=== PATIENT | female | born 2000 | race African-American/Black ===

== ENCOUNTER 2024-01-15 08:56 | Emergency (ER) | payer OTHER ==
--- OUTSIDE RECORDS SUMMARY | 2024-01-15 09:01 | XMS REPORT | Continuity of Care Document ---
Author Name Unknown Address [address] [place] [address] [facility] Address [address] [place] [address] Care Team Providers Care Technical Education Teacher Name Role Phone Donna Smith Primary Care Physician [phone] SANTOS MADSEN Attending Clinician Unavailable FERN MAC Attending Clinician Unavailable WALESKA BOLANOS Attending Clinician UnavailCHUCKY Fraga Attending Clinician Unavailable [facility] Attending Clinician Unavailable Chloé SALAS, Kiara Attending Clinician [phone] KIARA VORA Attending Clinician Unavailab le 2, [facility] Attending Clinician Unavailable PER SANDERS Attending Clinician UnavailPER Brock Attending Clinician Unavaila Tamy Mckeon MD Attending Clinician [phone] SANTA LINK Attending Clinician Unavailable Santa Link MD Attending Clinician [phone] Doctor Unassigned, Ethel Attending Clinician U nikolayailLUBA Bliss Attending Clinician Unavailable Luba Cespedes Attending Clinician [phone] ROMEL FIGUEROA Attending Clinician UnavailRomel Rodarte MD Attending Clinician [phone] Payers Payer Name Policy Type Policy Number Effective Date Expirati on Date Source AETNA MP [facility] O MEDICAL DOCTOR MD/MEDICAL DIRECTOR 94 ON 9 [id number] 2023 00:00:00 [facility] JACQUI-PHILIPSALOME ROY-C COPAY FOCUS 9 [id number] 2023 00:00:00 Problems Condition Name Condition Details Condition Category Status Onset Date Resolution Date Last Treatment Date Treating Clinician Comments Source Well adult exam Well adult exam Disease Active 01-10 00:00: 00 Jacqui Seybold - Externa l Bipolar affective disorder, remission status unspecifie d (multi HCC) Bipolar affective disorder, remission status unspecifie d (multi HCC) Disease Active 18 00:00: 00 Jacqui Seybold - Externa l Chronic bilateral low back pain without sciatica Chronic bilateral low back pain without sciatica Disease Active 4-25 00:00: 00 Jacqui Seybold - Externa l Vaginal odor Vaginal odor Disease Active 6- 00:00: 00 [facility] BMI 45.0-49.9, adult BMI 45.0-49.9, adult Disease Active 6-11 00:00: 00 [facility] Generalize d anxiety disorder Generalize d anxiety disorder Disease Active 2-09 00:00: 00 [facility] Attention deficit hyperactiv ity disorder, 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, predominan tly inattentiv e type Disease Active 3-14 00:00: 00 [facility] Bipolar disorder Bipolar disorder Disease Active 7-19 00:00: 00 [facility] No known active problems No known active problems Disease [facility] Depression Depression Disease Active K elsey Seybold - Externa l Anxiety Anxiety Disease Active Jacqui Seybold - Externa l Obesity Obesity Disease Active Jacqui Seybold - Externa l Allergies, Adverse Reactions, Alerts Allergy Name Allergy Type Status Severity Reaction(s) Onset Date Inactive Date Treating Clinician Comments Source NO KNOWN ALLERGIE S Drug Class Active [facility] Social History Social Habit Start Date Stop Date Quantity Comments Source Gender identity [facility] Sexual orientation K elsey Seybold - External Alcoholic beverage intake 2024-01-11 00:00:00 2024-01-11 00:00:00 Current drinker of alcohol (finding) Jacqui Ortega - External History of Social function 2023-11-18 00:00:00 2023-11-18 00:00:00 Jacqui Ortega - External Education 2023-11-18 00:00:00 2023-11-18 00:00:00 16 Jacqui Ortega - External Alcohol Comment 2023-11-18 00:00:00 2023-11-18 00:00:00 occasionally Jacqui Ortega - External Tobacco use and exposure 2023-11-17 00:00:00 2023-11-17 00:00:00 Smokeless tobacco non-user Jacqui Ortega - External Alcohol intake 2023-06-01 00:00:00 2023-06-01 00:00:00 Lifetime non-drinker (finding) [facility] Exposure to SARS-CoV-2 (event) 2022-11-15 00:00:00 2022-11-25 15:02:00 Not sure [facility] Sex assigned at 2001 00:00:00 2000 00:00:00 Jacqui Ortega - External Smoking Status Start Date Stop Date Source Unknown if ever smoked [facility] Never smoked tobacco Jacqui Ortega - External Medications Ordered Medication Name Filled Medication Name Start Date Stop Date Current Medication? Ordering Clinician Indication Dosage Frequency Signature (SIG) Comments Components Source Topiramate 25 MG oral Tablet 01-10 00:00: 00 Yes [id number] 104 25mg Take 1 tablet (25 mg total) by mouth 2 times daily. Jacqui parker Bupropion HCL XL 150 MG OR TB24 11-17 00:00: 00 01-10 00:00 :00 No [id number] 150mg Take 1 tablet (150 mg total) by mouth every morning. Jacqui parker Topiramate 25 MG oral Tablet 11-17 00:00: 00 01-10 00:00 :00 No [id number] 104 25mg Take 1 tablet (25 mg total) by mouth daily. Jacqui parker Aripiprazol e 5 MG oral Tablet 2022-07 00:00: 00 11-17 00:00 :00 No 5mg Take 1 tablet (5 mg total) by mouth daily. Jacqui parker semaglutide , weight loss, (WEGOVY) 0.25 mg/0.5 mL PnIj SC injection 2022-07 00:00: 00 07-03 05:59 :00 No [id number] .25mg inject 0.25 mg under the skin weekly for 30 days. 1st dose [facility] semaglutide , weight loss, (WEGOVY) 0.5 mg/0.5 mL PnIj SC injection 2022-07 00:00: 00 07-03 05:59 :00 No [id number] .5mg inject 0.5 mg under the skin weekly for 30 days. 2nd dose [facility] semaglutide , weight loss, (WEGOVY) 1 mg/0.5 mL PnIj SC injection 2022-07 00:00: 00 07-03 05:59 :00 No [id number] 1mg inject 1 mg under the skin weekly for 30 days. 3rd dose [facility] (BLOOD PRESSURE CUFF) [facility] 04-06 00:00: 00 Yes [id number] Blood pressure check twice a day and as needed. [facility] Bupropion HCL XL 300 MG OR TB24 04-06 00:00: 00 11-17 00:00 :00 No 300mg Take 1 tablet (300 mg total) by mouth daily. Jacqui parker ARIPiprazol e (ABILIFY) 2 mg tablet 04-06 00:00: 00 06-02 00:00 :00 No [id number] 2mg Take 1 tablet by mouth in the morning. [facility] naltrexone 50 mg tablet 12 00:00: 00 06-01 00:00 :00 No [id number] 50mg Take 1 tablet by mouth in the morning. [facility] buPROPion XL 150 mg 24 hr tablet 01-04 00:00: 00 04-06 00:00 :00 No [id number] 150mg Take 1 tablet by mouth in the morning. [facility] cariprazine (VRAYLAR) 1.5 mg Cap 01-01 15:20: 51 01-01 00:00 :00 No Vraylar 1.5 mg capsule Take 1 capsule every day by oral route at bedtime for 30 days. [facility] metroNIDAZO LE 500 mg tablet 12-28 00:00: 00 01-05 04:59 :00 No [id number] 500mg Take 1 tablet by mouth every 12 (twelve) hours for 7 days. [facility] terconazole 80 mg vaginal suppository 11-27 00:00: 00 04-06 00:00 :00 No [id number] 80mg Insert 1 Suppositor y into vagina at bedtime. [facility] cariprazine (VRAYLAR) 1.5 mg Cap 11-25 15:34: 08 Yes Vraylar 1.5 mg capsule Take 1 capsule every day by oral route at bedtime for 30 days. [facility] Nitrofurant oin&Nit. Macrocryst 100 mg capsule 08-30 00:00: 00 01-01 00:00 :00 No [id number] 100mg Take 1 capsule by mouth in the morning and 1 capsule in the evening. [facility] No known medications 2020-07 10:02: 56 No [facility] cariprazine (VRAYLAR) 1.5 mg Cap 2020-07 10:02: 11 Yes Vraylar 1.5 mg capsule Take 1 capsule every day by oral route at bedtime for 30 days. [facility] methylPREDN ISolone (MEDROL, HANNY,) 4 mg tablets 2020-07 00:00: 00 01-01 00:00 :00 No [id number] 9103 84mg Take 21 tablets by mouth SEE-INSTRU CTIONS. follow package directions [facility] busPIRone 15 mg tablet 2020-07 0 00:00: 00 01-01 00:00 :00 No [facility] Immunizations Ordered Immunization Name Filled Immunization Name Date Status Comments Source IPV- Inactivated Polio Vaccine Unknown Completed Jacqui Seybold - External IPV- Inactivated Polio Vaccine Unknown Completed Jacqui Seybold - External IPV- Inactivated Polio Vaccine Unknown Completed Jacqui Seybold - External IPV- Inactivated Polio Vaccine Unknown Completed Jacqui Seybold - External Tdap- (Boostrix, Adacel) Unknown Completed Jacqui Seybold - External Varicella Vaccine Unknown Completed Kris lsey Seybold - External Varicella Vaccine Unknown Completed Kris lsey Seybold - External DTaP Unknown Completed Jacqui Sey bold - External DTaP Unknown Completed Jacqui Sey bold - External DTaP Unknown Completed Jacqui Sey bold - External DTaP Unknown Completed Jacqui Rothmany bold - External DTaP Unknown Completed Jacqui Sey bold - External DTaP Unspecified Unknown Completed Jin sey Seybold - External DTaP Unspecified Unknown Completed Jin sey Seybold - External DTaP Unspecified Unknown Completed Jin sey Seybold - External DTaP Unspecified Unknown Completed Jin sey Seybold - External DTaP Unspecified Unknown Completed Jin rothmany Seybold - External Influenza, Injectable, Mdck, Preservative Free, Quadrivalent Unknown Completed Jacqui Se ybold - External HEPATITIS A- PEDI/ADOL Unknown Completed Jacqui Seybold - External HEPATITIS A- PEDI/ADOL Unknown Completed Jacqui Seybold - External Hepatitis B, Adolescent Or Pediatric Unknown Completed Jacqui Seybold - External Hepatitis B, Adolescent Or Pediatric Unknown Completed Jacqui Seybold - External Hepatitis B, Adolescent Or Pediatric Unknown Completed Jacqui Seybold - External HIB- Haemophilus Influenzae Type B Unknown Completed Jacqui Sey bold - External HIB- Haemophilus Influenzae Type B Unknown Completed Jacqui Sey bold - External HIB- Haemophilus Influenzae Type B Unknown Completed Jacqui Sey bold - External HIB- Haemophilus Influenzae Type B Unknown Completed Jacqui Sey bold - External HPV 4 (Human Papillomavirus) Unknown Completed Jacqui Seybo ld - External HPV 4 (Human Papillomavirus) Unknown Completed Jacqui Seybo ld - External HPV 9 (Human Papillomavirus) Unknown Completed Jacqui Seybo ld - External Meningococcal Vaccine- Conjugate(Menactra) Unknown Completed [facility] eybold - External Meningococcal Vaccine- Conjugate(Menactra) Unknown Completed [facility] eybo - External Bexsero (Meningococcal Group B) Unknown Completed [facility] - External Bexsero (Meningococcal Group B) Unknown Completed [facility] - External MMR- Measles, Mumps, Rubella Unknown Completed [facility] - External MMR- Measles, Mumps, Rubella Unknown Completed [facility] - External MMR- Measles, Mumps, Rubella Unknown Completed [facility] - External Pneumococcal Vaccine, Conjugate 7 Unknown Completed [facility] - External Pneumococcal Vaccine, Conjugate 7 Unknown Completed [facility] - External Pneumococcal Vaccine, Conjugate 7 Unknown Completed [facility] External Pneumococcal Vaccine, Conjugate 7 Unknown Completed [facility] External IPV- Inactivated Polio Vaccine Unknown Completed [facility] External IPV- Inactivated Polio Vaccine Unknown Completed [facility] External IPV- Inactivated Polio Vaccine Unknown Completed [facility] External IPV- Inactivated Polio Vaccine Unknown Completed [facility] External Tdap- (Boostrix, Adacel) Unknown Completed [facility] External Varicella Vaccine Unknown Completed [facility] - External Varicella Vaccine Unknown Completed [facility] - External Influenza Virus Vaccine Quad IM, Preserv and ABX Free 6 MO-64 YRS (FLUCELVAX) Unknown Completed [facility] DTAP Unknown Completed [facility] DTAP Unknown Completed [facility] DTAP Unknown Completed [facility] DTAP Unknown Completed [facility] DTAP Unknown Completed [facility] Hep B, Adol or Pedi Dosage Unknown Completed [facility] Hep B, Adol or Pedi Dosage Unknown Completed [facility] Hep B, Adol or Pedi Dosage Unknown Completed [facility] Heamophilus Influenza B Unknown Completed [facility] Heamophilus Influenza B Unknown Completed [facility] Heamophilus Influenza B Unknown Completed [facility] IPV Unknown Completed [facility] IPV Unknown Completed [facility] IPV Unknown Completed [facility] IPV Unknown Completed [facility] MMR Unknown Completed [facility] MMR Unknown Completed [facility] MMR Unknown Completed [facility] Pneumococcal 7 Conjugate, PCV7 (Prevnar7) Unknown Completed [facility] Pneumococcal 7 Conjugate, PCV7 (Prevnar7) Unknown Completed [facility] Pneumococcal 7 Conjugate, PCV7 (Prevnar7) Unknown Completed [facility] Pneumococcal 7 Conjugate, PCV7 (Prevnar7) Unknown Completed [facility] TDAP Unknown Completed [facility] Varicella (varivax)(chicken pox) Unknown Completed [facility] Varicella (varivax)(chicken pox) [facility] SARS-COV-2 COVID-19 VACCINE - (MODERNA) Unknown Completed [facility] SARS-COV-2 COVID-19 VACCINE - (MODERNA) Unknown Completed [facility] SARS-COV-2 COVID-19 VACCINE - (MODERNA) Unknown Completed [facility] DTaP, Unspecified Formulation Unknown Completed [facility] DTaP, Unspecified Formulation Unknown Completed [facility] DTaP, Unspecified Formulation Unknown Completed [facility] DTaP, Unspecified Formulation Unknown Completed [facility] DTaP, Unspecified Formulation Unknown Completed [facility] Meningococcal Polysaccharide (groups A, C, Y and W-135) conjugate vaccine (MCV4P) Unknown Completed [facility] Meningococcal Polysaccharide (groups A, C, Y and W-135) conjugate vaccine (MCV4P) Unknown Completed [facility] Meningococcal B, OMV Unknown Completed [facility] Meningococcal B, OMV Unknown Completed [facility] HPV9 Unknown Completed [facility] HPV Unknown Completed [facility] HPV Unknown Completed [facility] HIB 4 Dose Schedule Unknown Completed [facility] HEPATITIS A Unknown Completed [facility] HEPATITIS A Unknown Completed [facility] Influenza Virus Vaccine Quad IM, Preserv and ABX Free 6 MO-64 YRS (FLUCELVAX) Unknown Completed [facility] DTAP Unknown Completed [facility] DTAP Unknown Completed [facility] DTAP Unknown Completed [facility] DTAP Unknown Completed [facility] DTAP Unknown Completed [facility] Hep B, Adol or Pedi Dosage Unknown Completed [facility] Hep B, Adol or Pedi Dosage Unknown Completed [facility] Hep B, Adol or Pedi Dosage Unknown Completed [facility] Heamophilus Influenza B Unknown Completed [facility] Heamophilus Influenza B Unknown Completed [facility] Heamophilus Influenza B Unknown Completed [facility] IPV Unknown Completed [facility] IPV Unknown Completed [facility] IPV Unknown Completed [facility] IPV Unknown Completed [facility] MMR Unknown Completed [facility] MMR Unknown Completed [facility] MMR Unknown Completed [facility] Pneumococcal 7 Conjugate, PCV7 (Prevnar7) Unknown Completed [facility] Pneumococcal 7 Conjugate, PCV7 (Prevnar7) Unknown Completed [facility] Pneumococcal 7 Conjugate, PCV7 (Prevnar7) Unknown Completed [facility] Pneumococcal 7 Conjugate, PCV7 (Prevnar7) Unknown Completed [facility] TDAP Unknown Completed [facility] Varicella (varivax)(chicken pox) Unknown Completed [facility] Varicella (varivax)(chicken pox) Unknown Completed [facility] SARS-COV-2 COVID-19 VACCINE - (MODERNA) Unknown Completed [facility] SARS-COV-2 COVID-19 VACCINE - (MODERNA) Unknown Completed [facility] SARS-COV-2 COVID-19 VACCINE - (MODERNA) Unknown Completed [facility] DTaP, Unspecified Formulation Unknown Completed [facility] DTaP, Unspecified Formulation Unknown Completed [facility] DTaP, Unspecified Formulation Unknown Completed [facility] DTaP, Unspecified Formulation Unknown Completed [facility] DTaP, Unspecified Formulation Unknown Completed [facility] Meningococcal Polysaccharide (groups A, C, Y and W-135) conjugate vaccine (MCV4P) Unknown Completed [facility] Meningococcal Polysaccharide (groups A, C, Y and W-135) conjugate vaccine (MCV4P) Unknown Completed [facility] Meningococcal B, OMV Unknown Completed [facility] Meningococcal B, OMV Unknown Completed [facility] HPV9 Unknown Completed [facility] HPV Unknown Completed [facility] HPV Unknown Completed [facility] HIB 4 Dose Schedule Unknown Completed [facility] HEPATITIS A Unknown Completed [facility] HEPATITIS A Unknown Completed [facility] Influenza Virus Vaccine Quad IM, Preserv and ABX Free 6 MO-64 YRS (FLUCELVAX) Unknown Completed [facility] DTAP Unknown Completed [facility] DTAP Unknown Completed [facility] DTAP Unknown Completed [facility] DTAP Unknown Completed [facility] DTAP Unknown Completed [facility] Hep B, Adol or Pedi Dosage Unknown Completed [facility] Hep B, Adol or Pedi Dosage Unknown Completed [facility] Hep B, Adol or Pedi Dosage Unknown Completed [facility] Heamophilus Influenza B Unknown Completed [facility] Heamophilus Influenza B Unknown Completed [facility] Heamophilus Influenza B Unknown Completed [facility] IPV Unknown Completed [facility] IPV Unknown Completed [facility] IPV Unknown Completed [facility] IPV Unknown Completed [facility] MMR Unknown Completed [facility] MMR Unknown Completed [facility] MMR Unknown Completed [facility] Pneumococcal 7 Conjugate, PCV7 (Prevnar7) Unknown Completed [facility] Pneumococcal 7 Conjugate, PCV7 (Prevnar7) Unknown Completed [facility] Pneumococcal 7 Conjugate, PCV7 (Prevnar7) Unknown Completed [facility] Pneumococcal 7 Conjugate, PCV7 (Prevnar7) Unknown Completed [facility] TDAP Unknown Completed [facility] Varicella (varivax)(chicken pox) Unknown Completed [facility] Varicella (varivax)(chicken pox) Unknown Completed [facility] SARS-COV-2 COVID-19 VACCINE - (MODERNA) Unknown Completed [facility] SARS-COV-2 COVID-19 VACCINE - (MODERNA) Unknown Completed [facility] SARS-COV-2 COVID-19 VACCINE - (MODERNA) Unknown Completed [facility] DTaP, Unspecified Formulation Unknown Completed [facility] DTaP, Unspecified Formulation Unknown Completed [facility] DTaP, Unspecified Formulation Unknown Completed [facility] DTaP, Unspecified Formulation Unknown Completed [facility] DTaP, Unspecified Formulation Unknown Completed [facility] Meningococcal Polysaccharide (groups A, C, Y and W-135) conjugate vaccine (MCV4P) Unknown Completed [facility] Meningococcal Polysaccharide (groups A, C, Y and W-135) conjugate vaccine (MCV4P) Unknown Completed [facility] Meningococcal B, OMV Unknown Completed [facility] Meningococcal B, OMV Unknown Completed [facility] HPV9 Unknown Completed [facility] HPV Unknown Completed [facility] HPV Unknown Completed [facility] HIB 4 Dose Schedule Unknown Completed [facility] HEPATITIS A Unknown Completed [facility] HEPATITIS A Unknown Completed [facility] Influenza Virus Vaccine Quad IM, Preserv and ABX Free 6 MO-64 YRS (FLUCELVAX) Unknown [facility] DT[facility] Unknown Completed [facility] DTAP Unknown Completed [facility] DTAP Unknown Completed [facility] DTAP Unknown Completed [facility] DTAP Unknown Completed [facility] Hep B, Adol or Pedi Dosage Unknown Completed [facility] Hep B, Adol or Pedi Dosage Unknown Completed [facility] Hep B, Adol or Pedi Dosage Unknown Completed [facility] Heamophilus Influenza B Unknown Completed [facility] Heamophilus Influenza B Unknown Completed [facility] Heamophilus Influenza B Unknown Completed [facility] IPV Unknown Completed [facility] IPV Unknown Completed [facility] IPV Unknown Completed [facility] IPV Unknown Completed [facility] MMR Unknown Completed [facility] MMR Unknown Completed [facility] MMR Unknown Completed [facility] Pneumococcal 7 Conjugate, PCV7 (Prevnar7) Unknown Completed [facility] Pneumococcal 7 Conjugate, PCV7 (Prevnar7) Unknown Completed [facility] Pneumococcal 7 Conjugate, PCV7 (Prevnar7) Unknown Completed [facility] Pneumococcal 7 Conjugate, PCV7 (Prevnar7) Unknown Completed [facility] TDAP Unknown Completed [facility] Varicella (varivax)(chicken pox) Unknown Completed [facility] Varicella (varivax)(chicken pox) Unknown Completed [facility] SARS-COV-2 COVID-19 VACCINE - (MODERNA) Unknown Completed [facility] SARS-COV-2 COVID-19 VACCINE - (MODERNA) Unknown Completed [facility] SARS-COV-2 COVID-19 VACCINE - (MODERNA) Unknown Completed [facility] DTaP, Unspecified Formulation Unknown Completed [facility] DTaP, Unspecified Formulation Unknown Completed [facility] DTaP, Unspecified Formulation Unknown Completed [facility] DTaP, Unspecified Formulation Unknown Completed [facility] DTaP, Unspecified Formulation Unknown Completed [facility] Meningococcal Polysaccharide (groups A, C, Y and W-135) conjugate vaccine (MCV4P) Unknown Completed [facility] Meningococcal Polysaccharide (groups A, C, Y and W-135) conjugate vaccine (MCV4P) Unknown Completed [facility] Meningococcal B, OMV Unknown Completed [facility] Meningococcal B, OMV Unknown Completed [facility] HPV9 Unknown Completed [facility] HPV Unknown Completed [facility] HPV Unknown Completed [facility] HIB 4 Dose Schedule Unknown Completed [facility] HEPATITIS A Unknown Completed [facility] HEPATITIS A Unknown Completed [facility] DTaP Unknown Completed Jacqui Sey bold - External DTaP Unknown Completed Jacqui Sey bold - External DTaP Unknown Completed Jacqui Sey bold - External DTaP Unknown Completed Jacqui Sey bold - External DTaP Unknown Completed Jacqui Sey bold - External DTaP Unspecified Unknown Completed Jin sey Seybold - External DTaP Unspecified Unknown Completed Jin sey Seybold - External DTaP Unspecified Unknown Completed Jin sey Seybold - External DTaP Unspecified Unknown Completed Jin sey Seybold - External DTaP Unspecified Unknown Completed Jin sey Seybold - External Influenza, Injectable, Mdck, Preservative Free, Quadrivalent Unknown Completed Jacqui Se ybold - External HEPATITIS A- PEDI/ADOL Unknown Completed Jacqui Seybold - External HEPATITIS A- PEDI/ADOL Unknown Completed Jacqui Seybold - External Hepatitis B, Adolescent Or Pediatric Unknown Completed Jacqui Seybold - External Hepatitis B, Adolescent Or Pediatric Unknown Completed Jacqui Seybold - External Hepatitis B, Adolescent Or Pediatric Unknown Completed Jacqui Seybold - External HIB- Haemophilus Influenzae Type B Unknown Completed Jacqui Sey bold - External HIB- Haemophilus Influenzae Type B Unknown Completed Jacqui Leon bold - External HIB- Haemophilus Influenzae Type B Unknown Completed Jacqui Leon bold - External HIB- Haemophilus Influenzae Type B Unknown Completed Jacqui Leon bold - External HPV 4 (Human Papillomavirus) Unknown Completed Jacqui Fischer ld - External HPV 4 (Human Papillomavirus) Unknown Completed Jacqui Fischer ld - External HPV 9 (Human Papillomavirus) Unknown Completed Jacqui Fischer ld - External Meningococcal Vaccine- Conjugate(Menactra) Unknown Completed Jacqui Terrell eybold - External Meningococcal Vaccine- Conjugate(Menactra) Unknown Completed Jacqui Terrell eybold - External Bexsero (Meningococcal Group B) Unknown Completed Jacqui Seybold - External Bexsero (Meningococcal Group B) Unknown Completed Jacqui Rothmanybold - External MMR- Measles, Mumps, Rubella Unknown Completed Jacqui Rothmanybold - External MMR- Measles, Mumps, Rubella Unknown Completed Jacqui Rothmanybold - External MMR- Measles, Mumps, Rubella Unknown Completed Jacqui Mcdonaldold - External Pneumococcal Vaccine, Conjugate 7 Unknown Completed Jacqui Rothmanybold - External Pneumococcal Vaccine, Conjugate 7 Unknown Completed Jacqui Rothmanybold - External Pneumococcal Vaccine, Conjugate 7 Unknown Completed Jacqui Rothmanybold - External Pneumococcal Vaccine, Conjugate 7 Unknown Completed Jacqui Rothmanybold - External Vital Signs Vital Name Observation Time Observation Value Comments S ource Systolic blood pressure 2024-01-11 19:46:00 122 mm[Hg] Jacqui Mcdonaldo ld - External Diastolic blood pressure 2024-01-11 19:46:00 81 mm[Hg] Jacqui Mcdonaldo ld - External Heart rate 2024-01-11 19:46:00 84 /min Jinse banks Seybsalome - External Body temperature 2024-01-11 19:46:00 37.22 Nadia Jacqui Rothmanybold - External Respiratory rate 2024-01-11 19:46:00 13 /min Jacqui Rothmanybold - External Body height 2024-01-11 19:46:00 167.6 cm Rosa golden Seybold - External Body weight 2024-01-11 19:46:00 146.058 kg Rosa golden Seybold - External BMI 2024-01-11 19:46:00 51.97 kg/m2 Rosa ey Seybold - External Oxygen saturation in Arterial blood by Pulse oximetry 2024-01-11 19:46:00 98 /min Jacqui Mcdonaldo ld - External Systolic blood pressure 2023-11-18 18:56:00 118 mm[Hg] Jacqui Mcdonaldo ld - External Diastolic blood pressure 2023-11-18 18:56:00 68 mm[Hg] Jacqui Mcdonaldo ld - External Heart rate 2023-11-18 18:56:00 88 /min Merry banks Seybsalome - External Body temperature 2023-11-18 18:56:00 37.06 Nadia Jacqui Rothmanybold - External Respiratory rate 2023-11-18 18:56:00 18 /min Jacqui Rothmanybold - External Body height 2023-11-18 18:56:00 168.9 cm Rosaabhay golden Seybold - External Body weight 2023-11-18 18:56:00 146.115 kg Rosaabhay golden Seybold - External BMI 2023-11-18 18:56:00 51.21 kg/m2 Rosa chantel Rothmanybold - External Oxygen saturation in Arterial blood by Pulse oximetry 2023-11-18 18:56:00 98 /min Jacqui Fischer ld - External Systolic blood pressure 2023-06-01 20:25:00 148 mm[Hg] [facility] Diastolic blood pressure 2023-06-01 20:25:00 97 mm[Hg] [facility] Heart rate 2023-06-01 20:23:00 84 /min [facility] 2023-06-01 20:23:00 36.56 Nadia [facility] Respiratory rate 2023-06-01 20:23:00 16 /min [facility] Body height 2023-06-01 20:23:00 168.9 cm [facility] Body weight 2023-06-01 20:23:00 134.31 kg [facility] BMI 2023-06-01 20:23:00 47.08 kg/m2 [facility] Oxygen saturation in Arterial blood by Pulse oximetry 2023-06-01 20:23:00 100 /min [facility] Systolic blood pressure 2023-04-06 19:19:00 168 mm[Hg] [facility] Diastolic blood pressure 2023-04-06 19:19:00 95 mm[Hg] [facility] Heart rate 2023-04-06 19:17:00 89 /min [facility] Body temperature 2023-04-06 19:17:00 37 Nadia [facility] Respiratory rate 2023-04-06 19:17:00 18 /min [facility] Body height 2023-04-06 19:17:00 167.6 cm [facility] Body weight 2023-04-06 19:17:00 134.083 kg [facility] BMI 2023-04-06 19:17:00 47.71 kg/m2 [facility] Oxygen saturation in Arterial blood by Pulse oximetry 2023-04-06 19:17:00 98 /min [facility] Systolic blood pressure 2023-01-01 20:03:00 136 mm[Hg] [facility] Diastolic blood pressure 2023-01-01 20:03:00 87 mm[Hg] [facility] Heart rate 2023-01-01 20:03:00 87 /min [facility] Body temperature 2023-01-01 20:03:00 37.22 Nadia [facility] Body height 2023-01-01 20:03:00 167.6 cm [facility] Body weight 2023-01-01 20:03:00 137.304 kg [facility] BMI 2023-01-01 20:03:00 48.86 kg/m2 [facility] Oxygen saturation in Arterial blood by Pulse oximetry 2023-01-01 20:03:00 98 /min [facility] Systolic blood pressure 2022-12-28 19:57:00 135 mm[Hg] [facility] Diastolic blood pressure 2022-12-28 19:57:00 84 mm[Hg] [facility] Heart rate 2022-12-28 19:57:00 74 /min [facility] Respiratory rate 2022-12-28 19:57:00 18 /min [facility] Body height 2022-12-28 19:57:00 167.6 cm [facility] Body weight 2022-12-28 19:57:00 138.347 kg [facility] BMI 2022-12-28 19:57:00 49.23 kg/m2 [facility] Diastolic blood pressure 2022-11-25 20:32:00 86 mm[Hg] [facility] Heart rate 2022-11-25 20:32:00 79 /min [facility] Body temperature 2022-11-25 20:32:00 36.89 Nadia [facility] Respiratory rate 2022-11-25 20:32:00 18 /min [facility] Body height 2022-11-25 20:32:00 168.9 cm [facility] Body weight 2022-11-25 20:32:00 137.032 kg [facility] BMI 2022-11-25 20:32:00 48.03 kg/m2 [facility] Systolic blood pressure 2022-11-25 20:32:00 126 mm[Hg] [facility] Systolic blood pressure 2022-08-30 20:45:00 132 mm[Hg] [facility] Diastolic blood pressure 2022-08-30 20:45:00 87 mm[Hg] [facility] Heart rate 2022-08-30 20:45:00 84 /min [facility] Body temperature 2022-08-30 20:45:00 37.72 Nadia [facility] Respiratory rate 2022-08-30 20:45:00 16 /min [facility] Body height 2022-08-30 20:45:00 167.6 cm [facility] Body weight 2022-08-30 20:45:00 113.399 kg [facility] BMI 2022-08-30 20:45:00 40.35 kg/m2 [facility] Oxygen saturation in Arterial blood by Pulse oximetry 2022-08-30 20:45:00 100 /min [facility] Systolic blood pressure 2021-07-11 16:04:00 124 mm[Hg] [facility] Diastolic blood pressure 2021-07-11 16:04:00 83 mm[Hg] [facility] Heart rate 2021-07-11 16:04:00 73 /min [facility] Body height 2021-07-11 16:04:00 167.6 cm [facility] Body weight 2021-07-11 16:04:00 127.914 kg [facility] BMI 2021-07-11 16:04:00 45.52 kg/m2 [facility] Body mass index (BMI) [Percentile] Per age and sex 2021-07-11 16:04:00 98.95 % [facility] Procedures Procedure Date / Time Performed Performing Clinician Source FLU VACC ([id number]), 6 MO-64 YRS, .5ML, IM, QUAD (FLUCELVAX) 2023-06-01 20:32:50 Kiara Vora [facility] FREE T4 2023-01-01 21:14:00 Kiara Vora Un [facility] THYROID STIMULATING HORMONE 2023-01-01 21:14:00 Chloé jazmine [facility] COMP. METABOLIC PANEL (58699) 2023-01-01 21:14:00 Kiara Vora [facility] LIPID PANEL (91994)(TOTAL CHOLESTEROL, TRIGLYCERIDES, HDL) 2023-01-01 21:14:00 Kiara Vora [facility] CBC WITH DIFF 2023-01-01 21:14:00 [facility] (A1C) 2023-01-01 21:14:00 Kiara Vora [facility] FREE T3 2023-01-01 21:14:00 Kiara Vora [facility] ASSIGNMENT OF BENEFITS 2022-11-25 20:00:05 Docto r Unassigned, Ethel [facility] POCT URINALYSIS W/O SPECIFIC GRAVITY 2022-11-25 00:00:00 Santa Link [facility] URINALYSIS 2022-08-30 21:01:00 Luba Gamble [facility] NOTICE OF PRIVACY PRACTICES 2022-08-30 20:40:12 Doctor Unassigned, Ethel [facility] CONSENT/REFUSAL FOR DIAGNOSIS AND TREATMENT 2022-08-30 20:39:45 Doctor Unassigned, Ethel [facility] XR HAND 3+ VW LEFT 2021-07-11 16:22:00 Romel Figueroa [facility] REFERRAL- REQUEST/RESPONSE 2021-07-10 06:01:00 Doctor Unassigned, Ethel [facility] Encounters Start Date/Time End Date/Time Encounter Type Admission Type Attending [facility] Facility Care Department Encounter ID Source 2024-04-12 15:30:00 2024-04-12 15:30:00 Outpatient SANTOS MADSEN [id number] Jacqui [facility] 2024-03-20 11:00:00 2024-03-20 11:00:00 Outpatient FERN MAC [id number] [facility] 2024-02-10 16:00:00 2024-02-10 16:00:00 Outpatient WALESKA BOLANOS [id number] [facility] 2024-01-24 14:45:00 2024-01-24 14:45:00 Outpatient CHUCKY CATALAN [id number] Jac[facility] 2024-01-11 15:00:00 2024-01-11 15:00:00 Outpatient SANTOS MADSEN [id number] Jac[facility] 2023-11-19 11:00:00 2023-11-19 11:00:00 Outpatient JACQUI CALDWELL [id number] [facility] 2023-11-19 10:55:00 2023-11-19 10:55:00 Outpatient JACQUI CALDWELL [id number] [facility] 2023-11-19 10:50:00 2023-11-19 10:50:00 Outpatient JACQUI CALDWELL [id number] [facility] 2023-11-18 14:45:00 2023-11-18 14:45:00 Outpatient LAB90 JACQUI CALDWELL [id number] Jacqui Ortega 2023-11-18 14:00:00 2023-11-18 14:00:00 Outpatient SANTOS MADSEN [id number] [facility] 2023-06-08 00:00:00 2023-06-08 00:00:00 [facility] 1.2.840.114 350.1.13.10 4.2.7.2.686 [id number] [facility] 2023-06-01 14:30:00 2023-06-01 16:45:24 Outpatient R KIARA VORA [facility] [id number] [facility] 2023-06-01 14:30:00 2023-06-01 16:45:24 Office Visit Kiara Vora [facility] 1.2.840.114 350.1.13.10 4.2.7.2.686 [id number] [facility] 2023-04-06 14:30:00 2023-04-06 15:05:46 Outpatient R KIARA VORA 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 [id number] [facility] 2023-01-01 15:00:00 2023-01-01 15:58:57 Office Visit Kiara Vora [facility] 1.2.840.114 350.1.13.10 4.2.7.2.686 [id number] [facility] 2022-12-28 15:00:00 2022-12-28 15:07:56 Outpatient R PER SANDERS [facility]ERY[facility] [id number] [facility] 2022-12-28 15:00:00 2022-12-28 15:07:56 Office Visit Per Sanders [facility] 1..840.114 350.1.13.10 4.2.7.2.686 [id number] [facility] 2022-12-02 00:00:00 2022-12-02 00:00:00 [facility] 1.2.840.114 350.1.13.10 4.2.7.2.686 [id number] [facility] 2022-11-27 00:00:00 2022-11-27 00:00:00 [facility] 1.2.840.114 350.1.13.10 4.2.7.2.686 [id number] [facility] 2022-11-25 15:00:00 2022-11-25 16:58:37 Outpatient R [address] [facility] [id number] [facility] 2022-11-25 15:00:00 2022-11-25 15:30:00 Office Visit Santa Link [facility] 1..114 350.1.13.10 4.2.7.2.686 [id number] [facility] 2022-11-25 00:00:00 2022-11-25 00:00:00 Orders Only Doctor Unassigned, Ethel [facility] 1.0.114 350.1.13.10 4.2.7.2.686 [id number] [facility] 2022-08-30 14:47:00 2022-08-30 16:49:00 Emergency X LUBA GAMBLE [facility] ERT [id number] [facility] 2022-08-30 14:47:00 2022-08-30 16:49:00 Emergency Luba Gamble [facility] 1..114 350.1.13.10 4.2.7.2.686 [id number] [facility] 2021-07-11 10:14:05 2021-07-11 23:59:00 [address] [facility] [id number] [facility] 2021-07-11 10:14:05 2021-07-11 23:59:00 Hospital Encounter Romel Figueroa [facility] 1..114 350.1.13.10 4.2.7.2.686 [id number] [facility] 2021-07-11 10:00:00 2021-07-11 10:30:10 Office Visit Romel Figueroa [facility] 1.0.114 350.1.13.10 4.2.7.2.686 [id number] [facility] 2021-07-11 10:00:00 2021-07-11 10:00:00 Outpatient R [facility] [facility] [id number] [facility] 2021-07-11 00:00:00 2021-07-11 00:00:00 Orders Only Doctor Unassigned, Ethel [facility] 1.2.840.114 350.1.13.10 4.2.7.2.686 [id number] [facility] 2021-07-10 00:00:00 2021-07-10 00:00:00 Orders Only Doctor Unassigned, Ethel [facility] 1.2.840.114 350.1.13.10 4.2.7.2.686 [id number] [facility] Results Test Description Test Time Test Comments Results Result Co mments Source [facility]2023-01-01 23:06:42* Test Item Value Reference Range Interpretation Comme [facility] HGB A1C (test code = 4548-4) 4.9 % 4.0-5.7 ANDRES (test code = ANDRES) Reference RangesNormal: <5.7%Prediabetes: 5.7 - 6.4%Diabetes: > 6.5% Lab Interpretation (test code = 15936-9) Normal [facility] [id number] 23:04:28 * Test Item Value Reference Range Interpretation Comme nts TSH (test code = 1420548635) 1.24 See_Comment [Automated messa ge] The system which generated this result transmitted reference range: 0.45 - 4.70 mIU/L. The reference range was not used to interpret this result as normal/abnormal. Lab Interpretation (test code = 28853-2) Normal [facility] [id number] 23:04:28 * Test Item Value Reference Range Interpretation Comme nts TSH (test code = 2267382275) 1.24 See_Comment [Automated messa ge] The system which generated this result transmitted reference range: 0.45 - 4.70 mIU/L. The reference range was not used to interpret this result as normal/abnormal. Lab Interpretation (test code = 17737-9) [place] [id number] 22:50:47* Test Item Value Reference Range Interpretation Comme nts FREE T4 (test code = 5505844250) 0.93 See_Comment [Automated Percelloa ge] The system which generated this result transmitted reference range: 0.78 - 2.20 ng/dL:. The reference range was not used to interpret this result as normal/abnormal. Lab Interpretation (test code = 54508-7) [place] [id number] 22:50:47* Test Item Value Reference Range Interpretation Comme nts FREE T4 (test code = 6009406024) 0.93 See_Comment [Automated Percelloa ge] The system which generated this result transmitted reference range: 0.78 - 2.20 ng/dL:. The reference range was not used to interpret this result as normal/abnormal. Lab Interpretation (test code = 78328-4) [place] [id number] 22:50:27* Test Item Value Reference Range Interpretation Comme nts FREE T3 (test code = 9953281438) 3.61 pg/mL 2.77-5.27 Lab Interpretation (test cod e = 17662-8) [place] [id number] 22:50:27* Test Item Value Reference Range Interpretation Comme nts FREE T3 (test code = 2847601371) 3.61 pg/mL 2.77-5.27 Lab Interpretation (test cod e = 67039-5) Normal [facility] (47355)(TOTAL CHOLESTEROL, TRIGLYCERIDES, HDL)2023-01-01 22:33:43* Test Item Value Reference Range Interpretation Comme nts CHOL (test code = 1953443004) 141 mg/dL 120-200 HDL (test code = 4475286567) 52 mg/dL >=50 HDLC RATIO (test code = 2296082217) 2.7 <=4.5 TRIG (test code = 3299084498) 71 mg/dL 30-170 LDL CHOL (test code = 24160-6) 75 mg/dL <=160 VLDL (test code = 3050179112) 14 mg/dL 5-60 Lab Interpretation (test cod e = 10255-7) Normal [facility]. METABOLIC PANEL (99293)2023-01-01 22:33:43* Test Item Value Reference Range Interpretation Comme nts NA (test code = 8203021916) 141 mmol/L 135-145 K (test code = 1780750646) 4.1 mmol/L 3.5-5.0 CL (test code = 3242018396) 105 mmol/L 98-108 CO2 TOTAL (test code = 7084553890) 26 mmol/L 23-31 AGAP (test code = 8644778857) 10 2-16 BUN (test code = 2498421211) 17 mg/dL 7-23 GLUCOSE (test code = 0461770142) 86 mg/dL 70-110 CREATININE (test code = 5336442969) 0.71 mg/dL 0.50-1.04 TOTAL BILI (test code = 1133958974) 0.5 mg/dL 0.1-1.1 CALCIUM (test code = 6490814504) 9.4 mg/dL 8.6-10.6 T PROTEIN (test code = 7580456508) 7.7 g/dL 6.3-8.2 ALBUMIN (test code = 5381062171) 4.5 g/dL 3.5-5.0 ALK PHOS (test code = 9547244447) 58 U/L 34-122 ALTv (test code = 1742-6) 19 U/L 5-35 AST(SGOT) (test code = 5007258716) 20 U/L 13-40 eGFR (test code = 0577449018) 103.9 mL/min/1.73m2 ANDRES (test code = ANDRES) Association of Glomerular Filtration Rate (GFR) and Staging of Kidney Disease* + + +- +| GFR (mL/min/1.73 m2) ?| With Kidney Damage ?| ?Without Kidney Damage+ ------+ ----+ ------+| ?>90 ?| ?Stage one ?| ? Normal ?+ -+ + -+| ?60-89 ?| ?Stage two ?| ? Decreased GFR ? + + +- +| ?30-59 ?| ?Stage three ?| ? Stage three ? + + +- +| ?15-29 ?| ?Stage four ? | ? Stage four ?+ -+ + -+| ?<15 (or dialysis) ? ?| ?Stage five ? | ? Stage five ?+ -+ + -+ *Each stage assumes the associated GFR level has been in effect for at least three months. ?Stages 1 to 5, with or without kidney disease, indicate chronic kidney disease. Notes: Determination of stages one and two (with eGFR >59mL/min/1.73 m2) requires estimation of kidney damage for at least three months as defined by structural or functional abnormalities of the kidney, manifested by either:Pathological abnormalities or Markers of kidney damage (including abnormalities in the composition of the blood or urine or abnormalities in imaging tests). [facility] (89155)(TOTAL CHOLESTEROL, TRIGLYCERIDES, HDL)2023-01-01 22:33:43* Test Item Value Reference Range Interpretation Comme nts CHOL (test code = 7138313180) 141 mg/dL 120-200 HDL (test code = 3676484375) 52 mg/dL >=50 HDLC RATIO (test code = 7143242918) 2.7 <=4.5 TRIG (test code = 4235320378) 71 mg/dL 30-170 LDL CHOL (test code = 81177-9) 75 mg/dL <=160 VLDL (test code = 4643949430) 14 mg/dL 5-60 Lab Interpretation (test cod e = 79520-8) Normal [facility]IC [facility] (42223)2023-01-01 22:33:43* Test Item Value Reference Range Interpretation Comme nts NA (test code = 1530760567) 141 mmol/L 135-145 K (test code = 7789166151) 4.1 mmol/L 3.5-5.0 CL (test code = 8500229633) 105 mmol/L 98-108 CO2 TOTAL (test code = 9962004158) 26 mmol/L 23-31 AGAP (test code = 2452805722) 10 2-16 BUN (test code = 1099062722) 17 mg/dL 7-23 GLUCOSE (test code = 8518119193) 86 mg/dL 70-110 CREATININE (test code = 6368636420) 0.71 mg/dL 0.50-1.04 TOTAL BILI (test code = 7742541781) 0.5 mg/dL 0.1-1.1 CALCIUM (test code = 9137274437) 9.4 mg/dL 8.6-10.6 T PROTEIN (test code = 4353676376) 7.7 g/dL 6.3-8.2 ALBUMIN (test code = 8954138520) 4.5 g/dL 3.5-5.0 ALK PHOS (test code = 6637735413) 58 U/L 34-122 ALTv (test code = 1742-6) 19 U/L 5-35 AST(SGOT) (test code = 7713803471) 20 U/L 13-40 eGFR (test code = 6466473602) 103.9 mL/min/1.73m2 ANDRES (test code = ANDRES) Association of Glomerular Filtration Rate (GFR) and Staging of Kidney Disease* + + +- +| GFR (mL/min/1.73 m2) ?| With Kidney Damage ?| ?Without Kidney Damage+ ------+ ----+ ------+| ?>90 ?| ?Stage one ?| ? Normal ?+ -+ + -+| ?60-89 ?| ?Stage two ?| ? Decreased GFR ? + + +- +| ?30-59 ?| ?Stage three ?| ? Stage three ? + + +- +| ?15-29 ?| ?Stage four ? | ? Stage four ?+ -+ + -+| ?<15 (or dialysis) ? ?| ?Stage five ? | ? Stage five ?+ -+ + -+ *Each stage assumes the associated GFR level has been in effect for at least three months. ?Stages 1 to 5, with or without kidney disease, indicate chronic kidney disease. Notes: Determination of stages one and two (with eGFR >59mL/min/1.73 m2) requires estimation of kidney damage for at least three months as defined by structural or functional abnormalities of the kidney, manifested by either:Pathological abnormalities or Markers of kidney damage (including abnormalities in the composition of the blood or urine or abnormalities in imaging tests). [facility] WITH [id number] 21:55:56* Test Item Value Reference Range Interpretation Comme nts WBC (test code = 6690-2) 6.15 See_Comment [Automated Percelloa ge] The system which generated this result transmitted reference range: 4.30 - 11.10 10*3/?L. The reference range was not used to interpret this result as normal/abnormal. RBC (test code = 789-8) 4.58 See_Comment [Automated Percelloa ge] The system which generated this result transmitted reference range: 3.93 - 5.25 10*6/?L. The reference range was not used to interpret this result as normal/abnormal. HGB (test code = 718-7) 12.8 g/dL 11.6-15.0 HCT (test code = 4544-3) 38.7 % 35.7-45.2 MCV (test code = 787-2) 84.5 fL 80.6-95.5 MCH (test code = 785-6) 27.9 pg 25.9-32.8 MCHC (test code = 786-4) 33.1 g/dL 31.6-35.1 RDW-SD (test code = 56680-4) 39.9 fL 39.0-49.9 RDW-CV (test code = 788-0) 13.1 % 12.0-15.5 PLT (test code = 777-3) 257 See_Comment [Automated Perc[place] ge] The system which generated this result transmitted reference range: 166 - 358 10*3/?L. The reference range was not used to interpret this result as normal/abnormal. MPV (test code = 09093-7) 11.5 fL 9.5-12.9 NRBC/100 WBC (test code = 4790070120) 0.0 See_Comment [Automated me ssage] The system which generated this result transmitted reference range: 0.0 - 10.0 /100 WBCs. The reference range was not used to interpret this result as normal/abnormal. NRBC x10^3 (test code = 7822350322) See_Comment [Automated me ssage] The system which generated this result transmitted reference range: 10*3/?L. The reference range was not used to interpret this result as normal/abnormal. GRAN MAT (NEUT) % (test code = 770-8) 56.4 % IMM GRAN % (test code = 0917732567) 0.20 % LYMPH % (test code = 736-9) 30.9 % MONO % (test code = 5905-5) 9.3 % EOS % (test code = 713-8) 2.4 % BASO % (test code = 706-2) 0.8 % GRAN MAT x10^3(ANC) (test code = 7544656835) 3.47 10*3/uL 1.88-7.09 IMM GRAN x10^3 (test code = 0932828372) 0.00-0.06 LYMPH x10^3 (test code = 731-0) 1.90 10*3/uL 1.32-3.29 MONO x10^3 (test code = 742-7) 0.57 10*3/uL 0.33-0.92 EOS x10^3 (test code = 711-2) 0.15 10*3/uL 0.03-0.39 BASO x10^3 (test code = 704-7) 0.05 10*3/uL 0.01-0.07 [facility] WITH [id number] 21:55:56* Test Item Value Reference Range Interpretation Comme nts WBC (test code = 6690-2) 6.15 See_Comment [Automated messa ge] The system which generated this result transmitted reference range: 4.30 - 11.10 10*3/?L. The reference range was not used to interpret this result as normal/abnormal. RBC (test code = 789-8) 4.58 See_Comment [Automated messa ge] The system which generated this result transmitted reference range: 3.93 - 5.25 10*6/?L. The reference range was not used to interpret this result as normal/abnormal. HGB (test code = 718-7) 12.8 g/dL 11.6-15.0 HCT (test code = 4544-3) 38.7 % 35.7-45.2 MCV (test code = 787-2) 84.5 fL 80.6-95.5 MCH (test code = 785-6) 27.9 pg 25.9-32.8 MCHC (test code = 786-4) 33.1 g/dL 31.6-35.1 RDW-SD (test code = 37050-1) 39.9 fL 39.0-49.9 RDW-CV (test code = 788-0) 13.1 % 12.0-15.5 PLT (test code = 777-3) 257 See_Comment [Automated messa ge] The system which generated this result transmitted reference range: 166 - 358 10*3/?L. The reference range was not used to interpret this result as normal/abnormal. MPV (test code = 98054-6) 11.5 fL 9.5-12.9 NRBC/100 WBC (test code = 1942698409) 0.0 See_Comment [Automated me ssage] The system which generated this result transmitted reference range: 0.0 - 10.0 /100 WBCs. The reference range was not used to interpret this result as normal/abnormal. NRBC x10^3 (test code = 0443864654) See_Comment [Automated me ssage] The system which generated this result transmitted reference range: 10*3/?L. The reference range was not used to interpret this result as normal/abnormal. GRAN MAT (NEUT) % (test code = 770-8) 56.4 % IMM GRAN % (test code = 9405628740) 0.20 % LYMPH % (test code = 736-9) 30.9 % MONO % (test code = 5905-5) 9.3 % EOS % (test code = 713-8) 2.4 % BASO % (test code = 706-2) 0.8 % GRAN MAT x10^3(ANC) (test code = 2837382852) 3.47 10*3/uL 1.88-7.09 IMM GRAN x10^3 (test code = 2169722173) 0.00-0.06 LYMPH x10^3 (test code = 731-0) 1.90 10*3/uL 1.32-3.29 MONO x10^3 (test code = 742-7) 0.57 10*3/uL 0.33-0.92 EOS x10^3 (test code = 711-2) 0.15 10*3/uL 0.03-0.39 BASO x10^3 (test code = 704-7) 0.05 10*3/uL 0.01-0.07 [facility] URINALYSIS W/O SPECIFIC [id number] 21:23:00* Test Item Value Reference Range Interpretation Comme nts POCT PH U (test code = 3254) 6 mg/dl 5-8 POCT U LEUK EST (test code = 3263) negative Negative - Negative POCT U NIT (test code = 3262) negative Negative - Negati ve POCT U PROT (test code = 3259) negative Negative - Negat elina POCT U GLU (test code = 3256) negative Negative - Negati ve POCT U KETONE (test code = 3258) negative Negative - Neg ative POCT U BLD (test code = 3257) negative Negative - Negati ve [facility] URINALYSIS W/O SPECIFIC [id number] 21:23:00* Test Item Value Reference Range Interpretation Comme nts POCT PH U (test code = 3254) 6 mg/dl 5-8 POCT U LEUK EST (test code = 3263) negative Negative - Negative POCT U NIT (test code = 3262) negative Negative - Negati ve POCT U PROT (test code = 3259) negative Negative - Negat elina POCT U GLU (test code = 3256) negative Negative - Negati ve POCT U KETONE (test code = 3258) negative Negative - Neg ative POCT U BLD (test code = 3257) negative Negative - Negati ve [facility] Notes Date/Time Note Provider Source 2024-01-11 14:50:17 2817-19-34L62:50:17F ormatting of this note is different from the original.Chief ComplaintPatient presents withPhysical 67832-4Fhyxn UgtlYU7770-39-90L11:50:36Nurse NoteTXT1.2.840.103748.1.13.131.2.7.2.7 27235|[id number] for patient skro60664-1Rvtpb NoteLNNARRATIVEFormatted C-CDA narrative [facility] [place], [place] [id number] 116-48-07E36:50:361.2.840.071982.1.72. 3.15|1.2.840.160196.1.13.131.2.7.2.727 [id number] [facility] 2023-11-18 13:59:49 7068-21-27U71:59:49F ormatting of this note is different from the original.Chief ComplaintPatient presents withNew PatientEstablish CareWeight and depressionPaula MATTHEW OlivaN 89668-7Xbxlb MuawVF0676-51-04B40:00:10Nurse NoteTXT1.2.840.235136.1.13.131.2.7.2.7 83802|[id number] for patient xsyh28037-4Tzuvl NoteLNNARRATIVEFormatted C-CDA narrative [facility] [place], [place] [id number] 792-09-81J18:00:101.2.840.536809.1.72. 3.15|1.2.840.671705.1.13.131.2.7.2.727 [id number] [facility]"
[2024-01-15] MEDS ORDERED: ALBUTEROL 2.5 MG/3 ML NEB SOL ONE (09:16)
[2024-01-15 09:33] LABS: Specific Gravity 1.013 (1.005-1.030)
[2024-01-15 09:42] LABS: SARS-CoV-2 Antigen CONTROL BLUE LINE VIS/BG OK; SARS-CoV-2 Antigen Rapid Res Negative (Negative)
--- NOTE | 2024-01-15 11:41 | RAD REPORT ---
EXAM DESCRIPTION: Jesu Single View01/15/2024 10:14 am CLINICAL HISTORY: CHEST PAIN COMPARISON: Chest Pa And Lat (2 Views) dated 02/24/2019 TECHNIQUE: Portable AP view of the chest. FINDINGS: The lungs are clear. No pneumothorax or effusion. The cardiomediastinal contours are unre markable. IMPRESSION: No acute cardiopulmonary process.
--- NOTE | 2024-01-15 11:45 | EDPHYS ---
Physician Documentation [facility] Name: Dominga Rooney Age: 23 yrs Sex: Female : 2000 Arrival Date: 01/15/2024 Time: 08:56 Bed 19 Private MD: ED Physician Ciro Landrum HPI: 01/14 09:10 This 23 yrs old Black Female presents to ER via Unassigned with complaints of Flu sb4 Symptoms. 09:10 Patient states that her family members tested positive for COVID a few days ago. She sb4 started experiencing sore throat, cough, shortness of breath yesterday. States that she had a negative home test last night. Denies any fever or chest pain. No GI symptoms. She is otherwise healthy, no underlying heart or lung issues. 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 - Infectious Disease History:: Denies. - Social history:: Smoking status: Patient denies any tobacco usage or history of. ROS: 09:10 Constitutional: Negative for fever, chills, and weight loss, sb4 09:10 ENT: Positive for sore throat, 09:10 Respiratory: Positive for shortness of breath, 09:10 Respiratory: Positive for cough, 09:10 All other systems are negative, Exam: 09:10 Head/Face: Normocephalic, atraumatic. Eyes: Extra-ocular motions intact. Periorbital sb4 areas with no swelling, redness, or edema. ENT: Mucous membranes moist. 09:10 Cardiovascular: Regular rate and rhythm with a normal S1 and S2. Respiratory: Lungs have equal breath sounds bilaterally, clear to auscultation and percussion. No rales, rhonchi or wheezes noted. No increased work of breathing, no retractions or nasal flaring. 09:10 Constitutional: The patient appears in no acute distress, alert, awake, obese, 09:10 ENT: Posterior pharynx: Airway: normal, no evidence of obstruction, patent, Tonsils: are normal in appearance, Uvula: normal, midline, swelling, is not appreciated, Vital Signs: 09:10 BP 146 / 102; Pulse 100; Resp 19 S; Temp 97.8(TE); Pulse Ox 99% on R/A; Weight 146.06 kc6 kg (R); Height 5 ft. 6 in. (R); Pain 0/10; 10:57 BP 141 / 69; Pulse 100; Resp 18; Pulse Ox 99% ; Pain 7/10; nj1 12:00 BP 125 / 81; Pulse 94; Resp 17; Pulse Ox 100% on R/A; nj1 09:10 Body Mass Index 51.97 (146.06 kg, 167.64 cm) kc6 09:10 Pain Scale: Adult kc6 10:57 Pain Scale: Adult nj1 MDM: 09:04 Patient medically screened. sb4 10:34 Independent interpretation of the following test(s) in the Emergency Department X-Ray: sb4 My interpretation is my interpretation of the chest xray images are no evidence of pneumonia. 11:17 Awaiting: X-ray results. sb4 11:17 Data reviewed: vital signs, nurses notes, lab test result(s), radiologic studies, and sb4 as a result, I will discharge patient. Counseling: I had a detailed discussion with the patient and/or guardian regarding the historical points, exam findings, and any diagnostic results supporting the discharge/admit diagnosis, lab results, radiology results, to return to the emergency department if symptoms worsen or persist or if there are any questions or concerns that arise at home. 01/14 09:10 Order name: SARS RAPID; Complete Time: 09:42 sb4 01/14 09:10 Order name: Flu; Complete Time: 09:53 sb4 01/14 09:10 Order name: Test, Urine; Complete Time: 09:33 sb4 01/14 09:10 Order name: Chest Single View XRAY; Complete Time: 11:41 sb4 Administered Medications: 09:24 Drug: Albuterol Inhalation 2.5 mg Inhalation once Route: Inhalation; kc6 12:02 Follow up: Response: No adverse reaction nj1 Disposition: 14:38 Co-signature as Attending Physician, Ciro Landrum MD I reviewed the patient's care rt provided by the Advanced Practice Provider and agree with the diagnosis and treatment plan. Disposition Summary: 01/15/24 11:44 Discharge Ordered Notes: Location: Home sb4 Problem: new sb4 Symptoms: have improved sb4 Condition: Stable sb4 Diagnosis - Viral infection, unspecified sb4 Followup: sb4 - With: Emergency Department - When: As needed - Reason: Trouble breathing, Worsening of condition Discharge Instructions: - Discharge Summary Sheet sb4 - 10 Things You Can Do to Manage Your COVID-19 Symptoms at Home - [facility] (02/07/2021) sb4 Forms: - Work release form sb4 - Patient Portal Instructions sb4 - Leadership Thank You Letter sb4 Signatures: Dispatcher [employer] EDTammy Casillas, RN RN kc6 Julianna Burnham PA-C PAChristin sb4 Ciro Landrum MD MD rt Pam Quezada RN nj1 Corrections: (The following items were deleted from the chart) 09:11 09:11 SARS-COV-2 Antigen Rapid+I.LAB.BRZ ordered. EDMS EDMS 09:11 09:11 Influenza Screen (A \T\ B)+BA.LAB.BRZ ordered. EDMS EDMS 09:11 09:11 Test, Urine+UC.LAB.BRZ ordered. EDMS EDMS 09:11 09:11 Chest Single View+RAD.RAD.BRZ ordered. EDMS EDMS
--- NOTE | 2024-01-15 11:45 | ER ---
Nurse's Notes [facility] Name: Dominga Rooney Age: 23 yrs Sex: Female : 2000 Arrival Date: 01/15/2024 Time: 08:56 Bed 19 Private MD: Diagnosis: Viral infection, unspecified Presentation: 01/14 09:10 Chief complaint: Patient states: mom an grandma tested positive for covid. she tested kc6 negative yesterday but has a headache, sore throat, and trouble breathing. Coronavirus screen: At this time, the client does not indicate any symptoms associated with coronavirus-19. Ebola Screen: No symptoms or risks identified at this time. Initial Sepsis Screen: Does the patient meet any 2 criteria? No. Patient's initial sepsis screen is negative. Does the patient have a suspected source of infection? No. Patient's initial sepsis screen is negative. Risk Assessment: Do you want to hurt yourself or someone else? Patient reports no desire to harm self or others. Onset of symptoms was January 15, 2024. 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 - Infectious Disease History:: Denies. - Social history:: Smoking status: Patient denies any tobacco usage or history of. Screenin:13 [facility] ED Fall Risk Assessment (Adult) History of falling in the last 3 months, [facility] including since admission No falls in past 3 months (0 pts) Confusion or Disorientation No (0 pts) Intoxicated or Sedated No (0 pts) Impaired Gait No (0 pts) Mobility Assist Device Used No (0 pt) Altered Elimination No (0 pt) Score/Fall Risk Level 0 - 2 = Low Risk. Abuse screen: Denies threats or abuse. Denies injuries from another. Nutritional screening: No deficits noted. Tuberculosis screening: No symptoms or risk factors identified. Assessment: 09:25 General: Appears in no apparent distress. comfortable, obese, well groomed, well kc6 developed, Behavior is calm, cooperative, appropriate for age. Pain: Denies pain. Neuro: Level of Consciousness is awake, alert, obeys commands, Oriented to person, place, time, situation, Appropriate for age Reports headache. Cardiovascular: Capillary refill < 3 seconds. Respiratory: Reports shortness of breath cough that is Airway is patent Trachea midline Respiratory effort is even, unlabored, Respiratory pattern is regular, symmetrical. GI: No signs and/or symptoms were reported involving the gastrointestinal system. : No signs and/or symptoms were reported regarding the genitourinary system. EENT: Reports difficulty swallowing. Derm: No signs and/or symptoms reported regarding the dermatologic system. Skin is intact, is healthy with good turgor, Skin is pink, warm \T\ dry. Musculoskeletal: No signs and/or symptoms reported regarding the musculoskeletal system. Circulation, motion, and sensation intact. Capillary refill < 3 seconds, Range of motion: intact in all extremities. 10:57 Reassessment: Patient appears in no apparent distress at this time. Patient and/or nj1 family updated on plan of care and expected duration. Pain level reassessed. Patient is alert, oriented x 3, equal unlabored respirations, skin warm/dry/pink. 10:57 EENT: Reports sore throat. nj1 12:01 Reassessment: Patient appears in no apparent distress at this time. Patient is alert, nj1 oriented x 3, equal unlabored respirations, skin warm/dry/pink. Vital Signs: 09:10 BP 146 / 102; Pulse 100; Resp 19 S; Temp 97.8(TE); Pulse Ox 99% on R/A; Weight 146.06 kc6 kg (R); Height 5 ft. 6 in. (R); Pain 0/10; 10:57 BP 141 / 69; Pulse 100; Resp 18; Pulse Ox 99% ; Pain 7/10; nj1 12:00 BP 125 / 81; Pulse 94; Resp 17; Pulse Ox 100% on R/A; nj1 09:10 Body Mass Index 51.97 (146.06 kg, 167.64 cm) [facility] 09:10 Pain Scale: Adult [facility] 10:57 Pain Scale: Adult [facility] ED Course: 09:03 Patient arrived in ED. mg5 09:03 Julianna Burnham PA-C is PHCP. sb4 09:03 Ciro Landrum MD is Attending Physician. sb4 09:05 Tammy Segura, RN is Primary Nurse. kc6 09:12 Triage completed. kc6 09:12 Arm band placed on. kc6 09:12 Patient has correct armband on for positive identification. Bed in low position. Call kc6 light in reach. Side rails up X 1. Pulse ox on. NIBP on. Pillow given. 09:24 Test, Urine Sent. kc6 09:24 Flu Sent. kc6 09:24 SARS RAPID Sent. kc6 09:25 Initial Neb Treatment Given as ordered Patient was instructed and evaluated on kc6 procedure. 10:16 Chest Single View XRAY In Process Unspecified. EDMS 12:01 No provider procedures requiring assistance completed. Patient did not have IV access nj1 during this emergency room visit. 12:02 Provided Education on: discharge instructions. nj1 Administered Medications: 09:24 Drug: Albuterol Inhalation 2.5 mg Inhalation once Route: Inhalation; kc6 12:02 Follow up: Response: No adverse reaction nj1 Medication: 12:02 VIS not applicable for this client. nj1 Outcome: 11:44 Discharge ordered by . sb4 12:01 Discharged to home ambulatory, nj1 12:01 Condition: stable 12:01 Discharge instructions given to patient, Instructed on discharge instructions, follow up and referral plans. Demonstrated understanding of instructions, follow-up care, 12:02 Patient left the ED. nj1 Signatures: Dispatcher [employer] EDMS Tammy Segura, RN RN kc6 Julianna Burnham PA-C PA-C sb4 Pam Quezada RN RN nj1 Leonie Jackson mg5 Corrections: (The following items were deleted from the chart) 10:58 10:57 Reassessment: Patient appears in no apparent distress at this time. Patient nj1 and/or family updated on plan of care and expected duration. Pain level reassessed. Patient is alert, oriented x 3, equal unlabored respirations, skin warm/dry/pink. nj1
[2024-01-15 12:24] VITALS: BP 125/81; TEMP 97.8; O2SAT 100
== END 2024-01-15 12:02 | disposition home or self-care (01) ==
LOC: ER 08:56
DX: B34.9 Viral infection, unspecified (principal); Z11.52 Encounter for screening for COVID-19
CPT/HCPCS: 36415; 81025; 87804 ×2; 71045; 87811; J7613; 99284

== ENCOUNTER 2024-09-28 00:50 | Emergency (ER) | payer OTHER, SELFPAY ==
--- OUTSIDE RECORDS SUMMARY | 2024-09-28 00:54 | XMS REPORT | Continuity of Care Document ---
Author Name Unknown Address [address] [facility] [address] [place] [address] [facility] thconnect Address [address] [facility] [address] [place] [address] Care Team Providers Care Trestleman Name Role Phone Donna Smith Primary Care Physician [phone] SANTOS MADSEN Attending Clinician Unavailable [id number] Attending Clinician Unavailable LATISHA MCKENNA Attending Clinician Unavailab le LAB47 Attending Clinician Unavailable CATE VICKERS Attending Clinician Unavailable WALESKA BOLANOS Attending Clinician Unavailabl sal HDZ MD Attending Clinician Unavailab SANTIAGO He Attending Clinician Unavailable CATALINA MOLINA Attending Clinician Unavail able ANDREW DUFFY Attending Clinician Unavailabl e LAB90 Attending Clinician Unavailable LINDA MINER Attending Clinician Unavaila FERN Nguyen Attending Clinician Unavailable CHUCKY CATALAN Attending Clinician Unavailable Kiara Vora NP Attending Clinician [phone] KIARA VORA Attending Clinician Unavailab le 2, [facility] Attending Clinician Unavailable PER SANDERS Attending Clinician Unavaila PER Lopez Attending Clinician UnavailTamy Nova MD Attending Clinician +- [phone] SANTA LINK Attending Clinician Unavailable Santa Link MD Attending Clinician [phone] Doctor Unassigned, [place] Attending Clinician U navailable LUBA GAMBLE Attending Clinician Unavailable Luba Cespedes S Attending Clinician ROMEL FIGUEROA Attending Clinician Romel Fitzgerald MD Attending Clinician SIMÓN AGUILERA Attending Clinician Unavailable Payers Payer Name Policy Type Policy Number Effective Date Expirati on Date Source [place] [address] [employer] 94 9 [id number] 2024 00:00:00 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, predominan tly inattentiv e type Disease Active 3-14 00:00: 00 [facility] Bipolar disorder Bipolar disorder Disease Active 7-19 00:00: 00 [facility] No known active problems No known active problems Disease [facility] Current mild episode of major depressive disorder without prior episode Current mild episode of major depressive disorder without prior episode Disease Active Jacqui Sedorothyold - Externa l Morbid obesity Morbid obesity Disease Active Jacqui Sedorothyold - Externa l Depression Depression Disease Active Deepak Mcdonaldold - Externa l Anxiety Anxiety Disease Active Jacqui Seybold - Externa l Obesity Obesity Disease Active Jacqui Seybold - Externa l Allergies, Adverse Reactions, Alerts Allergy Name Allergy Type Status Severity Reaction(s) Onset Date Inactive Date Treating Clinician Comments Source NO KNOWN ALLERGIE S Drug Class Active [facility] Social History Social Habit Start Date Stop Date Quantity Comments Source Gender identity [facility] Sexual orientation Deepak aparicio Sedorothysalome - External ASSERTION Not Jacqui Jordan - External History of Occupation Jacqui Ortega - External Alcoholic beverage intake 2024-07-06 00:00:00 2024-07-06 00:00:00 Current drinker of alcohol (finding) Jacqui Ortega - External History of Social function 2023-11-18 00:00:00 2023-11-18 00:00:00 Jacqui Ortega - External Education 2023-11-18 00:00:00 2023-11-18 00:00:00 16 Jacqui Ortega - External Alcohol Comment 2023-11-18 00:00:00 2023-11-18 00:00:00 occasionally Jacqui Ortega - External Tobacco use and exposure 2023-11-17 00:00:00 2023-11-17 00:00:00 Smokeless tobacco non-user Jacqui Ortega - External Sex 2023-08-25 09:51:47 2023-08-25 09:51:47 Female (finding) Jacqui Ortega - External Alcohol intake 2023-06-01 00:00:00 2023-06-01 00:00:00 Lifetime non-drinker (finding) [facility] Exposure to SARS-CoV-2 (event) 2022-11-15 00:00:00 2022-11-25 15:02:00 Not sure [facility] Sex assigned at 2001 00:00:00 2000 00:00:00 Jacqui Ortega - External Smoking Status Start Date Stop Date Source Unknown if [facility] smoked [facility] Never smoked tobacco Jacqui Ortega Medications Ordered Medication Name Filled Medication Name Start Date Stop Date Current Medication? Ordering Clinician Indication Dosage Frequency Signature (SIG) Comments Components Source Bupropion HCL XL 150 MG OR TB24 08-29 00:00: 00 Yes [id number] 150mg QD Take 1 tablet (150 mg total) by mouth daily. Jacqui parker Topiramate 100 MG oral Tablet 08-29 00:00: 00 Yes [id number] 100mg Q.5D Take 1 tablet (100 mg total) by mouth 2 times daily. Jacqui parker Tizanidine HCl 2 MG oral Tablet 08-29 00:00: 00 Yes [id number] 2mg QD Take 1 tablet (2 mg total) by mouth daily as needed for muscle spasms. Jacqui parker Topiramate 100 MG oral Tablet 07-27 00:00: 00 08-29 00:00 :00 No [id number] 104 100mg Q.5D Take 1 tablet by mouth twice daily Jacqui parker Amoxicillin (AMOXIL) 500 MG oral Capsule 2023-07 2-13 00:00: 00 08-29 00:00 :00 No [id number] 500mg [id number] 3D Take 1 capsule (500 mg total) by mouth 3 times daily. Jacqui parker Metronidazo le (Flagyl) 500 MG oral Tablet 2023-07 0-31 00:00: 00 05-29 00:00 :00 No [id number] 500mg Q.5D Take 1 tablet (500 mg total) by mouth 2 times daily for 7 days. Jacqui parker Tizanidine HCl 2 MG oral Tablet 2023-07 00:00: 00 08-29 00:00 :00 No [id number] 2mg Take 1 tablet (2 mg total) by mouth every 12 hours as needed. Jacqui parker Tramadol HCl (ULTRAM) 50 MG oral Tablet 2023-07 00:00: 00 08-29 00:00 :00 No [id number] 50mg Take 1 tablet (50 mg total) by mouth every 12 hours as needed for pain. Jacqui parker Topiramate 100 MG oral Tablet 2023-07 0-02 00:00: 00 Yes [id number] 104 100mg Q.5D Take 1 tablet (100 mg total) by mouth 2 times daily. Jacqui parker Topiramate 25 MG oral Tablet 6-18 00:00: 00 Yes [id number] 104 25mg Take 1 tablet (25 mg total) by mouth 2 times daily. Jacqui parker Bupropion HCL XL 150 MG OR TB24 4-25 00:00: 00 01-10 00:00 :00 No [id number] 150mg Take 1 tablet (150 mg total) by mouth every morning. Jacqui parker Topiramate 25 MG oral Tablet 11-17 00:00: 00 01-10 00:00 :00 No [id number] 104 25mg Take 1 tablet (25 mg total) by mouth daily. Jacqui parker Aripiprazol e 5 MG oral Tablet 2022-07 00:00: 00 11-17 00:00 :00 No 5mg Take 1 tablet (5 mg total) by mouth daily. Jacqui parker semaglutide , weight loss, (WEGOVY) 0.25 mg/0.5 mL PnIj SC injection 2022-07 00:00: 00 07-03 05:59 :00 No [id number] .25mg inject 0.25 mg under the skin weekly for 30 days. 1st dose [facility] semaglutide , weight loss, (WEGOVY) 0.5 mg/0.5 mL PnIj SC injection 2022-07 00:00: 00 07-03 05:59 :00 No [id number] .5mg inject 0.5 mg under the skin weekly for 30 days. 2nd dose [facility] semaglutide , weight loss, (WEGOVY) 1 mg/0.5 mL PnIj SC injection 2022-07 00:00: 00 07-03 05:59 :00 No [id number] 1mg inject 1 mg under the skin weekly for 30 days. 3rd dose [facility] (BLOOD PRESSURE CUFF) [facility] 04-06 00:00: 00 Yes [id number] Blood pressure check twice a day and as needed. [facility] Bupropion HCL XL 300 MG OR TB24 04-06 00:00: 00 11-17 00:00 :00 No 300mg Take 1 tablet (300 mg total) by mouth daily. Jacqui parker ARIPiprazol e (ABILIFY) 2 mg tablet 04-06 00:00: 00 06-02 00:00 :00 No [id number] 2mg Take 1 tablet by mouth in the morning. [facility] naltrexone 50 mg tablet 01-04 00:00: 00 06-01 00:00 :00 No [id number] 50mg Take 1 tablet by mouth in the morning. [facility] buPROPion XL 150 mg 24 hr tablet 01-04 00:00: 00 04-06 00:00 :00 No [id number] 150mg Take 1 tablet by mouth in the morning. [facility] cariprazine (VRAYLAR) 1.5 mg Cap 01-01 15:20: 51 01-01 00:00 :00 No Vraylar 1.5 mg capsule Take 1 capsule every day by oral route at bedtime for 30 days. [facility] metroNIDAZO LE 500 mg tablet 12-28 00:00: 00 01-05 04:59 :00 No [id number] 500mg Take 1 tablet by mouth every 12 (twelve) hours for 7 days. [facility] terconazole 80 mg vaginal suppository 5-05 00:00: 00 04-06 00:00 :00 No [id number] 80mg Insert 1 Suppositor y into vagina at bedtime. [facility] cariprazine (VRAYLAR) 1.5 mg Cap 5-03 15:34: 08 Yes Vraylar 1.5 mg capsule Take 1 capsule every day by oral route at bedtime for 30 days. [facility] Nitrofurant oin&Nit. Macrocryst 100 mg capsule 2-05 00:00: 00 01-01 00:00 :00 No [id number] 100mg Take 1 capsule by mouth in the morning and 1 capsule in the evening. [facility] No known medications 2020-07 10:02: 56 No [facility] cariprazine (VRAYLAR) 1.5 mg Cap 2020-07 10:02: 11 Yes Vraylar 1.5 mg capsule Take 1 capsule every day by oral route at bedtime for 30 days. [facility] methylPREDN ISolone (MEDROL, HANNY,) 4 mg tablets 2020-07 00:00: 00 01-01 00:00 :00 No [id number] 84mg Take 21 tablets by mouth SEE-INSTRU CTIONS. follow package directions [facility] busPIRone 15 mg tablet 2020-07 0- 00:00: 00 01-01 00:00 :00 No [facility] Immunizations Ordered Immunization Name Filled Immunization Name Date Status Comments Source Influenza Virus Vaccine Quad IM, Preserv and ABX Free 6 MO-64 YRS (FLUCELVAX) Unknown Completed [facility] TDAP Unknown Completed [facility] HPV9 Unknown Completed [facility] DTAP Unknown Completed [facility] Hep B, Adol or Pedi Dosage Unknown Completed [facility] Heamophilus Influenza B Unknown Completed [facility] IPV Unknown Completed [facility] MMR Unknown Completed [facility] Pneumococcal 7 Conjugate, PCV7 (Prevnar7) Unknown Completed [facility] Varicella (varivax)(chicken pox) Unknown Completed [facility] SARS-COV-2 COVID-19 VACCINE - (MODERNA) Unknown Completed [facility] DTaP, Unspecified Formulation Unknown Completed [facility] Meningococcal Polysaccharide (groups A, C, Y and W-135) conjugate vaccine (MCV4P) Unknown Completed [facility] Meningococcal B, OMV Unknown Completed [facility] HPV Unknown Completed [facility] HEPATITIS A Unknown Completed [facility] Influenza Virus Vaccine Quad IM, Preserv and ABX Free 6 MO-64 YRS (FLUCELVAX) Unknown Completed [facility] TDAP Unknown Completed [facility] HPV9 Unknown Completed [facility] DTAP Unknown Completed [facility] Hep B, Adol or Pedi Dosage Unknown Completed [facility] Heamophilus Influenza B Unknown Completed [facility] IPV Unknown Completed [facility] MMR Unknown Completed [facility] Pneumococcal 7 Conjugate, PCV7 (Prevnar7) Unknown Completed [facility] Varicella (varivax)(chicken pox) Unknown Completed [facility] SARS-COV-2 COVID-19 VACCINE - (MODERNA) Unknown Completed [facility] DTaP, Unspecified Formulation Unknown Completed [facility] Meningococcal Polysaccharide (groups A, C, Y and W-135) conjugate vaccine (MCV4P) Unknown Completed [facility] Meningococcal B, OMV Unknown Completed [facility] HPV Unknown Completed [facility] HEPATITIS A Unknown Completed [facility] DTaP Unknown Completed Jacqui helton - External DTaP Unspecified Unknown Completed Jin Ortega - External Influenza, Injectable, Mdck, Preservative Free, Quadrivalent Unknown Completed Jacqui Ortega HEPATITIS A- PEDI/ADOL Unknown Completed Jacqui Ortega - External Hepatitis B, Adolescent Or Pediatric Unknown Completed Jacqui Ortega - External HIB- Haemophilus Influenzae Type B Unknown Completed Jacqui helton - External HPV 4 (Human Papillomavirus) Unknown Completed Jacqui wilcox - External HPV 9 (Human Papillomavirus) Unknown Completed Jacqui wilcox - External Meningococcal Vaccine- Conjugate(Menactra) Unknown Completed Jacqui soliman - External Bexsero (Meningococcal Group B) Unknown Completed Jacqui Gonzales External MMR- Measles, Mumps, Rubella Unknown Completed Jacqui Gonzales External Pneumococcal Vaccine, Conjugate 7 Unknown Completed Jacqui Ortega - External IPV- Inactivated Polio [facility]ine [facility] T[facility]- (Boostrix, Adacel) Unknown Completed [facility] - External Varicella Vaccine Unknown Completed Kris reyes Seybold - External DTaP Unknown Completed Jacquij luis Dietz bold - External DTaP Unspecified Unknown Completed [facility] ybold - External Influenza, Injectable, Mdck, Preservative Free, Quadrivalent Unknown Completed [facility] - External HEPATITIS A- PEDI/ADOL [facility], [facility] H[facility]- Haemophilus Influenzae Type B Unknown Completed Jacqui J Luis helton - External HPV 4 (Human Papillomavirus) Unknown Completed [facility] - External HPV 9 (Human Papillomavirus) Unknown Completed [facility] - External Meningococcal Vaccine- Conjugate(Menactra) Unknown Completed [facility] eybold - External Bexsero (Meningococcal Group B) Unknown [facility] MMR- Measles, Mumps, Rubella [facility] Pneumococcal [facility]ine, Conjugate 7 [facility]- Inactivated Polio Vaccine Unknown Completed [facility] External Tdap- (Boostrix, Adacel) Unknown Completed [facility] External Varicella Vaccine Unknown Completed Kris reyes Seybold - External DTaP Unknown Completed Jacquij luis Dietz bold - External DTaP Unspecified Unknown Completed [facility] ybold - External Influenza, Injectable, Mdck, Preservative Free, Quadrivalent [facility]- [facility]I/ADOL [facility], Adolescent Or Pediatric [facility] HIB- Haemophilus Influenzae Type B Unknown Completed Jacquij luis helton - External HPV 4 (Human Papillomavirus) Unknown Completed [facility] - External HPV 9 (Human Papillomavirus) Unknown Completed [facility] - External Meningococcal Vaccine- Conjugate(Menactra) Unknown Completed [facility] eybold - External Bexsero (Meningococcal Group B) Unknown [facility] MMR- Measles, Mumps, Rubella Unknown [facility] Pneumococcal Vaccine, Conjugate 7 Unknown [facility] IPV- Inactivated Polio Vaccine Unknown Completed Jacqui Seybold - External Tdap- (Boostrix, Adacel) Unknown [facility] Varicella Vaccine Unknown Completed Kris reyes Seybold - External DTaP Unknown Completed Jacquij luis Dietz bold - External DTaP Unspecified Unknown Completed Jin dietz Seybold - External Influenza, Injectable, Mdck, Preservative Free, Quadrivalent Unknown Completed [facility] ybold - External HEPATITIS A- PEDI/ADOL Unknown [facility] B, Adolescent Or Pediatric [facility] HIB- Haemophilus Influenzae Type B Unknown Completed Jacquij luis helton - External HPV 4 (Human Papillomavirus) Unknown Completed [facility] - External HPV 9 (Human Papillomavirus) Unknown Completed Jacqui [facility] ld - External Meningococcal Vaccine- Conjugate(Menactra) Unknown Completed [facility] eybold - External Bexsero (Meningococcal Group B) Unknown [facility] MMR- Measles, Mumps, Rubella Unknown [facility] Pneum[facility]ine, Conjugate 7 [facility] IPV- Inactivated Polio Vaccine [facility] Tdap- (Boostrix, Adacel) Unknown Completed [facility] External Varicella Vaccine Unknown Completed Kris reyes Seybold - External DTaP Unknown Completed Jacqui helton - External DTaP Unspecified Unknown Completed Jin dietz Seold - External Influenza, Injectable, Mdck, Preservative Free, Quadrivalent Unknown Completed Jacqui ybold - External HEPATITIS A- PEDI/ADOL Unknown Completed [facility] External Hepatitis B, Adolescent Or Pediatric Unknown [facility] H[facility]- Haemophilus Influenzae Type B Unknown Completed Jacquij luis Dietz bold - External HPV 4 (Human Papillomavirus) Unknown Completed [facility] - External HPV 9 (Human Papillomavirus) Unknown Completed [facility] - External Meningococcal Vaccine- Conjugate(Menactra) Unknown Completed [facility] eybold - External Bexsero (Meningococcal Group B) Unknown [facility] MMR- Measles, Mumps, Rubella Unknown [facility] Pneumococcal Vaccine, Conjugate 7 Unknown [facility] IPV- Inactivated Polio Vaccine Unknown [facility] Tdap- (Boostrix, Adacel) Unknown Completed Jacqui Seybold - External Varicella Vaccine Unknown Completed Kris florey Seybold - External DTaP Unknown Completed Jacqui Dietz bold - External DTaP Unspecified Unknown Completed [facility] j luis Seybold - External Influenza, Injectable, Mdck, Preservative Free, Quadrivalent Unknown Completed [facility] ybold - External HEPATITIS A- PEDI/ADOL Unknown [facility] B, Adolescent Or Pediatric Unknown [facility] HIB- Haemophilus Influenzae Type B Unknown Completed Jacquij luis Dietz bold - External HPV 4 (Human Papillomavirus) Unknown Completed [facility] - External HPV 9 (Human Papillomavirus) Unknown Completed [facility] - External Meningococcal Vaccine- Conjugate(Menactra) Unknown Completed [facility] eybold - External Bexsero (Meningococcal Group B) Unknown [facility] MMR- Measles, Mumps, Rubella Unknown Completed [facility] - External Pneumococcal Vaccine, Conjugate 7 Unknown Completed [facility] External IPV- Inactivated Polio Vaccine Unknown Completed [facility] - External Tdap- (Boostrix, Adacel) Unknown Completed [facility] External Varicella Vaccine Unknown Completed Kris florey Seybold - External DTaP Unknown Completed Jacqui Dietz bold - External DTaP Unknown Completed Jacqui Se bold - External DTaP Unspecified Unknown Completed Jin [facility] - External Influenza, Injectable, Mdck, Preservative Free, Quadrivalent Unknown Completed [facility] ybold - External HEPATITIS A- PEDI/ADOL Unknown Completed [facility] External Hepatitis B, Adolescent Or Pediatric Unknown [facility]- Haemophilus Influenzae Type B Unknown Completed Jacqui J Luis bold - External HPV 4 (Human Papillomavirus) Unknown Completed Jacqui [facility] - External HPV 9 (Human Papillomavirus) Unknown Completed Jacqui [facility] - External Meningococcal Vaccine- Conjugate(Menactra) Unknown Completed [facility] eybold - External Bexsero (Meningococcal Group B) Unknown [facility] MMR- Measles, Mumps, Rubella Unknown [facility] External Pneumococcal Vaccine, Conjugate 7 [facility]- Inactivated Polio Vaccine [facility] Tdap- (Boostrix, Adacel) Unknown Completed Jacqui Seybold - External Varicella Vaccine Unknown Completed Kris reyes Seybold - External DTaP Unspecified Unknown Completed Jin dietz Seybold - External Influenza, Injectable, Mdck, Preservative Free, Quadrivalent Unknown Completed Jacqui Caal ybsalome - External HEPATITIS A- PEDI/ADOL Unknown Completed Jacqui Mcdonaldold - External Hepatitis B, Adolescent Or Pediatric Unknown Completed Jacqui Mcdonaldold - External HIB- Haemophilus Influenzae Type B Unknown Completed Jacqui Dietz bold - External HPV 4 (Human Papillomavirus) Unknown Completed Jacqui Fischer ld - External HPV 9 (Human Papillomavirus) Unknown Completed Jacqui Fischer ld - External Meningococcal Vaccine- Conjugate(Menactra) Unknown Completed Jacqui goldenbold - External Bexsero (Meningococcal Group B) Unknown Completed Jacqui Ortega - External MMR- Measles, Mumps, Rubella Unknown Completed Jacqui Ortega - External Pneumococcal Vaccine, Conjugate 7 Unknown Completed Jacqui Ortega - External IPV- Inactivated Polio Vaccine Unknown Completed Jacqui Ortega - External Tdap- (Boostrix, Adacel) Unknown Completed Jacqui Ortega - External Varicella Vaccine Unknown Completed Kris reyes Seybold - External Vital Signs Vital Name Observation Time Observation Value Comments S ource Systolic blood pressure 2024-08-29 14:37:00 118 mm[Hg] Jacqui Mcdonaldo ld - External Diastolic blood pressure 2024-08-29 14:37:00 78 mm[Hg] Jacqui Mcdonaldo ld - External Heart rate 2024-08-29 14:37:00 88 /min Jinse banks Sedorothyold - External Body temperature 2024-08-29 14:37:00 37.17 Nadia Jacqui Caalybold - External Respiratory rate 2024-08-29 14:37:00 18 /min Jacqui Mcdonaldold - External Body height 2024-08-29 14:37:00 167.6 cm Rosa golden Seybold - External Body weight 2024-08-29 14:37:00 138.075 kg Rosa golden Seybold - External BMI 2024-08-29 14:37:00 49.13 kg/m2 Rosa golden Seybold - External Oxygen saturation in Arterial blood by Pulse oximetry 2024-08-29 14:37:00 100 /min Jacqui Mcdonaldo ld - External Systolic blood pressure 2024-07-06 20:30:00 98 mm[Hg] Jacqui Seybo ld - External Diastolic blood pressure 2024-07-06 20:30:00 82 mm[Hg] Jacqui Seybo ld - External Heart rate 2024-07-06 20:30:00 66 /min Kelse y Seybold - External Body temperature 2024-07-06 20:30:00 37.17 Nadia Jacqui Seybold - External Respiratory rate 2024-07-06 20:30:00 18 /min Jacqui Seybold - External Body height 2024-07-06 20:30:00 167.6 cm Rosa ey Seybold - External Body weight 2024-07-06 20:30:00 136.533 kg Rosa ey Seybold - External BMI 2024-07-06 20:30:00 48.58 kg/m2 Rosa ey Seybold - External Systolic blood pressure 2024-06-12 22:05:00 132 mm[Hg] Jacqui Seybo ld - External Diastolic blood pressure 2024-06-12 22:05:00 80 mm[Hg] Jacqui Seybo ld - External Heart rate 2024-06-12 22:05:00 84 /min Kelse y Seybold - External Body temperature 2024-06-12 22:05:00 36.61 Nadia Jacqui Seybold - External Respiratory rate 2024-06-12 22:05:00 20 /min Jacqui Seybold - External Body height 2024-06-12 22:05:00 167.6 cm Rosa ey Seybold - External Body weight 2024-06-12 22:05:00 137.44 kg Rosa ey Seybold - External BMI 2024-06-12 22:05:00 48.91 kg/m2 Rosa ey Seybold - External Systolic blood pressure 2024-05-29 17:00:00 122 mm[Hg] Jacqui Seybo ld - External Diastolic blood pressure 2024-05-29 17:00:00 76 mm[Hg] Jacqui Seybo ld - External Heart rate 2024-05-29 17:00:00 80 /min Kelse y Seybold - External Body temperature 2024-05-29 17:00:00 36.94 Nadia Jacqui Seybold - External Respiratory rate 2024-05-29 17:00:00 18 /min Jacqui Seybold - External Body height 2024-05-29 17:00:00 167.6 cm Rosa ey Seybold - External Body weight 2024-05-29 17:00:00 138.12 kg Rosa ey Seybold - External BMI 2024-05-29 17:00:00 49.15 kg/m2 Rosa ey Seybold - External Oxygen saturation in Arterial blood by Pulse oximetry 2024-05-29 17:00:00 99 /min Jacqui Seybo ld - External Systolic blood pressure 2024-05-19 16:14:00 123 mm[Hg] Jacqui Seybo ld - External Diastolic blood pressure 2024-05-19 16:14:00 82 mm[Hg] Jacqui Seybo ld - External Heart rate 2024-05-19 16:14:00 87 /min Kelse y Seybold - External Body temperature 2024-05-19 16:14:00 37.06 Nadia Jacqui Seybold - External Respiratory rate 2024-05-19 16:14:00 20 /min Jacqui Seybold - External Body height 2024-05-19 16:14:00 167.6 cm Rosa ey Seybold - External Body weight 2024-05-19 16:14:00 138.347 kg Rosa ey Seybold - External BMI 2024-05-19 16:14:00 49.23 kg/m2 Rosa ey Seybold - External Systolic blood pressure 2024-05-17 15:12:00 139 mm[Hg] Jacqui Seybo ld - External Diastolic blood pressure 2024-05-17 15:12:00 89 mm[Hg] Jacqui Seybo ld - External Heart rate 2024-05-17 15:12:00 81 /min Kelse y Seybold - External Body temperature 2024-05-17 15:12:00 36.5 Nadia Jacqui Seybold - External Respiratory rate 2024-05-17 15:12:00 16 /min Jacqui Seybold - External Body height 2024-05-17 15:12:00 167.6 cm Rosa ey Seybold - External Body weight 2024-05-17 15:12:00 141.976 kg Rosa ey Seybold - External BMI 2024-05-17 15:12:00 50.52 kg/m2 Orsa ey Seybold - External Oxygen saturation in Arterial blood by Pulse oximetry 2024-05-17 15:12:00 99 /min Jacqui Caalybo ld - External Systolic blood pressure 2024-01-11 19:46:00 122 mm[Hg] Jacqui Seybo ld - External Diastolic blood pressure 2024-01-11 19:46:00 81 mm[Hg] Jacqui Seybo ld - External Heart rate 2024-01-11 19:46:00 84 /min Kelse y Seybold - External Body temperature 2024-01-11 19:46:00 37.22 Nadia Jacqui Seybold - External Respiratory rate 2024-01-11 19:46:00 13 /min Jacqui Seybold - External Body height 2024-01-11 19:46:00 167.6 cm Rosa ey Seybold - External Body weight 2024-01-11 19:46:00 146.058 kg Rosa ey Seybold - External BMI 2024-01-11 19:46:00 51.97 kg/m2 Rosa ey Seybold - External Oxygen saturation in Arterial blood by Pulse oximetry 2024-01-11 19:46:00 98 /min Jacqui Caalybo ld - External Systolic blood pressure 2023-11-18 18:56:00 118 mm[Hg] Jacqui Seybo ld - External Diastolic blood pressure 2023-11-18 18:56:00 68 mm[Hg] Jacqui Caalybo ld - External Heart rate 2023-11-18 18:56:00 88 /min Kelse y Seybold - External Body temperature 2023-11-18 18:56:00 37.06 Nadia Jacqui Seybold - External Respiratory rate 2023-11-18 18:56:00 18 /min Jacqui Seybold - External Body height 2023-11-18 18:56:00 168.9 cm Rosa ey Seybold - External Body weight 2023-11-18 18:56:00 146.115 kg Rosa ey Seybold - External BMI 2023-11-18 18:56:00 51.21 kg/m2 Rosa ey Seybold - External Oxygen saturation in Arterial blood by Pulse oximetry 2023-11-18 18:56:00 98 /min Jacqui Mcdonalddereje ld - External Systolic blood pressure 2023-06-01 20:25:00 148 mm[Hg] [facility] Diastolic blood pressure 2023-06-01 20:25:00 97 mm[Hg] [facility] Heart rate 2023-06-01 20:23:00 84 /min [facility] Body temperature 2023-06-01 20:23:00 36.56 Nadia [facility] Respiratory rate 2023-06-01 20:23:00 16 /min [facility] Body height 2023-06-01 20:23:00 168.9 cm [facility] Body weight 2023-06-01 20:23:00 134.31 kg [facility] BMI 2023-06-01 20:23:00 47.08 kg/m2 [facility] saturation in Arterial blood by Pulse oximetry 2023-06-01 20:23:00 100 /min [facility] Systolic blood pressure 2023-04-06 19:19:00 168 mm[Hg] [facility] Diastolic blood pressure 2023-04-06 19:19:00 95 mm[Hg] [facility] Heart rate 2023-04-06 19:17:00 89 /min [facility] Body temperature 2023-04-06 19:17:00 37 Nadia [facility] Respiratory rate 2023-04-06 19:17:00 18 /min [facility] Body height 2023-04-06 19:17:00 167.6 cm [facility] Body weight 2023-04-06 19:17:00 134.083 kg [facility] BMI 2023-04-06 19:17:00 47.71 kg/m2 [facility] Oxygen saturation in Arterial blood by Pulse oximetry 2023-04-06 19:17:00 98 /min [facility] Systolic blood pressure 2023-01-01 20:03:00 136 mm[Hg] [facility] Diastolic blood pressure 2023-01-01 20:03:00 87 mm[Hg] [facility] Heart rate 2023-01-01 20:03:00 87 /min [facility] Body temperature 2023-01-01 20:03:00 37.22 Nadia [facility] Body height 2023-01-01 20:03:00 167.6 cm [facility] Body weight 2023-01-01 20:03:00 137.304 kg [facility] BMI 2023-01-01 20:03:00 48.86 kg/m2 [facility] Oxygen saturation in Arterial blood by Pulse oximetry 2023-01-01 20:03:00 98 /min [facility] Systolic blood pressure 2022-12-28 19:57:00 135 mm[Hg] [facility] Diastolic blood pressure 2022-12-28 19:57:00 84 mm[Hg] [facility] Heart rate 2022-12-28 19:57:00 74 /min [facility] Respiratory rate 2022-12-28 19:57:00 18 /min [facility] Body height 2022-12-28 19:57:00 167.6 cm [facility] Body weight 2022-12-28 19:57:00 138.347 kg [facility] BMI 2022-12-28 19:57:00 49.23 kg/m2 [facility] Diastolic blood pressure 2022-11-25 20:32:00 86 mm[Hg] [facility] Heart rate 2022-11-25 20:32:00 79 /min [facility] Body temperature 2022-11-25 20:32:00 36.89 Nadia [facility] Respiratory rate 2022-11-25 20:32:00 18 /min [facility] Body height 2022-11-25 20:32:00 168.9 cm [facility] Body weight 2022-11-25 20:32:00 137.032 kg [facility] BMI 2022-11-25 20:32:00 48.03 kg/m2 [facility] Systolic blood pressure 2022-11-25 20:32:00 126 mm[Hg] [facility] Systolic blood pressure 2022-08-30 20:45:00 132 mm[Hg] [facility] Diastolic blood pressure 2022-08-30 20:45:00 87 mm[Hg] [facility] Heart rate 2022-08-30 20:45:00 84 /min [facility] Body temperature 2022-08-30 20:45:00 37.72 Nadia [facility] Respiratory rate 2022-08-30 20:45:00 16 /min [facility] Body height 2022-08-30 20:45:00 167.6 cm [facility] Body weight 2022-08-30 20:45:00 113.399 kg [facility] BMI 2022-08-30 20:45:00 40.35 kg/m2 [facility] Oxygen saturation in Arterial blood by Pulse oximetry 2022-08-30 20:45:00 100 /min [facility] Systolic blood pressure 2021-07-11 16:04:00 124 mm[Hg] [facility] Diastolic blood pressure 2021-07-11 16:04:00 83 mm[Hg] [facility] Heart rate 2021-07-11 16:04:00 73 /min [facility] Body height 2021-07-11 16:04:00 167.6 cm [facility] Body weight 2021-07-11 16:04:00 127.914 kg [facility] BMI 2021-07-11 16:04:00 45.52 kg/m2 [facility] Body mass index (BMI) [Percentile] Per age and sex 2021-07-11 16:04:00 98.95 % [facility] Procedures Procedure Date / Time Performed Performing Clinician Source FLU VACC ([id number]), 6 MO-64 YRS, .5ML, IM, QUAD (FLUCELVAX) 2023-06-01 20:32:50 Kiara Vora [facility] FREE T4 2023-01-01 21:14:00 Kiara Vora Un [facility] THYROID STIMULATING HORMONE 2023-01-01 21:14:00 Kiara Vora [facility] COMP. METABOLIC PANEL (41141) 2023-01-01 21:14:00 Kiara Vora [facility] LIPID PANEL (65136)(TOTAL CHOLESTEROL, TRIGLYCERIDES, HDL) 2023-01-01 21:14:00 Kiara Vora [facility] CBC WITH DIFF 2023-01-01 21:14:00 [facility] GLYCOSYL[facility] HEMOGLOBIN (A1C) 2023-01-01 21:14:00 Kiara Vora [facility] FREE T3 2023-01-01 21:14:00 Kiara Vora Un [facility] ASSIGNMENT OF BENEFITS 2022-11-25 20:00:05 Docto r Unassigned, [place] [facility] POCT URINALYSIS W/O SPECIFIC GRAVITY 2022-11-25 00:00:00 Santa Link [facility] URINALYSIS 2022-08-30 21:01:00 Luba Gamble [facility] NOTICE OF PRIVACY PRACTICES 2022-08-30 20:40:12 Doctor Unassigned, [place] [facility] CONSENT/REFUSAL FOR DIAGNOSIS AND TREATMENT 2022-08-30 20:39:45 Doctor Unassigned, [place] [facility] XR HAND 3+ VW LEFT 2021-07-11 16:22:00 Romel Figueroa [facility] REFERRAL- REQUEST/RESPONSE 2021-07-10 06:01:00 Doctor Unassigned, [place] [facility] Encounters Start Date/Time End Date/Time Encounter Type Admission Type Attending Clinicians Care Facility Care Department Encounter ID Source 2024-10-17 08:45:00 2024-10-17 08:45:00 Outpatient SANTOS MADSEN [id number] Jacqui Ortega 2024-10-05 15:30:00 2024-10-05 15:30:00 Outpatient SANTOS MADSEN [id number] Jacqui Seybsalome 2024-08-29 09:10:00 2024-08-29 09:10:00 Outpatient [id number] JACQUI CALDWELL [id number] Jacqui Caalybsalome 2024-08-29 08:30:00 2024-08-29 08:30:00 Outpatient SANTOS MADSEN JACQUI CALDWELL [id number] Jacqui Seybsalome 2024-07-24 00:00:00 2024-07-24 00:00:00 Outpatient SANTOS MADSEN JACQUI CALDWELL [id number] Jacqui Seybsalome 2024-07-18 11:00:00 2024-07-18 11:00:00 Outpatient LATISHA MCKENNA [id number] Jacqui Seybsalome 2024-07-06 15:00:00 2024-07-06 15:00:00 Outpatient LAB47 JACQUI CALDWELL [id number] Jacqui Seybold 2024-07-06 14:30:00 2024-07-06 14:30:00 Outpatient CATE VICKERS [id number] Jacqui Seybold 2024-07-05 10:28:00 2024-07-05 10:28:00 Outpatient LATISHA MCKENNA [id number] Jacqui Seybold 2024-06-28 08:30:00 2024-06-28 08:30:00 Outpatient WALESKA BOLANOS [id number] Jacqui Seybold 2024-06-28 00:00:00 2024-06-28 00:00:00 Outpatient MD JACQUI IQBAL [id number] Jacqui Seybold 2024-06-12 16:00:00 2024-06-12 16:00:00 Outpatient SANTIAGO TUTTLE [id number] Jacqui Seybold 2024-06-08 10:30:00 2024-06-08 10:30:00 Outpatient LATISHA MCKENNA [id number] Jacqui Seybold 2024-06-07 00:00:00 2024-06-07 00:00:00 Outpatient CATALINA MOLINA [id number] Jacqui Seybold 2024-06-01 00:00:00 2024-06-01 00:00:00 Outpatient CATALINA MOLINA [facility] [id number] [facility] 2024-05-29 11:15:00 2024-05-29 11:15:00 Outpatient PREZASANTOS Terrell JACQUI CALDWELL [id number] [facility] 2024-05-22 00:00:00 2024-05-22 00:00:00 Outpatient CATALINA MOLINA JACQUI CALDWELL [id number] [facility] 2024-05-19 11:00:00 2024-05-19 11:00:00 Outpatient CATALINA MOLINA JACQUI CALDWELL [id number] Jacqui [facility] 2024-05-19 00:00:00 2024-05-19 00:00:00 Outpatient MD JACQUI IQBAL [id number] [facility] 2024-05-17 10:15:00 2024-05-17 10:15:00 [facility] [id number] [facility] 2024-04-26 00:00:00 2024-04-26 00:00:00 Outpatient PREZASSANTOS JACQUI CALDWELL [id number] [facility] 2024-04-25 15:05:00 2024-04-25 15:05:00 Outpatient KATINA CALDWELL [id number] [facility] 2024-04-24 00:00:00 2024-04-24 00:00:00 Outpatient PREZASSANTOS JACQU[facility] CALDWELL [id number] [facility] 2024-04-21 14:15:00 2024-04-21 14:15:00 Outpatient LINDA MINER [id number] [facility] 2024-04-20 15:30:00 2024-04-20 15:30:00 Outpatient WALESKA BOLANOS [id number] [facility] 2024-04-12 15:30:00 2024-04-12 15:30:00 Outpatient PREZADANIEL TerrellAND JACQUI CALDWELL [id number] Jacqui Jordan 2024-03-22 13:30:00 2024-03-22 13:30:00 Outpatient WALESKA BOLANOS JACQUI CALDWELL [id number] Jacqui Caalybsalome 2024-03-20 11:00:00 2024-03-20 11:00:00 Outpatient MACFERN WHITE JACQUI CALDWELL [id number] Jacqui Caalybsalome 2024-03-18 00:00:00 2024-03-18 00:00:00 Outpatient PREZAS, SANTOS JACQUI CALDWELL [id number] Jacqui Caalsalome 2024-03-14 00:00:00 2024-03-14 00:00:00 Outpatient PREZAS, SANTOS JACQUI CALDWELL [id number] [facility] 2024-03-08 00:00:00 2024-03-08 00:00:00 Outpatient PREZAS, SANTOS JACQUI CALDWELL [id number] [facility] 2024-02-10 16:00:00 2024-02-10 16:00:00 Outpatient WALESKA BOLANOS JACQUI CALDWELL [id number] [facility] 2024-01-24 14:45:00 2024-01-24 14:45:00 Outpatient OU, CHUCKY JACQUI CALDWELL [id number] [facility] 2024-01-17 00:00:00 2024-01-17 00:00:00 Outpatient PREZAS, SANTOS JACQUI CALDWELL [id number] [facility] 2024-01-11 15:00:00 2024-01-11 15:00:00 Outpatient PREZAS, SANTOS JACQUI CALDWELL [id number] Jacqui [facility] 2023-11-19 11:00:00 2023-11-19 11:00:00 Outpatient JACQUI CALDWELL [id number] [facility] 2023-11-19 10:55:00 2023-11-19 10:55:00 Outpatient JACQUI CALDWELL [id number] [facility] 2023-11-19 10:50:00 2023-11-19 10:50:00 Outpatient JACQUI CALDWELL [id number] [facility] 2023-11-18 14:45:00 2023-11-18 14:45:00 Outpatient LAB90 JACQUI CALDWELL [id number] Jacqui Ortega 2023-11-18 14:00:00 2023-11-18 14:00:00 Outpatient SANTOS MADSEN [id number] Jacqui Ortega 2023-06-08 00:00:00 2023-06-08 00:00:00 Telephone Kiara Vora [facility] 1.2.840.114 350.1.13.10 4.2.7.2.686 [id number] [facility] 2023-06-01 14:30:00 2023-06-01 16:45:24 Outpatient R KIARA VORA KIARA [facility] [id number] [facility] 2023-06-01 14:30:00 2023-06-01 16:45:24 Office Visit Kiara Vora [facility] 1.2.840.114 350.1.13.10 4.2.7.2.686 [id number] [facility] 2023-04-06 14:30:00 2023-04-06 15:05:46 Office Visit Kiara Vora [facility] 1.2.840.114 350.1.13.10 4.2.7.2.686 [id number] [facility] 2023-04-06 14:30:00 2023-04-06 15:05:46 Outpatient R KIARA VORA KIARA [facility] [id number] [facility] 2023-01-01 16:15:00 2023-01-01 16:30:00 Tip Printer Visit 2, Adc Lab Kiara Vora [facility] 1.2.840.114 350.1.13.10 4.2.7.2.686 [id number] [facility] 2023-01-01 15:00:00 2023-01-01 15:58:57 Outpatient R KIARA VORA OGECHUKWU [facility] [id number] [facility] 2023-01-01 15:00:00 2023-01-01 15:58:57 Office Visit Kiara Vora [facility] 1.2.840.114 350.1.13.10 4.2.7.2.686 [id number] [facility] 2022-12-28 15:00:00 2022-12-28 15:07:56 Outpatient R PER SANDERS CHERYAL [facility] [id number] [facility] 2022-12-28 15:00:00 2022-12-28 15:07:56 Office Visit Per Sanders [facility] 1.2840.114 350.1.13.10 4.2.7.2.686 [id number] [facility] 2022-12-02 00:00:00 2022-12-02 00:00:00 Telephone [facility] 1.2.840.114 350.1.13.10 4.2.7.2.686 [id number] [facility] 2022-11-27 00:00:00 2022-11-27 00:00:00 Telephone Bonita [facility]ly [facility] 1.2.840.114 350.1.13.10 4.2.7.2.686 [id number] [facility] 2022-11-25 15:00:00 2022-11-25 16:58:37 Outpatient R SANTA LINK [facility] [id number] [facility] 2022-11-25 15:00:00 2022-11-25 15:30:00 Office Visit Santa Link [facility] 1.2.114 350.1.13.10 4.2.7.2.686 [id number] [facility] 2022-11-25 00:00:00 2022-11-25 00:00:00 Orders Only Doctor Unassigned, [place] [facility] 1.20.114 350.1.13.10 4.2.7.2.686 [id number] [facility] 2022-08-30 14:47:00 2022-08-30 16:49:00 Emergency X LUBA GAMBLE [facility] ERT [id number] [facility] 2022-08-30 14:47:00 2022-08-30 16:49:00 Emergency Luba Gamble [facility] 1.0.114 350.1.13.10 4.2.7.2.686 [id number] [facility] 2021-07-11 10:14:05 2021-07-11 23:59:00 Outpatient R ROMEL FIGUEROA [facility] [id number] [facility] 2021-07-11 10:14:05 2021-07-11 23:59:00 Hospital Encounter Romel Figueroa [facility] 1.0.114 350.1.13.10 4.2.7.2.686 [id number] [facility] 2021-07-11 10:00:00 2021-07-11 10:30:10 Office Visit Romel Figueroa [facility] 1.0.114 350.1.13.10 4.2.7.2.686 [id number] [facility] 2021-07-11 10:00:00 2021-07-11 10:00:00 Outpatient R ROMEL FIGUEROA [facility] [id number] [facility] 2021-07-11 00:00:00 2021-07-11 00:00:00 Orders Only Doctor Unassigned, [place] [facility] 1.2.840.114 350.1.13.10 4.2.7.2.686 [id number] [facility] 2021-07-10 00:00:00 2021-07-10 00:00:00 Orders Only Doctor Unassigned, [place] [facility] 1.2.840.114 350.1.13.10 4.2.7.2.686 [id number] [facility] 2020-01-10 22:25:00 2020-01-10 23:39:00 Emergency SIMÓN RICHTER BL [facility] [address] [facility] Results Test Description Test Time Test Comments Results Result Co mments Source [facility]A1C)2023-01-01 23:06:42* Test Item Value Reference Range Interpretation Comme nts HGB A1C (test code = 4548-4) 4.9 % 4.0-5.7 ANDRES (test code = ANDRES) Reference RangesNormal: <5.7%Prediabetes: 5.7 - 6.4%Diabetes: > 6.5% Lab Interpretation (test code = 69939-6) Normal [facility] [id number] 23:04:28 * Test Item Value Reference Range Interpretation Comme nts TSH (test code = 9958888421) 1.24 See_Comment [Automated messa ge] The system which generated this result transmitted reference range: 0.45 - 4.70 mIU/L. The reference range was not used to interpret this result as normal/abnormal. Lab Interpretation (test code = 67388-2) Normal [facility] [id number] 23:04:28 * Test Item Value Reference Range Interpretation Comme nts TSH (test code = 8068390137) 1.24 See_Comment [Automated messa ge] The system which generated this result transmitted reference range: 0.45 - 4.70 mIU/L. The reference range was not used to interpret this result as normal/abnormal. Lab Interpretation (test code = 82018-0) Normal [facility] [id number] 22:50:47* Test Item Value Reference Range Interpretation Comme nts FREE T4 (test code = 7456512797) 0.93 See_Comment [Automated messa ge] The system which generated this result transmitted reference range: 0.78 - 2.20 ng/dL:. The reference range was not used to interpret this result as normal/abnormal. Lab Interpretation (test code = 20114-2) [facility] [id number] 22:50:47* Test Item Value Reference Range Interpretation Comme nts FREE T4 (test code = 4707711369) 0.93 See_Comment [Automated messa ge] The system which generated this result transmitted reference range: 0.78 - 2.20 ng/dL:. The reference range was not used to interpret this result as normal/abnormal. Lab Interpretation (test code = 29543-6) Normal [facility] 22:50:27* Test Item Value Reference Range Interpretation Comme nts FREE T3 (test code = 3533633422) 3.61 pg/mL 2.77-5.27 Lab Interpretation (test cod e = 77623-7) Normal [place] [id number] 22:50:27* Test Item Value Reference Range Interpretation Comme nts FREE T3 (test code = 8815750488) 3.61 pg/mL 2.77-5.27 Lab Interpretation (test cod e = 13954-3) Normal [facility] (88442)(TOTAL CHOLESTEROL, TRIGLYCERIDES, HDL)2023-01-01 22:33:43* Test Item Value Reference Range Interpretation Comme nts CHOL (test code = 8154826650) 141 mg/dL 120-200 HDL (test code = 1138462947) 52 mg/dL >=50 HDLC RATIO (test code = 1436430893) 2.7 <=4.5 TRIG (test code = 0700960225) 71 mg/dL 30-170 LDL CHOL (test code = 97925-0) 75 mg/dL <=160 VLDL (test code = 0870147781) 14 mg/dL 5-60 Lab Interpretation (test cod e = 43551-0) [facility] METABOLIC PANEL (57759)2023-01-01 22:33:43* Test Item Value Reference Range Interpretation Comme nts NA (test code = 0171117707) 141 mmol/L 135-145 K (test code = 2578892907) 4.1 mmol/L 3.5-5.0 CL (test code = 8812603548) 105 mmol/L 98-108 CO2 TOTAL (test code = 2025413735) 26 mmol/L 23-31 AGAP (test code = 6550097456) 10 2-16 BUN (test code = 6950346908) 17 mg/dL 7-23 GLUCOSE (test code = 3927149548) 86 mg/dL 70-110 CREATININE (test code = 9614793629) 0.71 mg/dL 0.50-1.04 TOTAL BILI (test code = 3246481364) 0.5 mg/dL 0.1-1.1 CALCIUM (test code = 7465937795) 9.4 mg/dL 8.6-10.6 T PROTEIN (test code = 4062660458) 7.7 g/dL 6.3-8.2 ALBUMIN (test code = 5014630925) 4.5 g/dL 3.5-5.0 ALK PHOS (test code = 6673946390) 58 U/L 34-122 ALTv (test code = 1742-6) 19 U/L 5-35 AST(SGOT) (test code = 6481374660) 20 U/L 13-40 eGFR (test code = 2060263574) 103.9 mL/min/1.73m2 ANDRES (test code = ANDRES) [...] or urine or abnormalities in imaging tests). [facility]TOTAL CHOLESTEROL, TRIGLYCERIDES, HDL)2023-01-01 22:33:43* Test Item Value Reference Range Interpretation Comme nts CHOL (test code = 3766225717) 141 mg/dL 120-200 HDL (test code = 0679232541) 52 mg/dL >=50 HDLC RATIO (test code = 2156805636) 2.7 <=4.5 TRIG (test code = 2969566541) 71 mg/dL 30-170 LDL CHOL (test code = 45079-0) 75 mg/dL <=160 VLDL (test code = 8340754860) 14 mg/dL 5-60 Lab Interpretation (test cod e = 07069-7) [facility] (94358)2023-01-01 22:33:43* Test Item Value Reference Range Interpretation Comme nts NA (test code = 0938741750) 141 mmol/L 135-145 K (test code = 6011106673) 4.1 mmol/L 3.5-5.0 CL (test code = 4549004924) 105 mmol/L 98-108 CO2 TOTAL (test code = 8626804341) 26 mmol/L 23-31 AGAP (test code = 8276804179) 10 2-16 BUN (test code = 3048283696) 17 mg/dL 7-23 GLUCOSE (test code = 9203503557) 86 mg/dL 70-110 CREATININE (test code = 4705966330) 0.71 mg/dL 0.50-1.04 TOTAL BILI (test code = 0056179417) 0.5 mg/dL 0.1-1.1 CALCIUM (test code = 2372543185) 9.4 mg/dL 8.6-10.6 T PROTEIN (test code = 2577513076) 7.7 g/dL 6.3-8.2 ALBUMIN (test code = 4827127834) 4.5 g/dL 3.5-5.0 ALK PHOS (test code = 5903205291) 58 U/L 34-122 ALTv (test code = 1742-6) 19 U/L 5-35 AST(SGOT) (test code = 3875198396) 20 U/L 13-40 eGFR (test code = 3034767197) 103.9 mL/min/1.73m2 ANDRES (test code = ANDRES) [...] or urine or abnormalities in imaging tests). [facility] WITH [id number] 21:55:56* Test Item Value Reference Range Interpretation Comme nts WBC (test code = 6690-2) 6.15 See_Comment [Automated [employer]] The system which generated this result transmitted reference range: 4.30 - 11.10 10*3/?L. The reference range was not used to interpret this result as normal/abnormal. RBC (test code = 789-8) 4.58 See_Comment [Automated [employer]] The system which generated this result transmitted [...] 33.1 g/dL 31.6-35.1 RDW-SD (test code = 24215-6) 39.9 fL 39.0-49.9 RDW-CV (test code = 788-0) 13.1 % 12.0-15.5 PLT (test code = 777-3) 257 See_Comment [Automated [employer] ge] The system which generated this result transmitted reference range: 166 - 358 10*3/?L. The reference range was not used to interpret this result as normal/abnormal. MPV (test code = 34189-5) 11.5 fL 9.5-12.9 NRBC/100 WBC (test code = 1095684889) 0.0 See_Comment [Automated N(i)² ssage] The system which generated this result transmitted reference range: 0.0 - 10.0 /100 WBCs. The reference range was not used to interpret this result as normal/abnormal. NRBC x10^3 (test code = 5210480220) See_Comment [Automated me ssage] The system which generated this result transmitted reference range: 10*3/?L. The reference range was not used to interpret this result as normal/abnormal. GRAN MAT (NEUT) % (test code = 770-8) 56.4 % IMM GRAN % (test code = 7526764172) 0.20 % LYMPH % (test code = 736-9) 30.9 % MONO % (test code = 5905-5) 9.3 % EOS % (test code = 713-8) 2.4 % BASO % (test code = 706-2) 0.8 % GRAN MAT x10^3(ANC) (test code = 5682915518) 3.47 10*3/uL 1.88-7.09 IMM GRAN x10^3 (test code = 3195972152) 0.00-0.06 LYMPH x10^3 (test code = 731-0) 1.90 10*3/uL 1.32-3.29 MONO x10^3 (test code = 742-7) 0.57 10*3/uL 0.33-0.92 EOS x10^3 (test code = 711-2) 0.15 10*3/uL 0.03-0.39 BASO x10^3 (test code = 704-7) 0.05 10*3/uL 0.01-0.07 [facility] WITH [id number] 21:55:56* Test Item Value Reference Range Interpretation [...] 33.1 g/dL 31.6-35.1 RDW-SD (test code = 35884-7) 39.9 fL 39.0-49.9 RDW-CV (test code = 788-0) 13.1 % 12.0-15.5 PLT (test code = 777-3) 257 See_Comment [Automated messa ge] The system which generated this result transmitted reference range: 166 - 358 10*3/?L. The reference range was not used to interpret this result as normal/abnormal. MPV (test code = 29565-5) 11.5 fL 9.5-12.9 NRBC/100 WBC (test code = 4392135916) 0.0 See_Comment [Automated me ssage] The system which generated this result transmitted reference range: 0.0 - 10.0 /100 WBCs. The reference range was not used to interpret this result as normal/abnormal. NRBC x10^3 (test code = 2924875071) See_Comment [Automated me ssage] The system which generated this result transmitted reference range: 10*3/?L. The reference range was not used to interpret this result as normal/abnormal. GRAN MAT (NEUT) % (test code = 770-8) 56.4 % IMM GRAN % (test code = 0060854853) 0.20 % LYMPH % (test code = 736-9) 30.9 % MONO % (test code = 5905-5) 9.3 % EOS % (test code = 713-8) 2.4 % BASO % (test code = 706-2) 0.8 % GRAN MAT x10^3(ANC) (test code = 9584254195) 3.47 10*3/uL 1.88-7.09 IMM GRAN x10^3 (test code = 4735066402) 0.00-0.06 LYMPH x10^3 (test code = 731-0) 1.90 10*3/uL 1.32-3.29 MONO x10^3 (test code = 742-7) 0.57 10*3/uL 0.33-0.92 EOS x10^3 (test code = 711-2) 0.15 10*3/uL 0.03-0.39 BASO x10^3 (test code = 704-7) 0.05 10*3/uL 0.01-0.07 General acute hospital URINALYSIS W/O SPECIFIC [id number] 21:23:00* Test Item Value Reference Range Interpretation [...] = 3257) negative Negative - Negati ve [facility]/O SPECIFIC [id number] 21:23:00* Test Item Value Reference Range Interpretation [...] = 3257) negative Negative - Negati ve [facility] Notes Date/Time Note Provider Source 2024-08-29 08:39:52 Chief Complaint Patient presents with OTHER Patient is present for 3 month follow up on obesity and DJD Juancarlos Cazares MA B MANAGER Juacnarlos Cazares MA [facility] 2024-07-06 14:30:21 Chief Complaint Patient presents with Diarrhea Diarrhea and stomach cramps x 1 week OTHER Urinary frequency Headache No other voiced concerns R Francis MA, II [facility] 2024-06-12 16:13:05 Chief Complaint Patient presents with Vaginal Problem Christel Avilez CMA I [facility] 2024-05-29 11:04:49 Chief Complaint Patient presents with Follow-up 3 month follow up Bridgett Collins LVN [facility] 2024-05-19 11:10:30 Alexander Rooney is here today for her Well Woman Exam. Patient's last menstrual period was 05/04/2024. Control Method: None Additional concerns patient would like to address with provider: Vaginal odor; Discharge;Spotting; intermittent bleeding after menses. Jennie Osborn CMA II [facility] 2024-05-17 10:14:05 Chief Complaint Patient presents with Consultation Back pain Alexander Tay a 23 year old female with a past medical history of Past Medical History: Diagnosis Date Anxiety Depression Obesity who presents to clinic with Consultation (Back pain ) . her pain is localized to Back. her pain started 9months ago. The pain has progressively gotten Worse There was not an Inciting event . The pain is described as burning and aching . There is no radiation. The pain occurs constantly . The pain is aggravated by bending, walking, and standing. The pain is alleviated by rest and laying down. At its worst the pain is rated as a 10 out of 10, at its best the pain is rated as a 3 out of 10 and on average the pain is rated as a 5 out of 10. So far the patient has tried PT < 6 weeks. Current medications include none which they take 0 x's a months. . Patient denies bowel or bladder incontinence. Patient denies weakness. ADE Padilla [facility] 2024-01-11 14:50:17 Chief Complaint Patient presents with Physical [facility] 2023-11-18 13:59:49 Chief Complaint Patient presents with New Patient Establish Care Weight and depression Bridgett Collins LVN [facility]"
[2024-09-28 02:13] LABS: Specific Gravity 1.012 (1.005-1.030)
[2024-09-28 02:14] LABS: Absolute Basophils 0.1 K/uL (0-0.5); Absolute Eosinophils 0.3 K/uL (0-0.5); Absolute Lymphocytes (CBC) 3.1 K/uL (0.7-4.9); Absolute Monocytes 1.2 K/uL (0.1-1.3); Absolute Neutrophil 5.9 K/uL (1.8-8.0); Basophils % 0.7 % (0-1.3); Eosinophils % 2.6 % (0-4.4); Hemoglobin 12.8 g/dL (12.0-15.0); Lymphocytes % 29.1 % (15.3-44.8); MCH 27.2 pg (27.0-35.0); MCHC 32.8 g/dL (32.0-36.0); MCV 83.1 fL (80-100); Monocytes % 11.7 % (3.3-12.3); Neutrophils % 55.9 % (41.7-73.7); Nucleated Red Blood Cells % 0.2 % (0-0); Platelets 222 thou/uL (152-406); Red Cell Distribution Width 15.5 % (12.1-15.2)
[2024-09-28 02:15] LABS: PT Prothrombin Time 13.4 SECONDS (10.0-13.0); Protime INR 1.18
[2024-09-28 02:18] LABS: Barbiturates NEGATIVE (NEGATIVE); Benzodiazepines NEGATIVE (NEGATIVE); Cocaine NEGATIVE (NEGATIVE); METHAMPHETAM NEGATIVE (NEGATIVE); Methadone NEGATIVE (NEGATIVE); Opiates NEGATIVE (NEGATIVE); Phencyclidine NEGATIVE (NEGATIVE); THC Cannibis NEGATIVE (NEGATIVE)
[2024-09-28 02:26] LABS: ALT/SGPT 19 U/L (13-56); Albumin 3.6 g/dL (3.4-5.0); Albumin/Globulin Ratio 0.9 (1.1-1.8); Alkaline Phosphatase 67 U/L (45-117); Anion Gap 10.5 mEq/L (5.0-15.0); BUN Blood Urea Nitrogen 17 mg/dL (7-18); Bicarbonate 18 mEq/L (21-32); Bilirubin Total 0.5 mg/dL (0.2-1.0); Globulin 4.2 g/dL (2.3-3.5); Glomerular Filtration Rate 61 ml/min (=/>90); Glucose Level 77 mg/dL (74-106); Magnesium 2.3 mg/dL (1.6-2.4); NT PRO-BNP 10 pg/mL (<125); Potassium 3.5 mEq/L (3.5-5.1); Protein, Total 7.8 g/dL (6.4-8.2); Sodium Level 139 mEq/L (136-145)
[2024-09-28 02:30] LABS: AST/SGOT < 10 U/L (15-37); Bilirubin Direct < 0.2 mg/dL (0-0.2); Bilirubin Indirect, Calculated 0.3 mg/dL (0.2-0.8); Troponin High Sensitivity < 3.0 pg/mL (<58.9)
[2024-09-28 02:35] LABS: C-Reactive Protein 12.4 mg/L (<3.00); Thyroid Stimulating Hormone 3.18 uIU/mL (0.358-3.740)
--- NOTE | 2024-09-28 04:43 | EDPHYS ---
Physician Documentation [facility] Name: Dominga Rooney Age: 24 yrs Sex: Female : 2000 Arrival Date: 09/28/2024 Time: 00:50 Bed 14 Private MD: ED Physician Jefferson Brown HPI: 09/28 01:09 This 24 yrs old Black Female presents to ER via Unassigned with complaints of Chest sp4 Tightness. 09/29 01:03 Patient presents with complaint of right-sided chest discomfort starting yesterday.. 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 - Infectious Disease History:: Denies. - Social history:: Smoking status: Patient denies any tobacco usage or history of. - Family history:: not pertinent. ROS: 09/29 01:03 Constitutional: Negative for fever, chills, and weight loss, positive chest discomfort sp4 All other systems are negative, Exam: 01:03 Constitutional: This is a well developed, well nourished patient who is awake, alert, sp4 and in no acute distress. Head/Face: Normocephalic, atraumatic. Eyes: Pupils equal round and reactive to light, extra-ocular motions intact. Lids and lashes normal. Conjunctiva and sclera are not injected. Cornea within normal limits. Periorbital areas with no swelling, redness, or edema. ENT: Nares patent. No nasal discharge, no septal abnormalities noted. Tympanic membranes are normal and external auditory canals are clear. Oropharynx with no redness, swelling, or masses, exudates, or evidence of obstruction, uvula midline. Mucous membranes moist. Neck: Trachea midline, no thyromegaly or masses palpated, and no cervical lymphadenopathy. Supple, full range of motion without nuchal rigidity, or vertebral point tenderness. Chest/axilla: Normal chest wall appearance and motion. Nontender with no deformity. No lesions are appreciated. Cardiovascular: Regular rate and rhythm with a normal S1 and S2. No gallops, murmurs, or rubs. Normal PMI, no JVD. No pulse deficits. Respiratory: Lungs have equal breath sounds bilaterally, clear to auscultation and percussion. No rales, rhonchi or wheezes noted. No increased work of breathing, no retractions or nasal flaring. Abdomen/GI: Soft, with normal bowel sounds. No distension or tympany. No guarding or rebound. No evidence of tenderness throughout. Back: No spinal tenderness. No costovertebral tenderness. Skin: Warm, dry with normal turgor. Normal color with no rashes, no lesions, and no evidence of cellulitis. MS/ Extremity: Pulses equal, no cyanosis. Neurovascular intact. Full, normal range of motion. Neuro: Awake and alert, GCS 15, oriented to person, place, time, and situation. Cranial nerves II-XII grossly intact. Motor strength 5/5 in all extremities. Sensory grossly intact. Psych: Awake, alert, with orientation to person, place and time. Behavior, mood, and affect are within normal limits Vital Signs: 09/28 01:10 Weight 136.98 kg; Height 5 ft. 6 in. ; Pain 6/10; vc1 03:30 BP 125 / 70; Pulse 77; Resp 16; Temp 98.4; Pulse Ox 100% on R/A; dd2 04:20 BP 129 / 74; Pulse 79; Resp 16; Pulse Ox 100% on R/A; dd2 01:10 Body Mass Index 48.74 (136.98 kg, 167.64 cm) vc1 01:10 Pain Scale: Adult vc1 [place] Coma Score: 03:30 Eye Response: spontaneous(4). Motor Response: obeys commands(6). Verbal Response: dd2 oriented(5). Total: 15. 09/29 01:03 Eye Response: spontaneous(4). Motor Response: obeys commands(6). Verbal Response: sp4 oriented(5). Total: 15. MDM: 09/28 01:17 Medical Screening Exam initiated sp4 04:40 ED course: EXAM: XR Chest, 1 View CLINICAL HISTORY: The patient is 24 years old and is sp4 Female; CHEST PAIN TECHNIQUE: Frontal view of the chest. COMPARISON: No relevant prior studies available. FINDINGS: Lungs: Unremarkable. No consolidation. Pleural space: Unremarkable. No pneumothorax. Heart: Unremarkable. Mediastinum: Unremarkable. Normal mediastinal contour. Bones/joints: No acute findings. IMPRESSION: No acute findings in the chest. Electronically signed by: Mika Cabrera MD . 09/29 01:03 Differential diagnosis: acute pericarditis, anxiety, chest wall pain, esophagitis, sp4 gastritis. HEART Score: History: Slightly Suspicious (0), ECG: Normal (0), Age: < or = 45 years (0), Risk Factors: No Risk Factors Known (0), Troponin: < or = 1 x Normal Limit (0), Total Score = 0. Data reviewed: vital signs, nurses notes, lab test result(s), EKG, radiologic studies, plain films. ED course: Stable for discharge home . 09/28 01:10 Order name: Basic Metabolic Panel; Complete Time: 04:09/28 01:10 Order name: CBC with Diff; Complete Time: 04:09/28 01:10 Order name: LFT's; Complete Time: 04:09/28 01:10 Order name: Magnesium; Complete Time: 04:09/28 01:10 Order name: NT PRO-BNP; Complete Time: 04:09/28 01:10 Order name: PT-INR; Complete Time: 04:09/28 01:10 Order name: Troponin HS; Complete Time: 04:09/28 01:10 Order name: Test, Urine; Complete Time: 04:09/28 01:10 Order name: Urine Drug Screen; Complete Time: 04:09/28 01:30 Order name: CRP; Complete Time: 04:09/28 01:30 Order name: TSH; Complete Time: 04:33 09/28 01:30 Order name: T4 Free; Complete Time: 04:33 09/28 01:10 Order name: XRAY Chest (1 view) 09/28 01:10 Order name: Cardiac monitoring; Complete Time: 03:20 09/28 01:10 Order name: EKG - Nurse/Tech; Complete Time: 01:46 09/28 01:10 Order name: IV Saline Lock; Complete Time: 02:41 09/28 01:10 Order name: Labs collected and sent; Complete Time: 02:41 sp4 09/28 01:10 Order name: O2 Per Protocol; Complete Time: 01:46 sp4 09/28 01:10 Order name: O2 Sat Monitoring; Complete Time: 01:46 sp4 Administered Medications: 09/28 05:04 Not Given (pt left prior to meds): [id number] mg PO once dd2 05:04 Not Given (pt left prior to meds): mg PO once dd2 05:04 Not Given (pt left prior to meds): mg PO once dd2 Disposition Summary: 09/28/24 04:42 Discharge Ordered Notes: Location: Home sp4 Problem: new sp4 Symptoms: have improved sp4 Condition: Stable sp4 Diagnosis - Pleurisy sp4 - Acute right chest wall pain, elevated CRP sp4 Followup: sp4 - With: Private Physician - When: 7 - 10 days - Reason: Recheck today's complaints Discharge Instructions: - Discharge Summary Sheet sp4 - Pleurisy, Ytih-uw-Dcbd sp4 Forms: - Patient Portal Instructions sp4 Prescriptions: - naproxen 500 mg Oral tablet - take 1 tablet ORAL route every 12 hours PRN pain; 50 tablet; Refills: 0, sp4 Product Selection Permitted - Zithromax Z-Horacio 250 mg Oral Tablet - take 1 tablet ORAL route as directed for 5 days Day 1 - take two (2) tablets sp4 one time. Day 2, 3, 4 , 5 take one (1) tablet once daily.; 6 tablet; Refills: 0, Product Selection Permitted - Prednisone 20 mg Oral Tablet - take 2 tablets ORAL route once daily for 5 days; 10 tablet; Refills: 0, Product sp4 Selection Permitted Signatures: Dispatcher [employer] EDMS Chloe Romo RN RN vc1 Jefferson Brown MD MD sp4 DIMA SANZ RN dd2 Corrections: (The following items were deleted from the chart) 01:11 01:11 BASIC METABOLIC PANEL+C.LAB.BRZ ordered. EDMS EDMS 01:11 01:11 CBC+H.LAB.BRZ ordered. EDMS EDMS 01:11 01:11 HEPATIC FUNCTION+C.LAB.BRZ ordered. EDMS EDMS :11 01:11 MAGNESIUM+C.LAB.BRZ ordered. EDMS EDMS 01: 01:11 PROBNP+C.LAB.BRZ ordered. EDMS EDMS : 01:11 PROTIME (+INR)+COAG.LAB.BRZ ordered. EDMS EDMS : 01:11 Troponin High Sensitivity+C.LAB.BRZ ordered. EDMS EDMS 01: 01:11 Chest Single View+RAD.RAD.BRZ ordered. EDMS EDMS : 01:11 Test, Urine+UC.LAB.BRZ ordered. EDMS EDMS : 01:11 URINE DRUG SCREEN+UC.LAB.BRZ ordered. EDMS EDMS 01:30 01:30 C-REACTIVE PROTEIN+C.LAB.BRZ ordered. EDMS EDMS 01:30 01:30 THYROID STIMULAT HORMONE+C.LAB.BRZ ordered. EDMS EDMS 01:30 01:30 T4 FREE+C.LAB.BRZ ordered. EDMS EDMS 02:57 01:10 PMHx: degenerative disk (depressive disorder); vc1 vc1
--- NOTE | 2024-09-28 04:43 | ER ---
Nurse's Notes [facility] Name: Dominga Rooney Age: 24 yrs Sex: Female : 2000 Arrival Date: 09/28/2024 Time: 00:50 Bed 14 Private MD: Diagnosis: Pleurisy;Acute right chest wall pain, elevated CRP Presentation: 09/28 01:10 Chief complaint: Patient states: Upper chest pain that started on the 4th, hasn't went vc1 away. 01:10 Coronavirus screen: Vaccine status: Patient reports receiving the 2nd dose of the covid vc1 vaccine. Client denies travel out of the [place] in the last 14 days. At this time, the client does not indicate any symptoms associated with coronavirus-19. Ebola Screen: Patient negative for fever greater than or equal to 101.5 degrees Fahrenheit, and additional compatible Ebola Virus Disease symptoms Patient denies exposure to infectious person. Patient denies travel to an Ebola-affected area in the 21 days before illness onset. No symptoms or risks identified at this time. Initial Sepsis Screen: Does the patient meet any 2 criteria? No. Patient's initial sepsis screen is negative. Does the patient have a suspected source of infection? No. Patient's initial sepsis screen is negative. Risk Assessment: Do you want to hurt yourself or someone else? Patient reports no desire to harm self or others. Onset of symptoms was September 26, 2024. 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 - Infectious Disease History:: Denies. - Social history:: Smoking status: Patient denies any tobacco usage or history of. - Family history:: not pertinent. Screenin:10 [facility] ED Fall Risk Assessment (Adult) History of falling in the last 3 months, vc1 including since admission No falls in past 3 months (0 pts) Confusion or Disorientation No (0 pts) Intoxicated or Sedated No (0 pts) Impaired Gait No (0 pts) Mobility Assist Device Used No (0 pt) Altered Elimination No (0 pt) Score/Fall Risk Level 0 - 2 = Low Risk Oriented to surroundings, Maintained a safe environment, Educated pt \T\ family on fall prevention, incl call for assistance when getting out of bed, Hourly rounding (assess needs \T\ fall precautionary measures) done. Abuse screen: Denies threats or abuse. Nutritional screening: No deficits noted. Tuberculosis screening: No symptoms or risk factors identified. Assessment: 03:30 Reassessment: ASSUMING CARE OF PT. dd2 03:30 General: Appears in no apparent distress. Behavior is calm, cooperative, appropriate dd2 for age. Pain: Complains of pain in anterior aspect of right upper chest and right lateral anterior chest Pain does not radiate. Pain currently is 3 out of 10 on a pain scale. Quality of pain is described as sharp, Pain began 2-3 days ago. Neuro: Houser Agitation-Sedation Scale (RASS): 0 - Alert and Calm Level of Consciousness is awake, alert, obeys commands, Oriented to person, place, time, situation, Appropriate for age. Cardiovascular: Reports chest pain, Heart tones S1 S2 present Patient's skin is warm and dry. Chest pain is described as mild, quality is sharp, is located in right chest wall. Respiratory: Airway is patent Respiratory effort is even, unlabored, Respiratory pattern is regular, symmetrical, Breath sounds are clear bilaterally. GI: No deficits noted. No signs and/or symptoms were reported involving the gastrointestinal system. Abdomen is non-distended, obese. : No deficits noted. No signs and/or symptoms were reported regarding the genitourinary system. EENT: No deficits noted. No signs and/or symptoms were reported regarding the EENT system. Derm: No deficits noted. No signs and/or symptoms reported regarding the dermatologic system. Musculoskeletal: No deficits noted. No signs and/or symptoms reported regarding the musculoskeletal system. Circulation, motion, and sensation intact. Range of motion: intact in all extremities. 04:20 Reassessment: PT LEFT PRIOR TO D/C INSTRUCTIONS AND PRESCRIPTIONS. dd2 Vital Signs: 01:10 Weight 136.98 kg; Height 5 ft. 6 in. ; Pain 6/10; vc1 03:30 BP 125 / 70; Pulse 77; Resp 16; Temp 98.4; Pulse Ox 100% on R/A; dd2 04:20 BP 129 / 74; Pulse 79; Resp 16; Pulse Ox 100% on R/A; dd2 01:10 Body Mass Index 48.74 (136.98 kg, 167.64 cm) vc1 01:10 Pain Scale: Adult vc1 Jennifer Coma Score: 03:30 Eye Response: spontaneous(4). Motor Response: obeys commands(6). Verbal Response: dd2 oriented(5). Total: 15. 0307 01:03 Eye Response: spontaneous(4). Motor Response: obeys commands(6). Verbal Response: sp4 oriented(5). Total: 15. ED Course: 09/28 00:54 Patient arrived in ED. gm2 01:09 Jefferson Brown MD is Attending Physician. sp4 01:39 XRAY Chest (1 view) In Process Unspecified. EDMS 02:41 DIMA SANZ, RN is Primary Nurse. dd2 02:55 Triage completed. vc1 02:57 Arm band placed on right wrist. vc1 03:30 Patient has correct armband on for positive identification. Bed in low position. Call dd2 light in reach. Side rails up X 1. Client placed on continuous cardiac and pulse oximetry monitoring. NIBP monitoring applied. 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 Door closed. Noise minimized. Warm blanket given. Pillow given. Verbal reassurance given. 03:30 Provided Education on: RESULT TIMES. dd2 03:30 No provider procedures requiring assistance completed. Initial lab(s) drawn, by ED dd2 staff, sent to lab. EKG done, by ED staff, reviewed by Jefferson Brown MD. Inserted saline lock: 22 gauge in left antecubital area, using aseptic technique. Blood collected. Flushed with 10 mL NS. Patient maintains SpO2 saturation greater than 95% on room air. 05:08 IV discontinued, intact, bleeding controlled, No redness/swelling at site. Pressure dd2 dressing applied. Administered Medications: 05:04 Not Given (pt left prior to meds): [id number] mg PO once dd2 05:04 Not Given (pt left prior to meds): [id number] mg PO once dd2 05:04 Not Given (pt left prior to meds): cbeyxjwva603 mg PO once dd2 Medication: 02:58 VIS not applicable for this client. vc1 Outcome: 04:42 Discharge ordered by spLevy 05:07 Discharged to home ambulatory, dd2 05:07 Condition: stable 05:07 Discharge instructions given to PT LEFT PRIOR TO D/C PACKET 05:08 Patient left the ED. dd2 Signatures: Dispatcher [employer] EDMS Chloe Romo RN RN vc1 Jefferson Brown MD MD sp4 Camilla Pritchard gm2 DIMA SANZ RN RN dd2 Corrections: (The following items were deleted from the chart) 02:57 01:10 PMHx: degenerative disk (depressive disorder); vc1 vc1
[2024-09-28] MEDS ORDERED: AZITHROMYCIN 250 MG TAB ONE (04:56)
[2024-09-28] MEDS ORDERED: predniSONE 20 MG TAB ONE (04:56)
[2024-09-28] MEDS ORDERED: IBUPROFEN 400 MG TAB ONE (04:56)
[2024-09-28] MEDS ORDERED: IBUPROFEN 200 MG TAB PO ONE (04:56)
[2024-09-28 05:13] VITALS: TEMP 98.4; O2SAT 100
[2024-09-28 05:14] VITALS: BP 129/74
--- NOTE | 2024-09-28 05:46 | RAD REPORT ---
EXAM: XR Chest, 1 View CLINICAL HISTORY: The patient is 24 years old and is Female; CHEST PAIN TECHNIQUE: Frontal view of the chest. COMPARISON: No relevant prior studies available. FINDINGS: Lungs: Unremarkable. No consolidation. Pleural space: Unremarkable. No pneumothorax. Heart: Unremarkable. Mediastinum: Unremarkable. Normal mediastinal contour. Bones/joints: No acute findings. IMPRESSION: No acute findings in the chest. Electronically signed by: Mika Cabrera MD 09/28/2024 02:31 AM [facility] 8 Due to temporary technical issues with the PACS/RUSBASE reporting system, reports are being ab d by the in-house radiologist without review as a courtesy to ensure prompt reporting the interpreting radiologist is fully responsible for the content of the report. Transcribed Date/Time: 09/28/2024 5:45 AM
== END 2024-09-28 05:08 | disposition home or self-care (01) ==
LOC: ER 00:50
DX: R09.1 Pleurisy (principal); R79.82 Elevated C-reactive protein (CRP)
CPT/HCPCS: 36415; 71045; 80048; 80076; 80307; 81025; 83735; 83880; 84439; 84443; 84484; 85025; 85610; 86140; 93005; 99284; J7512

== ENCOUNTER 2025-02-27 22:36 | Emergency (ER) | payer OTHER, SELFPAY ==
--- OUTSIDE RECORDS SUMMARY | 2025-02-27 22:40 | XMS REPORT | Continuity of Care Document ---
Author Name Unknown Address [address] [facility] [address] [place] [address] [facility] [place] Address [address] [facility] 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 Name Role Phone Donna Smith Primary Care Physician [phone] SANTOS MADSEN Attending Clinician Unavailable [id number] Attending Clinician Unavailable LATISHA MCKENNA Attending Clinician Unavailab le LAB47 Attending Clinician Unavailable CATE VICKERS Attending Clinician Unavailable WALESKA BOLANOS Attending Clinician Unavailgiovanni HDZ MD Attending Clinician Unavailab SANTIAGO He Attending Clinician Unavailable CATALINA MOLINA Attending Clinician Unavail able ANDREW DUFFY Attending Clinician Unavailabl e LAB90 Attending Clinician Unavailable LINDA MINER Attending Clinician Unavaila FERN Nguyen Attending Clinician Unavailable CHUCKY CATALAN Attending Clinician Unavailable Kiara Vora NP Attending Clinician [phone] KIARA VORA Attending Clinician Unavailab le 2, [facility] Attending Clinician Unavailable PER SANDERS Attending Clinician UnavailPER Brock Attending Clinician UnavailTamy Nova MD Attending Clinician [phone] SANTA LINK Attending Clinician Unavailable Santa Link MD Attending Clinician Doctor Unassigned, [place]row Attending Clinician U navailable LUBA GAMBLE Attending Clinician Unavailable Luba Cespedes Attending Clinician ROMEL FIGUEROA Attending Clinician UnavailRomel Rodarte MD Attending Clinician SIMÓN AGUILERA Attending Clinician Unavailable Payers Payer Name Policy Type Policy Number Effective Date Expirati on Date Source KEKAHA Medardo [facility] 94 [id number] 2024 00:00:00 [facility] JACQUI-JORDAN ROY-C COPAY FOCUS 9 [id number] 2023 00:00:00 Problems Condition Name Condition Details Condition Category Status Onset Date Resolution Date Last Treatment Date Treating Clinician Comments Source Well adult exam Well adult exam Disease Active -18 00:00: 00 Jacqui Mcdonaldold - Externa l Bipolar affective disorder, remission status unspecifie d (multi HCC) Bipolar affective disorder, remission status unspecifie d (multi HCC) Disease Active 18 00:00: 00 Jacqui Seybold - Externa l Chronic bilateral low back pain without sciatica Chronic bilateral low back pain without sciatica Disease Active 4-25 00:00: 00 Jacqui ybold - Externa l Vaginal odor Vaginal odor Disease Active 6- 00:00: 00 [facility] BMI 45.0-49.9, adult BMI 45.0-49.9, adult Disease Active 6-11 00:00: 00 [facility] Generalize d anxiety disorder Generalize d anxiety disorder Disease Active 2-09 00:00: 00 [facility] Attention deficit hyperactiv ity disorder, 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, predominan tly inattentiv e type Disease Active 3-14 00:00: 00 [facility] Bipolar disorder Bipolar disorder Disease Active 7-19 00:00: 00 [facility] No known active problems No known active problems Disease [facility] Current mild episode of major depressive disorder without prior episode Current mild episode of major depressive disorder without prior episode Disease Active Jacqui Sedorothyold - Externa l Morbid obesity Morbid obesity Disease Active Jacqui Sedorothyold - Externa l Depression Depression Disease Active Deepak aparicio Sedorothyold - Externa l Anxiety Anxiety Disease Active Jacqui Seybold - Externa l Obesity Obesity Disease Active Jacqui Seybold - Externa l Allergies, Adverse Reactions, Alerts Allergy Name Allergy Type Status Severity Reaction(s) Onset Date Inactive Date Treating Clinician Comments Source NO KNOWN ALLERGIE S Drug Class Active [facility] Social History Social Habit Start Date Stop Date Quantity Comments Source Gender identity [facility] Sexual orientation Deepak aparicio Jordan - External ASSERTION Not Jacqui Ortega - External History of Occupation Jacqui Ortega - External Alcoholic beverage intake 2024-10-05 00:00:00 2024-10-05 00:00:00 Current drinker of alcohol (finding) Jacqui Ortega - External History of Social function 2023-11-18 00:00:00 2023-11-18 00:00:00 Jacqui Ortega - External Education 2023-11-18 00:00:00 2023-11-18 00:00:00 17 Jacuqi Ortega - External Alcohol Comment 2023-11-18 00:00:00 2023-11-18 00:00:00 occasionally Jacqui Ortega - External Tobacco use and exposure 2023-11-17 00:00:00 2023-11-17 00:00:00 Smokeless tobacco non-user Jacqui Ortega - External Sex 2023-08-25 09:51:47 2023-08-25 09:51:47 Female (finding) Jacqui Ortega - External Alcohol intake 2023-06-01 00:00:00 2023-06-01 00:00:00 Lifetime non-drinker (finding) [facility] Exposure to SARS-CoV-2 (event) 2022-11-15 00:00:00 2022-11-25 15:02:[address] [facility] Sex assigned at 2000 00:00:00 2000 00:00:00 Jacqui Ortega - External Smoking Status Start Date Stop Date Source Unknown if ever smoked [facility] Never smoked tobacco Jacqui Ortega Medications Ordered Medication Name Filled Medication Name Start Date Stop Date Current Medication? Ordering Clinician Indication Dosage Frequency Signature (SIG) Comments Components Source Bupropion HCL XL 150 MG OR TB24 08-29 00:00: 00 Yes [id number] 150mg QD Take 1 tablet (150 mg total) by mouth daily. Jacqui parker Topiramate 100 MG oral Tablet 08-29 00:00: 00 Yes [id number] 100mg Q.5D Take 1 tablet (100 mg total) by mouth 2 times daily. Jacqui parker Tizanidine HCl 2 MG oral Tablet 08-29 00:00: 00 Yes [id number] 2mg QD Take 1 tablet (2 mg total) by mouth daily as needed for muscle spasms. Jacqui parker Topiramate 100 MG oral Tablet 07-27 00:00: 00 08-29 00:00 :00 No [id number] 104 100mg Q.5D Take 1 tablet by mouth twice daily Jacqui parkre Amoxicillin (AMOXIL) 500 MG oral Capsule 2023-07 2-13 00:00: 00 08-29 00:00 :00 No [id number] 500mg [id number] 3D Take 1 capsule (500 mg total) by mouth 3 times daily. Jacqui parker Metronidazo le (Flagyl) 500 MG oral Tablet 2023-07 0-31 00:00: 00 05-29 00:00 :00 No [id number] 500mg Q.5D Take 1 tablet (500 mg total) by mouth 2 times daily for 7 days. Jacqui parker Tizanidine HCl 2 MG oral Tablet 2023-07 00:00: 00 08-29 00:00 :00 No [id number] 2mg Take 1 tablet (2 mg total) by mouth every 12 hours as needed. Jacqui parker Tramadol HCl (ULTRAM) 50 MG oral Tablet 2023-07 00:00: 00 08-29 00:00 :00 No [id number] 50mg Take 1 tablet (50 mg total) by mouth every 12 hours as needed for pain. Jacqui parker Topiramate 100 MG oral Tablet 2023-07 00:00: 00 Yes [id number] 104 100mg Q.5D Take 1 tablet (100 mg total) by mouth 2 times daily. Jacqui parker Topiramate 25 MG oral Tablet 01-10 00:00: 00 Yes [id number] 104 25mg Take 1 tablet (25 mg total) by mouth 2 times daily. Jacqui parker Bupropion HCL XL 150 MG OR TB24 11-17 00:00: 00 01-10 00:00 :00 No [id number] 150mg Take 1 tablet (150 mg total) by mouth every morning. Jacqui parker Topiramate 25 MG oral Tablet 11-17 00:00: 00 01-10 00:00 :00 No [id number] 104 25mg Take 1 tablet (25 mg total) by mouth daily. Jacqui parker Aripiprazol e 5 MG oral Tablet 2022-07 00:00: 00 11-17 00:00 :00 No 5mg Take 1 tablet (5 mg total) by mouth daily. Jacqui parker semaglutide , weight loss, (WEGOVY) 0.25 mg/0.5 mL PnIj SC injection 2022-07 00:00: 00 07-03 05:59 :00 No [id number] .25mg inject 0.25 mg under the skin weekly for 30 days. 1st dose [facility] semaglutide , weight loss, (WEGOVY) 0.5 mg/0.5 mL PnIj SC injection 2022-07 00:00: 00 07-03 05:59 :00 No [id number] .5mg inject 0.5 mg under the skin weekly for 30 days. 2nd dose [facility] semaglutide , weight loss, (WEGOVY) 1 mg/0.5 mL PnIj SC injection 2022-07 00:00: 00 07-03 05:59 :00 No [id number] 1mg inject 1 mg under the skin weekly for 30 days. 3rd dose [facility]BLOOD PRESS[facility] CUFF[facility] [place]-06 00:00: 00 Yes [id number] Blood pressure check twice a day and as needed. [facility] Bupropion HCL XL 300 MG OR TB24 04-06 00:00: 00 11-17 00:00 :00 No 300mg Take 1 tablet (300 mg total) by mouth daily. Jacqui parker ARIPiprazol e (ABILIFY) 2 mg tablet 04-06 00:00: 00 06-02 00:00 :00 No [id number] 2mg Take 1 tablet by mouth in the morning. [facility] naltrexone 50 mg tablet 01-04 00:00: 00 06-01 00:00 :00 No [id number] 50mg Take 1 tablet by mouth in the morning. [facility] buPROPion XL 150 mg 24 hr tablet 01-04 00:00: 00 04-06 00:00 :00 No [id number] 150mg Take 1 tablet by mouth in the morning. [facility] cariprazine (VRAYLAR) 1.5 mg Cap 01-01 15:20: 51 01-01 00:00 :00 No Vraylar 1.5 mg capsule Take 1 capsule every day by oral route at bedtime for 30 days. [facility] metroNIDAZO LE 500 mg tablet 12-28 00:00: 00 01-05 04:59 :00 No [id number] 500mg Take 1 tablet by mouth every 12 (twelve) hours for 7 days. [facility] terconazole 80 mg vaginal suppository 05 00:00: 00 04-06 00:00 :00 No [id number] 80mg Insert 1 Suppositor y into vagina at bedtime. [facility] cariprazine (VRAYLAR) 1.5 mg Cap 5-03 15:34: 08 Yes Vraylar 1.5 mg capsule Take 1 capsule every day by oral route at bedtime for 30 days. [facility] Nitrofurant oin&Nit. Macrocryst 100 mg capsule 2-05 00:00: 00 01-01 00:00 :00 No [id number] 100mg Take 1 capsule by mouth in the morning and 1 capsule in the evening. [facility] No known medications 2020-07 10:02: 56 No [facility] cariprazine (VRAYLAR) 1.5 mg Cap 2020-07 10:02: 11 Yes Vraylar 1.5 mg capsule Take 1 capsule every day by oral route at bedtime for 30 days. [facility] methylPREDN ISolone (MEDROL, HANNY,) 4 mg tablets 2020-07 00:00: 00 01-01 00:00 :00 No [id number] 84mg Take 21 tablets by mouth SEE-INSTRU CTIONS. follow package directions [facility] busPIRone 15 mg tablet 2020-07 0- 00:00: 00 01-01 00:00 :00 No [facility] Immunizations Ordered Immunization Name Filled Immunization Name Date Status Comments Source Influenza Virus Vaccine Quad IM, Preserv and ABX Free 6 MO-64 YRS (FLUCELVAX) Unknown Completed [facility] TDAP Unknown Completed [facility] HPV9 Unknown Completed [facility] DTAP Unknown Completed [facility] Hep B, Adol or Pedi Dosage Unknown Completed [facility] Heamophilus Influenza B Unknown Completed [facility] IPV Unknown Completed [facility] MMR Unknown Completed [facility] Pneumococcal 7 Conjugate, PCV7 (Prevnar7) Unknown Completed [facility] Varicella (varivax)(chicken pox) Unknown Completed [facility] SARS-COV-2 COVID-19 VACCINE - (MODERNA) Unknown Completed [facility] DTaP, Unspecified Formulation Unknown Completed [facility] Meningococcal Polysaccharide (groups A, C, Y and W-135) conjugate vaccine (MCV4P) Unknown Completed [facility] Meningococcal B, OMV Unknown Completed [facility] HPV Unknown Completed [facility] HEPATITIS A Unknown Completed [facility] Influenza Virus Vaccine Quad IM, Preserv and ABX Free 6 MO-64 YRS (FLUCELVAX) Unknown Completed [facility] TDAP Unknown Completed [facility] HPV9 Unknown Completed [facility] DTAP Unknown Completed [facility] Hep B, Adol or Pedi Dosage Unknown Completed [facility] Heamophilus Influenza B Unknown Completed [facility] IPV Unknown Completed [facility] MMR Unknown Completed [facility] Pneumococcal 7 Conjugate, PCV7 (Prevnar7) Unknown Completed [facility] Varicella (varivax)(chicken pox) Unknown Completed [facility] SARS-COV-2 COVID-19 VACCINE - (MODERNA) Unknown Completed [facility] DTaP, Unspecified Formulation Unknown Completed [facility] Meningococcal Polysaccharide (groups A, C, Y and W-135) conjugate vaccine (MCV4P) Unknown Completed [facility] Meningococcal B, OMV Unknown Completed [facility] HPV Unknown Completed [facility] HEPATITIS A Unknown Completed [facility] DTaP Unknown Completed Jacqui helton - External DTaP Unspecified Unknown Completed Jin Ortega - External Influenza, Injectable, Mdck, Preservative Free, Quadrivalent Unknown Completed Jacqui Gonzales External HEPATITIS A- PEDI/ADOL Unknown Completed Jacqui Ortega - External Hepatitis B, Adolescent Or Pediatric Unknown Completed Jacqui Ortega - External HIB- Haemophilus Influenzae Type B Unknown Completed Jacqui helton - External HPV 4 (Human Papillomavirus) Unknown Completed Jacqui wilcox - External HPV 9 (Human Papillomavirus) Unknown Completed Jacqui wilcox - External Meningococcal Vaccine- Conjugate(Menactra) Unknown Completed Jacqiu soliman - External Bexsero (Meningococcal Group B) Unknown Completed Jacqui Gonzales External MMR- Measles, Mumps, Rubella Unknown Completed Jacqui Gonzales External Pneumococcal Vaccine, Conjugate 7 Unknown Completed Jacqui Seybold - External IPV- Inactivated Polio Vaccine [facility] Tdap- (Boostrix, Adacel) Unknown Completed [facility] - External Varicella Vaccine Unknown Completed Kris florey Seybold - External DTaP Unknown Completed Jacqui jocelyn bold - External DTaP Unspecified Unknown Completed [facility] Seybold - External Influenza, Injectable, Mdck, Preservative Free, Quadrivalent Unknown Completed [facility]bold - External HEPATITIS A- PEDI/ADOL Unknown [facility] External Hepatitis B, Adolescent Or Pediatric Unknown [facility] External HIB- Haemophilus Influenzae Type B Unknown Completed [facility] bold - External HPV 4 (Human Papillomavirus) Unknown Completed [facility] ld - External HPV 9 (Human Papillomavirus) Unknown Completed [facility] ld - External Meningococcal Vaccine- Conjugate(Menactra) Unknown Completed [facility] eybold - External Bexsero (Meningococcal Group B) Unknown [facility] External MMR- Measles, Mumps, Rubella Unknown [facility] - External Pneumococcal Vaccine, Conjugate 7 Unknown [facility] - External IPV- Inactivated Polio Vaccine Unknown [facility] - External Tdap- (Boostrix, Adacel) Unknown Completed [facility] External Varicella Vaccine Unknown Completed Kris reyes Seybold - External DTaP Unknown Completed Jacqui jocelyn bold - External DTaP Unspecified [facility] Influenza, Injectable, Mdck, Preservative Free, Quadrivalent [facility]- [facility]I/ADOL [facility] Hepatitis B, Adolescent Or Pediatric Unknown [facility] HIB- Haemophilus Influenzae Type B Unknown [facility] - External HPV 4 (Human Papillomavirus) Unknown Completed [facility] ld - External HPV 9 (Human Papillomavirus) Unknown Completed [facility] ld - External Meningococcal Vaccine- Conjugate(Menactra) Unknown Completed [facility] eybold - External Bexsero (Meningococcal Group B) Unknown [facility] - External MMR- Measles, Mumps, Rubella Unknown [facility] - External Pneumococcal Vaccine, Conjugate 7 Unknown [facility] - External IPV- Inactivated Polio Vaccine Unknown [facility] - External Tdap- (Boostrix, Adacel) Unknown Completed [facility] External Varicella Vaccine Unknown Completed Kris chantel Seybold - External DTaP Unknown Completed Jacqui jocelyn bold - External DTaP Unspecified Unknown Completed [facility] linda Rothmanybold - External Influenza, Injectable, Mdck, Preservative Free, Quadrivalent Unknown Completed [facility] External HEPATITIS A- PEDI/ADOL Unknown [facility] B, Adolescent Or Pediatric [facility] HIB- Haemophilus Influenzae Type B Unknown Completed Jacqui Linda helton - External HPV 4 (Human Papillomavirus) Unknown Completed [facility] ld - External HPV 9 (Human Papillomavirus) Unknown Completed [facility] ld - External Meningococcal Vaccine- Conjugate(Menactra) Unknown Completed [facility] eybold - External Bexsero (Meningococcal Group B) Unknown [facility] MMR- Measles, Mumps, Rubella [facility] Pneumococcal Vaccine, Conjugate 7 [facility] IPV- Inactivated Polio Vaccine [facility] Tdap- (Boostrix, Adacel) Unknown Completed [facility] External Varicella Vaccine Unknown Completed Kris reyes Seybold - External DTaP Unknown Completed Jacquilinda helton - External DTaP Unspecified Unknown Completed [facility] linda Rothmanybold - External Influenza, Injectable, Mdck, Preservative Free, Quadrivalent Unknown Completed [facility] - External HEPATITIS A- PEDI/ADOL Unknown [facility] Hepatitis B, Adolescent Or Pediatric [facility] HIB- Haemophilus Influenzae Type B Unknown Completed Jacqui Linda helton - External HPV 4 (Human Papillomavirus) Unknown Completed [facility] ld - External HPV 9 (Human Papillomavirus) Unknown Completed [facility] ld - External Meningococcal Vaccine- Conjugate(Menactra) Unknown Completed [facility] eybold - External Bexsero (Meningococcal Group B) Unknown [facility] External MMR- Measles, Mumps, Rubella Unknown [facility] - External Pneumococcal Vaccine, Conjugate 7 Unknown [facility] - External IPV- Inactivated Polio Vaccine Unknown [facility] Tdap- (Boostrix, Adacel) Unknown [facility] - External Varicella Vaccine Unknown Completed Kris florey Seybold - External DTaP Unknown Completed Jacquilinda Leon bold - External DTaP Unspecified Unknown Completed [facility] ybold - External Influenza, Injectable, Mdck, Preservative Free, Quadrivalent Unknown Completed [facility] - External HEPATITIS A- PEDI/ADOL Unknown Completed [facility] External Hepatitis B, Adolescent Or Pediatric Unknown Completed [facility] - External HIB- Haemophilus Influenzae Type B Unknown Completed [facility] sunitha - External HPV 4 (Human Papillomavirus) Unknown Completed [facility] ld - External HPV 9 (Human Papillomavirus) Unknown Completed [facility] ld - External Meningococcal Vaccine- Conjugate(Menactra) Unknown Completed [facility] eybold - External Bexsero (Meningococcal Group B) Unknown [facility] MMR- Measles, Mumps, Rubella Unknown Completed [facility] External Pneumococcal Vaccine, Conjugate 7 Unknown Completed [facility] External IPV- Inactivated Polio Vaccine Unknown Completed [facility] External Tdap- (Boostrix, Adacel) Unknown Completed [facility] External Varicella Vaccine Unknown Completed Kris reyes Seybold - External DTaP Unknown Completed Jacquilinda Leon bold - External DTaP Unknown Completed [facility] bold - External DTaP Unspecified Unknown Completed Jin rothman old - External Influenza, Injectable, Mdck, Preservative Free, Quadrivalent Unknown Completed [facility] - External HEPATITIS A- PEDI/ADOL Unknown Completed [facility] External Hepatitis B, Adolescent Or Pediatric Unknown Completed [facility] - External HIB- Haemophilus Influenzae Type B Unknown Completed [facility] sunitha - External HPV 4 (Human Papillomavirus) Unknown Completed [facility] ld - External HPV 9 (Human Papillomavirus) Unknown Completed [facility] ld - External Meningococcal Vaccine- Conjugate(Menactra) Unknown Completed [facility] eybold - External Bexsero (Meningococcal Group B) Unknown [facility] - External MMR- Measles, Mumps, Rubella Unknown Completed [facility] - External Pneumococcal Vaccine, Conjugate 7 [facility] IPV- Inactivated Polio Vaccine Unknown Completed [facility] - External Tdap- (Boostrix, Adacel) Unknown Completed [facility] - External Varicella Vaccine [facility] bold - External DTaP Unspecified Unknown Completed [facility] - External Influenza, Injectable, Mdck, Preservative Free, Quadrivalent Unknown Completed [facility] - External HEPATITIS A- PEDI/ADOL Unknown Completed [facility] External Hepatitis B, Adolescent Or Pediatric Unknown Completed [facility] - External HIB- Haemophilus Influenzae Type B Unknown Completed [facility] External HPV 4 (Human Papillomavirus) Unknown Completed [facility] - External DTaP Unspecified Unknown Completed [facility] External HPV 9 (Human Papillomavirus) Unknown Completed [facility] - External Meningococcal Vaccine- Conjugate(Menactra) Unknown Completed [facility] eybold - External Bexsero (Meningococcal Group B) Unknown Completed [facility] External MMR- Measles, Mumps, Rubella Unknown Completed [facility] External Pneumococcal Vaccine, Conjugate 7 Unknown Completed [facility] External IPV- Inactivated Polio Vaccine Unknown Completed [facility] External Tdap- (Boostrix, Adacel) Unknown Completed [facility] External Varicella Vaccine Unknown Completed [facility] - External Influenza, Injectable, Mdck, Preservative Free, Quadrivalent Unknown Completed [facility] External HEPATITIS A- PEDI/ADOL Unknown Completed [facility] External Hepatitis B, Adolescent Or Pediatric Unknown Completed [facility] External HIB- Haemophilus Influenzae Type B Unknown Completed [facility] sunitha External HPV 4 (Human Papillomavirus) Unknown Completed [facility] - External HPV 9 (Human Papillomavirus) Unknown Completed [facility] - External Meningococcal Vaccine- Conjugate(Menactra) Unknown Completed [facility] - External Bexsero (Meningococcal Group B) Unknown [facility] MMR- Measles, Mumps, Rubella Unknown Completed [facility] - External Pneumococcal Vaccine, Conjugate 7 Unknown Completed [facility] - External IPV- Inactivated Polio Vaccine Unknown Completed [facility] - External Tdap- (Boostrix, Adacel) Unknown Completed [facility] External Varicella Vaccine Unknown Completed Ke lsey Seybold - External Vital Signs Vital Name Observation Time Observation Value Comments S ource Systolic blood pressure 2024-10-05 20:28:00 110 mm[Hg] Jacqui Seybo ld - External Diastolic blood pressure 2024-10-05 20:28:00 82 mm[Hg] Jacqui Seybo ld - External Heart rate 2024-10-05 20:28:00 87 /min Kelse y Seybold - External Body temperature 2024-10-05 20:28:00 36.61 Nadia Jacqui [facility] - External Respiratory rate 2024-10-05 20:28:00 18 /min Jacqui Seybold - External Body height 2024-10-05 20:28:00 167.6 cm Rosa ey [facility] - External Body weight 2024-10-05 20:28:00 136.351 kg Rosa ey [facility]bold - External BMI 2024-10-05 20:28:00 48.52 kg/m2 Rosa ey Seybold - External Oxygen saturation in Arterial blood by Pulse oximetry 2024-10-05 20:28:00 98 /min Jacqui Seybo ld - External Systolic blood pressure 2024-08-29 14:37:00 118 mm[Hg] Jacqui Seybo ld - External Diastolic blood pressure 2024-08-29 14:37:00 78 mm[Hg] Jacqui Seybo ld - External Heart rate 2024-08-29 14:37:00 88 /min Jinse y Seybold - External Body temperature 2024-08-29 14:37:00 37.17 Nadia Jacqui Seybold - External Respiratory rate 2024-08-29 14:37:00 18 /min Jacqui Seybold - External Body height 2024-08-29 14:37:00 167.6 cm Rosa ey [facility]bold - External Body weight 2024-08-29 14:37:00 138.075 kg Rosa ey [facility]bold - External BMI 2024-08-29 14:37:00 49.13 kg/m2 Rosa ey Seybold - External Oxygen saturation in Arterial blood by Pulse oximetry 2024-08-29 14:37:00 100 /min Jacqui Seybo ld - External Systolic blood pressure 2024-07-06 [...] - External BMI 2024-05-17 15:12:00 50.52 kg/m2 Rosa ey Seybold - External Oxygen saturation in Arterial blood by Pulse oximetry 2024-05-17 15:12:00 99 /min Jacqui Seybo ld - External Systolic blood pressure 2024-01-11 19:46:00 122 mm[Hg] Jacqui Seybo ld - External Diastolic blood pressure 2024-01-11 19:46:00 81 mm[Hg] Jacqui Seybo ld - External Heart rate 2024-01-11 19:46:00 84 /min Kelse y Seybold - External Body temperature 2024-01-11 19:46:00 37.22 Andia Jacqui [facility] - External Respiratory rate 2024-01-11 19:46:00 13 /min Jacqui [facility] - External Body height 2024-01-11 19:46:00 167.6 cm Rosa ey [facility] - External Body weight 2024-01-11 19:46:00 146.058 kg Rosa ey [facility] - External BMI 2024-01-11 19:46:00 51.97 kg/m2 Rosa ey [facility]bold - External Oxygen saturation in Arterial blood by Pulse oximetry 2024-01-11 19:46:00 98 /min Jacqui Seybo ld - External Systolic blood pressure 2023-11-18 18:56:00 118 mm[Hg] Jacqui Seybo ld - External Diastolic blood pressure 2023-11-18 18:56:00 68 mm[Hg] Jacqui Seybo ld - External Heart rate 2023-11-18 18:56:00 [...] Systolic blood pressure 2023-06-01 20:25:00 148 mm[Hg] [facility] Diastolic blood pressure 2023-06-01 20:25:00 97 mm[Hg] [facility] Heart rate 2023-06-01 20:23:00 84 /min [facility] Body temperature 2023-06-01 20:23:[address] [facility] Respiratory rate 2023-06-01 20:23:00 16 /min [facility] Body height 2023-06-01 20:23:00 168.9 cm [facility] Body weight 2023-06-01 20:23:00 134.31 kg [facility] BMI 2023-06-01 20:23:00 47.08 kg/m2 [facility] Oxygen saturation in Arterial blood by Pulse oximetry 2023-06-01 20:23:00 100 /min [facility] Systolic blood pressure 2023-04-06 19:19:00 168 mm[Hg] [facility] Diastolic blood pressure 2023-04-06 19:19:00 95 mm[Hg] [facility] Heart rate 2023-04-06 19:17:00 89 /min [facility] Body temperature 2023-04-06 19:17:[address] [facility] Respiratory rate 2023-04-06 19:17:00 18 /min [facility] Body height 2023-04-06 19:17:00 167.6 cm [facility] 2023-04-06 19:17:00 134.083 kg [facility] BMI 2023-04-06 19:17:00 47.71 kg/m2 [facility] Oxygen saturation in Arterial blood by Pulse oximetry 2023-04-06 19:17:00 98 /min [facility] Systolic blood pressure 2023-01-01 20:03:00 136 mm[Hg] [facility] Diastolic blood pressure 2023-01-01 20:03:00 87 mm[Hg] [facility] Heart rate 2023-01-01 20:03:00 87 /min [facility] 2023-01-01 20:03:[address] [facility] Body height 2023-01-01 20:03:00 167.6 cm [facility] weight 2023-01-01 20:03:00 137.304 kg [facility] BMI 2023-01-01 20:03:00 48.86 kg/m2 [facility] Oxygen saturation in Arterial blood by Pulse oximetry 2023-01-01 20:03:00 98 /min [facility] Systolic blood pressure 2022-12-28 19:57:00 135 mm[Hg] [facility] Diastolic blood pressure 2022-12-28 19:57:00 84 mm[Hg] [facility] Heart rate 2022-12-28 19:57:00 74 /min [facility] Respiratory rate 2022-12-28 19:57:00 18 /min [facility] Body height 2022-12-28 19:57:00 167.6 cm [facility] Body weight 2022-12-28 19:57:00 138.347 kg [facility] BMI 2022-12-28 19:57:00 49.23 kg/m2 [facility] Diastolic blood pressure 2022-11-25 20:32:00 86 mm[Hg] [facility] Heart rate 2022-11-25 20:32:00 79 /min [facility] Body temperature 2022-11-25 20:32:[address] [facility] Respiratory rate 2022-11-25 20:32:00 18 /min [facility] Body height 2022-11-25 20:32:00 168.9 cm [facility] weight 2022-11-25 20:32:00 137.032 kg Univ [facility] BMI 2022-11-25 20:32:00 48.03 kg/m2 [facility] Systolic blood pressure 2022-11-25 20:32:00 126 mm[Hg] [facility] Systolic blood pressure 2022-08-30 20:45:00 132 mm[Hg] [facility] Diastolic blood pressure 2022-08-30 20:45:00 87 mm[Hg] [facility] Heart rate 2022-08-30 20:45:00 84 /min [facility] Body temperature 2022-08-30 20:45:[address] [facility] Respiratory rate 2022-08-30 20:45:00 16 /min [facility] Body height 2022-08-30 20:45:00 167.6 cm [facility] Body weight 2022-08-30 20:45:00 113.399 kg [facility] BMI 2022-08-30 20:45:00 40.35 kg/m2 [facility] Oxygen saturation in Arterial blood by Pulse oximetry 2022-08-30 20:45:00 100 /min [facility] Systolic blood pressure 2021-07-11 16:04:00 124 mm[Hg] [facility] Diastolic blood pressure 2021-07-11 16:04:00 83 mm[Hg] [facility] Heart rate 2021-07-11 16:04:00 73 /min [facility] Body height 2021-07-11 16:04:00 167.6 cm [facility] Body weight 2021-07-11 16:04:00 127.914 kg [facility] BMI 2021-07-11 16:04:00 45.52 kg/m2 [facility] Body mass index (BMI) [Percentile] Per age and sex 2021-07-11 16:04:00 98.95 % [facility] Procedures Procedure Date / Time Performed Performing Clinician Source FLU VACC ([id number]), 6 MO-64 YRS, .5ML, IM, QUAD (FLUCELVAX) 2023-06-01 20:32:[address] [facility] FREE T4 2023-01-01 21:14:00 [facility] HORMONE 2023-01-01 21:14:[address] [facility] COMP. METABOLIC PANEL (45237) 2023-01-01 21:14:[address] [facility] LIPID PANEL (78533)(TOTAL CHOLESTEROL, TRIGLYCERIDES, HDL) 2023-01-01 21:14:[address] [facility] CBC WITH DIFF 2023-01-01 21:14:00 [facility] GLYCOSYLATED HEMOGLOBIN (A1C) 2023-01-01 21:14:[address] [facility] FREE T3 2023-01-01 21:14:00 [facility] OF BENEFITS 2022-11-25 20:00:05 Docto r Unassigned, [place] [facility] POCT URINALYSIS W/O SPECIFIC GRAVITY 2022-11-25 00:00:[address] [facility] URINALYSIS 2022-08-30 21:01:00 Luba Gamble [facility] NOTICE OF PRIVACY PRACTICES 2022-08-30 20:40:12 Doctor Unassigned, [place] [facility] CONSENT/REFUSAL FOR DIAGNOSIS AND TREATMENT 2022-08-30 20:39:45 Doctor Unassigned, [place] [facility] XR HAND 3+ VW LEFT 2021-07-11 16:22:[address] [facility] REFERRAL- REQUEST/RESPONSE 2021-07-10 06:01:00 Doctor Unassigned, [place] [facility] Encounters Start Date/Time End Date/Time Encounter Type Admission Type Attending [facility] Care Facility Care Department Encounter ID Source 2025-01-05 08:15:00 2025-01-05 08:15:00 Outpatient SANTOS MADSEN [id number] Jacqui Ortega 2024-10-25 00:00:00 2024-10-25 00:00:00 Outpatient SANTOS MADSEN [id number] Jacqui Ortega 2024-10-17 08:45:00 2024-10-17 08:45:00 Outpatient SANTOS MADSEN JACQUI CALDWELL [id number] Jacqui Ortega 2024-10-05 15:30:00 2024-10-05 15:30:00 Outpatient SANTOS MADSENLINDA CALDWELL [id number] Jacqui Ortega 2024-08-29 09:10:00 2024-08-29 09:10:00 Outpatient SOV455 JACQUI CALDWELL [id number] Jacqui Ortega 2024-08-29 08:30:00 2024-08-29 08:30:00 Outpatient SANTOS MADSEN JACQUI CALDWELL [id number] Jacqui Rothmanybsalome 2024-07-24 00:00:00 2024-07-24 00:00:00 Outpatient SANTOS MADSEN JACQUI CALDWELL [id number] Jacqui Ortega 2024-07-18 11:00:00 2024-07-18 11:00:00 Outpatient LATISHA MCKENNA [id number] Jacqui Rothmanybsalome 2024-07-06 15:00:00 2024-07-06 15:00:00 Outpatient LAB47 JACQUI CALDWELL [id number] Jacqui Seybsalome 2024-07-06 14:30:00 2024-07-06 14:30:00 Outpatient CATE VICKERS [id number] Jacqui Seybsalome 2024-07-05 10:28:00 2024-07-05 10:28:00 Outpatient LATISHA MCKENNA [id number] Jacqui Seybsalome 2024-06-28 08:30:00 2024-06-28 08:30:00 Outpatient WALESKA BOLANOS [id number] Jacqui Seybold 2024-06-28 00:00:00 2024-06-28 00:00:00 Outpatient MD JACQUI IQBAL [id number] Jaqcui Seybold 2024-06-12 16:00:00 2024-06-12 16:00:00 Outpatient SANTIAGO TUTTLE [id number] Jacqui Seybold 2024-06-08 10:30:00 2024-06-08 10:30:00 Outpatient LATISHA MCKENNA JACQUI CALDWELL [id number] [facility] 2024-06-07 00:00:00 2024-06-07 00:00:00 Outpatient TRACY CATALINA CALDWELL [id number] Jacqui Seybold 2024-06-01 00:00:00 2024-06-01 00:00:00 Outpatient CATALINA MOLINA [id number] [facility] 2024-05-29 11:15:00 2024-05-29 11:15:00 Outpatient SANTOS MADSEN [id number] [facility] 2024-05-22 00:00:00 2024-05-22 00:00:00 Outpatient CATALINA MOLINA [id number] [facility] 2024-05-19 11:00:00 2024-05-19 11:00:00 Outpatient CATALINA MOLINA [id number] [facility] 2024-05-19 00:00:00 2024-05-19 00:00:00 Outpatient MD JACQUI IQBAL [id number] [facility] 2024-05-17 10:15:00 2024-05-17 10:15:00 Outpatient ANDREW DUFFY [id number] [facility] 2024-04-26 00:00:00 2024-04-26 00:00:00 Outpatient SANTOS MADSEN [id number] Jacqui Seybold 2024-04-25 15:05:00 2024-04-25 15:05:00 Outpatient KATINA CALDWELL [id number] Jacqui Seybold 2024-04-24 00:00:00 2024-04-24 00:00:00 Outpatient SANTOS MADSEN [id number] Jacqui Seybold 2024-04-21 14:15:00 2024-04-21 14:15:00 Outpatient LINDA MINER [id number] Jacqui Seybold 2024-04-20 15:30:00 2024-04-20 15:30:00 Outpatient CICI, WALESKA CALDWELL JACQUI [id number] [facility] 2024-04-12 15:30:00 2024-04-12 15:30:00 Outpatient PREZAS, SANTOS CALDWELL JACQUI [id number] Jacqui Seybold 2024-03-22 13:30:00 2024-03-22 13:30:00 Outpatient CICIWALESKA JACQUI [id number] Jacqui Seybold 2024-03-20 11:00:00 2024-03-20 11:00:00 Outpatient MAC, FERN JACQUI CALDWELL [id number] [facility] 2024-03-18 00:00:00 2024-03-18 00:00:00 Outpatient PREZAS, SANTOS LACYLINDA CALDWELL [id number] [facility] 2024-03-14 00:00:00 2024-03-14 00:00:00 Outpatient PREZAS, SANTOS JACQUI CALDWELL [id number] [facility] 2024-03-08 00:00:00 2024-03-08 00:00:00 Outpatient PREZAS, SANTOS LACYLINDA CALDWELL [id number] [facility] 2024-02-10 16:00:00 2024-02-10 16:00:00 Outpatient CICI, WALESKA CALDWELL JACQUI [id number] [facility] 2024-01-24 14:45:00 2024-01-24 14:45:00 Outpatient OU, CHUCKY JACQUI CALDWELL [id number] [facility] 2024-01-17 00:00:00 2024-01-17 00:00:00 Outpatient PREZAS, SANTOS JACQUI CALDWELL [id number] Ajcqui Seybold 2024-01-11 15:00:00 2024-01-11 15:00:00 Outpatient PREZAS, SANTOS JACQUI CALDWELL [id number] Jacqui Seybold 2023-11-19 11:00:00 2023-11-19 11:00:00 Outpatient JACQUI CALDWELL [id number] Jacqui Seybold 2023-11-19 10:55:00 2023-11-19 10:55:00 Outpatient JACQUI CALDWELL [id number] [facility] 2023-11-19 10:50:00 2023-11-19 10:50:00 Outpatient JACQUI CALDWELL [id number] Jacqui Ortega 2023-11-18 14:45:00 2023-11-18 14:45:00 Outpatient LAB90 JACQUI CALDWELL [id number] Jacqui Ortega 2023-11-18 14:00:00 2023-11-18 14:00:00 Outpatient SANTOS MADSEN [id number] Jacqui [facility] 2023-06-08 00:00:00 2023-06-08 00:00:00 Telephone Kiara Vora [facility] 1.2.840.114 350.1.13.10 4.2.7.2.686 [id number] [facility] 2023-06-01 14:30:00 2023-06-01 16:45:24 Outpatient R KIARA VORA KIARA [facility] [id number] [facility] 2023-06-01 14:30:00 2023-06-01 16:45:24 Office Visit Kiara V[facility] 1.2.840.114 350.1.13.10 4.2.7.2.686 [id number] [facility] 2023-04-06 14:30:00 2023-04-06 15:05:46 Office Visit Kiara Vora [facility] 1.2.840.114 350.1.13.10 4.2.7.2.686 [id number] [facility] 2023-04-06 14:30:00 2023-04-06 15:05:46 Outpatient R KIARA VORA KIARA [facility] [id number] [facility] 2023-01-01 16:15:00 2023-01-01 16:30:00 Garment Sorter Visit 2, Adc Lab Kiara Vora [facility] 1.2840.114 350.1.13.10 4.2.7.2.686 [id number] [facility] 2023-01-01 15:00:00 2023-01-01 15:58:57 Outpatient R KIARA VORA OGECHUKWU [facility] [id number] [facility] 2023-01-01 15:00:00 2023-01-01 15:58:57 Office Visit Kiara Vora [facility] 1.2840.114 350.1.13.10 4.2.7.2.686 [id number] [facility] 2022-12-28 15:00:00 2022-12-28 15:07:56 Outpatient R PER SANDERSSERGIOPER SHELTON [facility] [id number] [facility] 2022-12-28 15:00:00 2022-12-28 15:07:56 Office Visit Per Sanders [facility] 1.2840.114 350.1.13.10 4.2.7.2.686 [id number] [facility] 2022-12-02 00:00:00 2022-12-02 00:00:00 [facility] 1.2.840.114 350.1.13.10 4.2.7.2.686 [id number] [facility] 2022-11-27 00:00:00 2022-11-27 00:00:00 Telephone [facility] 1.2840.114 350.1.13.10 4.2.7.2.686 [id number] [facility] 2022-11-25 15:00:00 2022-11-25 16:58:37 Outpatient R SANTA LINK [facility] [id number] [facility] 2022-11-25 15:00:00 2022-11-25 15:30:00 Office Visit Nikolay Santa Parker [facility] 1.0.114 350.1.13.10 4.2.7.2.686 [id number] [facility] 2022-11-25 00:00:00 2022-11-25 00:00:00 Orders Only Doctor Unassigned, [place] [facility] 1.0.114 350.1.13.10 4.2.7.2.686 [id number] [facility] 2022-08-30 14:47:00 2022-08-30 16:49:00 Emergency X [facility] E[facility] [id number] [facility] 2022-08-30 14:47:00 2022-08-30 16:49:00 Emergency Luba Gamble [facility] 1.0.114 350.1.13.10 4.2.7.2.686 [id number] [facility] 2021-07-11 10:14:05 2021-07-11 23:59:00 Outpatient R ROMEL FIGUEROA [facility] [id number] [facility] 2021-07-11 10:14:05 2021-07-11 23:59:00 Hospital Encounter Romel Figueroa [facility] 1..114 350.1.13.10 4.2.7.2.686 [id number] [facility] 2021-07-11 10:00:00 2021-07-11 10:30:10 Office Visit Romel Figueroa [facility] 1.2.840.114 350.1.13.10 4.2.7.2.686 [id number] [facility] 2021-07-11 10:00:00 2021-07-11 10:00:00 Outpatient R FIGUEROA ROMEL [facility] [id number] [facility] 2021-07-11 00:00:00 2021-07-11 00:00:00 Orders Only Doctor Unassigned, [place] [id number] 350.1.13.10 4.2.7.2.686 [id number] [facility] 2021-07-10 00:00:00 2021-07-10 00:00:00 Orders Only Doctor Unassigned, [place] [id number] 350.1.13.10 4.2.7.2.686 [id number] [facility] 2020-01-10 22:25:00 2020-01-10 23:39:00 Emergency E SIMÓN AGUILERA [facility] MHBL 7500 MHBL Results Test Description Test Time Test Comments Results Result Co mments Source [facility] (A1C)2023-01-01 23:06:42* Test Item Value Reference Range Interpretation Comme nts HGB A1C (test code = 4548-4) 4.9 % 4.0-5.7 ANDRES (test code = ANDRES) Reference RangesNormal: <5.7%Prediabetes: 5.7 - 6.4%Diabetes: > 6.5% Lab Interpretation (test code = 32759-8) Normal [facility] [id number] 23:04:28 * Test Item Value Reference Range Interpretation Comme nts TSH (test code = 2248767348) 1.24 See_Comment [Automated messa ge] The system which generated this result transmitted reference range: 0.45 - 4.70 mIU/L. The reference range was not used to interpret this result as normal/abnormal. Lab Interpretation (test code = 14504-8) Normal [facility] [id number] 23:04:28 * Test Item Value Reference Range Interpretation Comme nts TSH (test code = 0095263886) 1.24 See_Comment [Automated messa ge] The system which generated this result transmitted reference range: 0.45 - 4.70 mIU/L. The reference range was not used to interpret this result as normal/abnormal. Lab Interpretation (test code = 78195-0) Normal [facility] [id number] 22:50:47* Test Item Value Reference Range Interpretation Comme nts FREE T4 (test code = 0713342446) 0.93 See_Comment [Automated messa ge] The system which generated this result transmitted reference range: 0.78 - 2.20 ng/dL:. The reference range was not used to interpret this result as normal/abnormal. Lab Interpretation (test code = 34815-6) Normal [facility] [id number] 22:50:47* Test Item Value Reference Range Interpretation Comme nts FREE T4 (test code = 1291877562) 0.93 See_Comment [Automated messa ge] The system which generated this result transmitted reference range: 0.78 - 2.20 ng/dL:. The reference range was not used to interpret this result as normal/abnormal. Lab Interpretation (test code = 17203-4) Normal [place] [id number] 22:50:27* Test Item Value Reference Range Interpretation Comme nts FREE T3 (test code = 8459349013) 3.61 pg/mL 2.77-5.27 Lab Interpretation (test cod e = 22049-6) Normal [place] [id number] 22:50:27* Test Item Value Reference Range Interpretation Comme nts FREE T3 (test code = 3306337399) 3.61 pg/mL 2.77-5.27 Lab Interpretation (test cod e = 40801-6) Normal [facility] (93568)(TOTAL CHOLESTEROL, TRIGLYCERIDES, HDL)2023-01-01 22:33:43* Test Item Value Reference Range Interpretation Comme nts CHOL (test code = 4842919558) 141 mg/dL 120-200 HDL (test code = 9871110517) 52 mg/dL >=50 HDLC RATIO (test code = 6181662420) 2.7 <=4.5 TRIG (test code = 9985192026) 71 mg/dL 30-170 LDL CHOL (test code = 12536-3) 75 mg/dL <=160 VLDL (test code = 5121257252) 14 mg/dL 5-60 Lab Interpretation (test cod e = 57397-6) [facility]7916[facility]2023-01-01 22:33:43* Test Item Value Reference Range Interpretation Comme nts NA (test code = 0262181770) 141 mmol/L 135-145 K (test code = 2753500767) 4.1 mmol/L 3.5-5.0 CL (test code = 5066820814) 105 mmol/L 98-108 CO2 TOTAL (test code = 7211855857) 26 mmol/L 23-31 AGAP (test code = 3261938735) 10 2-16 BUN (test code = 2094527294) 17 mg/dL 7-23 GLUCOSE (test code = 1029451505) 86 mg/dL 70-110 CREATININE (test code = 0714445519) 0.71 mg/dL 0.50-1.04 TOTAL BILI (test code = 5288414554) 0.5 mg/dL 0.1-1.1 CALCIUM (test code = 8257375184) 9.4 mg/dL 8.6-10.6 T PROTEIN (test code = 0074605800) 7.7 g/dL 6.3-8.2 ALBUMIN (test code = 6650039591) 4.5 g/dL 3.5-5.0 ALK PHOS (test code = 0466168398) 58 U/L 34-122 ALTv (test code = 1742-6) 19 U/L 5-35 AST(SGOT) (test code = 5288543250) 20 U/L 13-40 eGFR (test code = 8644144084) 103.9 mL/min/1.73m2 ANDRES (test code = ANDRES) [...] or urine or abnormalities in imaging tests). [facility] (63471)(TOTAL CHOLESTEROL, TRIGLYCERIDES, HDL)2023-01-01 22:33:43* Test Item Value Reference Range Interpretation Comme nts CHOL (test code = 2067560755) 141 mg/dL 120-200 HDL (test code = 8248312658) 52 mg/dL >=50 HDLC RATIO (test code = 9996651402) 2.7 <=4.5 TRIG (test code = 4402531958) 71 mg/dL 30-170 LDL CHOL (test code = 25765-8) 75 mg/dL <=160 VLDL (test code = 2626459004) 14 mg/dL 5-60 Lab Interpretation (test cod e = 88748-1) Normal [facility] (30397)2023-01-01 22:33:43* Test Item Value Reference Range Interpretation Comme nts NA (test code = 4810441823) 141 mmol/L 135-145 K (test code = 4376831743) 4.1 mmol/L 3.5-5.0 CL (test code = 6698704845) 105 mmol/L 98-108 CO2 TOTAL (test code = 6402768638) 26 mmol/L 23-31 AGAP (test code = 9459423651) 10 2-16 BUN (test code = 5740976013) 17 mg/dL 7-23 GLUCOSE (test code = 0822612173) 86 mg/dL 70-110 CREATININE (test code = 0277614228) 0.71 mg/dL 0.50-1.04 TOTAL BILI (test code = 2649806279) 0.5 mg/dL 0.1-1.1 CALCIUM (test code = 6899639178) 9.4 mg/dL 8.6-10.6 T PROTEIN (test code = 1760078638) 7.7 g/dL 6.3-8.2 ALBUMIN (test code = 3092478325) 4.5 g/dL 3.5-5.0 ALK PHOS (test code = 0124764763) 58 U/L 34-122 ALTv (test code = 1742-6) 19 U/L 5-35 AST(SGOT) (test code = 6682111566) 20 U/L 13-40 eGFR (test code = 7117037112) 103.9 mL/min/1.73m2 ANDRES (test code = ANDRES) [...] or urine or abnormalities in imaging tests). [facility] WITH [id number] 21:55:56* Test Item Value Reference Range Interpretation Comme nts WBC (test code = 6690-2) 6.15 See_Comment [Automated [employer]] The system which generated this result transmitted reference range: 4.30 - 11.10 10*3/?L. The reference range was not used to interpret this result as normal/abnormal. RBC (test code = 789-8) 4.58 See_Comment [[employer]] The system which generated this result transmitted [...] 33.1 g/dL 31.6-35.1 RDW-SD (test code = 19573-0) 39.9 fL 39.0-49.9 RDW-CV (test code = 788-0) 13.1 % 12.0-15.5 PLT (test code = 777-3) 257 See_Comment [[employer]] The system which generated this result transmitted reference range: 166 - 358 10*3/?L. The reference range was not used to interpret this result as normal/abnormal. MPV (test code = 58961-2) 11.5 fL 9.5-12.9 NRBC/100 WBC (test code = 4853563846) 0.0 See_Comment [Automated [employer]] The system which generated this result transmitted reference range: 0.0 - 10.0 /100 WBCs. The reference range was not used to interpret this result as normal/abnormal. NRBC x10^3 (test code = 0735572409) See_Comment [Automated [employer]] The system which generated this result transmitted reference range: 10*3/?L. The reference range was not used to interpret this result as normal/abnormal. GRAN MAT (NEUT) % (test code = 770-8) 56.4 % IMM GRAN % (test code = 9971652735) 0.20 % LYMPH % (test code = 736-9) 30.9 % MONO % (test code = 5905-5) 9.3 % EOS % (test code = 713-8) 2.4 % BASO % (test code = 706-2) 0.8 % GRAN MAT x10^3(ANC) (test code = 2354269490) 3.47 10*3/uL 1.88-7.09 IMM GRAN x10^3 (test code = 4986843180) 0.00-0.06 LYMPH x10^3 (test code = 731-0) 1.90 10*3/uL 1.32-3.29 MONO x10^3 (test code = 742-7) 0.57 10*3/uL 0.33-0.92 EOS x10^3 (test code = 711-2) 0.15 10*3/uL 0.03-0.39 BASO x10^3 (test code = 704-7) 0.05 10*3/uL 0.01-0.07 [facility] WITH [id number] 21:55:56* Test Item Value Reference Range Interpretation [...] 33.1 g/dL 31.6-35.1 RDW-SD (test code = 54610-8) 39.9 fL 39.0-49.9 RDW-CV (test code = 788-0) 13.1 % 12.0-15.5 PLT (test code = 777-3) 257 See_Comment [Automated [employer]] The system which generated this result transmitted reference range: 166 - 358 10*3/?L. The reference range was not used to interpret this result as normal/abnormal. MPV (test code = 82120-0) 11.5 fL 9.5-12.9 NRBC/100 WBC (test code = 6380287498) 0.0 See_Comment [Automated me ssage] The system which generated this result transmitted reference range: 0.0 - 10.0 /100 WBCs. The reference range was not used to interpret this result as normal/abnormal. NRBC x10^3 (test code = 2030283450) See_Comment [Automated me ssage] The system which generated this result transmitted reference range: 10*3/?L. The reference range was not used to interpret this result as normal/abnormal. GRAN MAT (NEUT) % (test code = 770-8) 56.4 % IMM GRAN % (test code = 4175877849) 0.20 % LYMPH % (test code = 736-9) 30.9 % MONO % (test code = 5905-5) 9.3 % EOS % (test code = 713-8) 2.4 % BASO % (test code = 706-2) 0.8 % GRAN MAT x10^3(ANC) (test code = 4528874347) 3.47 10*3/uL 1.88-7.09 IMM GRAN x10^3 (test code = 3392079754) 0.00-0.06 LYMPH x10^3 (test code = 731-0) 1.90 10*3/uL 1.32-3.29 MONO x10^3 (test code = 742-7) 0.57 10*3/uL 0.33-0.92 EOS x10^3 (test code = 711-2) 0.15 10*3/uL 0.03-0.39 BASO x10^3 (test code = 704-7) 0.05 10*3/uL 0.01-0.[address] [facility] [id number] 21:23:00* Test Item Value Reference Range Interpretation [...] = 3257) negative Negative - Negati ve [facility]/O SPECIFIC [id number] 21:23:00* Test Item Value Reference Range Interpretation [...] = 3257) negative Negative - Negati ve [facility] Notes Date/Time Note Provider Source 2024-10-05 15:33:07 Chief Complaint Patient presents with OTHER 7 week follow up on anxiety Juancarlos Cazares MA [facility] 2024-08-29 08:39:52 Chief Complaint Patient presents with OTHER Patient is present for 3 month follow up on obesity and DJD Juancarlos Cazares MA [employer] Juancarlos Cazares MA [facility] 2024-07-06 14:30:21 Chief Complaint Patient presents with Diarrhea Diarrhea and stomach cramps x 1 week OTHER Urinary frequency Headache No other voiced concerns [employer] John Francis MA, II [facility] 2024-06-12 16:13:05 Chief Complaint Patient presents with Vaginal Problem Christel Avilez CMA I [facility] 2024-05-29 11:04:49 Chief Complaint Patient presents with Follow-up 3 month follow up Bridgett Collins LVN [facility] 2024-05-19 11:10:30 Alexander Rooney is here today for her Well Woman Exam. Patient's last menstrual period was 05/04/2024. Control Method: None Additional concerns patient would like to address with provider: Vaginal odor; Discharge;Spotting; intermittent bleeding after menses. Jennie Osborn CMA II [facility] 2024-05-17 10:14:05 Chief Complaint Patient presents with [...] bladder incontinence. Patient denies weakness. ADE Padilla [facility] 2024-01-11 14:50:17 Chief Complaint Patient presents with Physical [facility] 2023-11-18 13:59:49 Chief Complaint Patient presents with New Patient Establish Care Weight and depression Bridgett Collins LVN [facility]"
[2025-02-27 23:26] LABS: Influenza A Ag Negative; Influenza B Ag Negative; SARS-CoV-2 Antigen Rapid Res Negative (Negative)
--- NOTE | 2025-02-28 00:01 | ER ---
Nurse's Notes [facility] Name: Dominga Rooney Age: 24 yrs Sex: Female : 2000 Arrival Date: 02/27/2025 Time: 22:36 Bed IW1 Private MD: Micheal Espinoza Diagnosis: Cough;Acute pharyngitis, unspecified Presentation: 02/27 22:48 Chief complaint: Patient states: I think I have a summer cold. I am feeling congested jb4 and have a cough, sore throat, and had diarrhea. Coronavirus screen: At this time, the client does not indicate any symptoms associated with coronavirus-19. Ebola Screen: No symptoms or risks identified at this time. Initial Sepsis Screen: Does the patient meet any 2 criteria? No. Patient's initial sepsis screen is negative. Does the patient have a suspected source of infection? No. Patient's initial sepsis screen is negative. Risk Assessment: Do you want to hurt yourself or someone else? Patient reports no desire to harm self or others. Onset of symptoms was February 21, 2025. Transition of care: patient was not received from another setting of care. 22:48 Method Of Arrival: Ambulatory jb4 22:48 Acuity: JUAN 4 jb4 Historical: - Allergies: 22:50 No Known Allergies; jb4 - PMHx: 22:50 Anxiety; degenerative disc; depressive disorder; scoliosis; jb4 - PSHx: 22:50 None; jb4 - Immunization history:: Adult Immunizations up to date. - Infectious Disease History:: Denies. - Social history:: Smoking status: Patient denies any tobacco usage or history of. Patient uses alcohol, but reports only rare drinking. Screenin/06 00:30 [facility] ED Fall Risk Assessment (Adult) History of falling in the last 3 months, jb4 including since admission No falls in past 3 months (0 pts) Confusion or Disorientation No (0 pts) Intoxicated or Sedated No (0 pts) Impaired Gait No (0 pts) Mobility Assist Device Used No (0 pt) Altered Elimination No (0 pt) Score/Fall Risk Level 0 - 2 = Low Risk Oriented to surroundings, Maintained a safe environment. Abuse screen: Denies threats or abuse. Nutritional screening: No deficits noted. Tuberculosis screening: No symptoms or risk factors identified. Assessment: 02/27 23:00 General: Appears in no apparent distress. comfortable, Behavior is calm, cooperative. jb4 Pain: Denies pain. Neuro: Level of Consciousness is awake, alert, obeys commands, Oriented to person, place, time, situation. Cardiovascular: Patient's skin is warm and dry. Respiratory: Airway is patent Respiratory effort is even, unlabored, Respiratory pattern is regular, symmetrical. Derm: Skin is intact, Skin is dry, Skin is normal, Skin temperature is warm. Musculoskeletal: Circulation, motion, and sensation intact. Range of motion: intact in all extremities. 02/28 00:30 Reassessment: Patient appears in no apparent distress at this time. Patient and/or jb4 family updated on plan of care and expected duration. Pain level reassessed. Patient is alert, oriented x 3, equal unlabored respirations, skin warm/dry/pink. Vital Signs: 02/27 22:48 BP 131 / 102; Pulse 94; Resp 16; Temp 98.9(O); Pulse Ox 100% on R/A; Weight 142.88 kg jb4 (R); Height 5 ft. 6 in. (R); Pain 0/10; 22:48 Body Mass Index 50.84 (142.88 kg, 167.64 cm) jb4 22:48 Pain Scale: Adult jb4 ED Course: 22:38 Patient arrived in ED. jj6 22:38 Micheal Espinoza MD is Private Physician. jj6 22:39 Mohan Alegre PA is PHCP. cp 22:39 Zev Choe MD is Attending Physician. cp 22:50 Triage completed. jb4 22:50 Arm band placed on right wrist. jb4 02/28 00:30 Patient has correct armband on for positive identification. Provided Education on: jb4 discharge instructions.. 00:30 No provider procedures requiring assistance completed. Patient did not have IV access jb4 during this emergency room visit. Administered Medications: No medications were administered Medication: 00:30 VIS not applicable for this client. jb4 Outcome: 00:00 Discharge ordered by . cp 00:30 Discharged to home ambulatory, with family, jb4 00:30 Condition: stable 00:30 Discharge instructions given to patient, Instructed on discharge instructions, follow up and referral plans. medication usage, Demonstrated understanding of instructions, follow-up care, medications, Prescriptions given X 3, 00:31 Patient left the ED. jb4 Signatures: Mohan Alegre PA PA cp Bryson, James, RN RN jb4 Waleska Farmer jj6 Corrections: (The following items were deleted from the chart) 00:31 00:30 Patient has correct armband on for positive identification. Bed in low position. jb4 Call light in reach. Side rails up X 1. jb4
--- NOTE | 2025-02-28 00:01 | EDPHYS ---
Physician Documentation [facility] Name: Dominga Rooney Age: 24 yrs Sex: Female : 2000 Arrival Date: 02/27/2025 Time: 22:36 Bed IW1 Private MD: Micheal Espinoza ED Physician Zev Choe HPI: 02/27 23:00 This 24 yrs old Black Female presents to ER via Ambulatory with complaints of Flu cp Symptoms. 23:00 The patient or guardian reports cough, that is intermittent, sore throat. Onset: The cp symptoms/episode began/occurred last week, on Wednesday. Associated signs and symptoms: Pertinent positives: rhinorrhea, sore throat, Pertinent negatives: chest pain, diarrhea, fever, vomiting. Severity of symptoms: in the emergency department the symptoms are unchanged despite home interventions. Historical: - Allergies: 22:50 No Known Allergies; jb4 - PMHx: 22:50 Anxiety; degenerative disc; depressive disorder; scoliosis; jb4 - PSHx: 22:50 None; jb4 - Immunization history:: Adult Immunizations up to date. - Infectious Disease History:: Denies. - Social history:: Smoking status: Patient denies any tobacco usage or history of. Patient uses alcohol, but reports only rare drinking. ROS: 23:05 Constitutional: Negative for body aches, fever, poor PO intake, cp 23:05 Respiratory: Positive for cough, "sounds productive", Negative for shortness of breath, cp wheezing, 23:05 Eyes: Negative for injury, pain, redness, and discharge, cp 23:05 ENT: Positive for sore throat, Negative for drainage from ear(s), ear pain, difficulty swallowing, difficulty handling secretions, 23:05 Abdomen/GI: Negative for abdominal pain, vomiting, diarrhea, constipation, 23:05 Skin: Negative for rash, 23:05 All other systems are negative, cp Exam: 23:10 Constitutional: The patient appears in no acute distress, alert, awake, comfortable, cp non-toxic, well developed, well nourished, obese, 23:10 Head/Face: Normocephalic, atraumatic. cp 23:10 Eyes: Periorbital structures: appear normal, Conjunctiva: normal, no exudate, no injection, Sclera: no appreciated abnormality, Lids and lashes: appear normal, bilaterally, 23:10 ENT: External ear(s): are unremarkable, Ear canal(s): are normal, clear, TM's: bulging, is not appreciated, bilaterally, dullness, bilaterally, erythema, is not appreciated, bilaterally, Nose: is normal, Mouth: Lips: moist, Oral mucosa: moist, Posterior pharynx: Airway: no evidence of obstruction, patent, Tonsils: no enlargement, no exudate, erythema, that is mild, exudate, is not appreciated, 23:10 Neck: ROM/movement: Meningeal signs: are not present, Lymph nodes: no appreciated lymphadenopathy, 23:10 Cardiovascular: Rate: normal, cp 23:10 Respiratory: the patient does not display signs of respiratory distress, Respirations: normal, no use of accessory muscles, no retractions, labored breathing, is not present, Breath sounds: are clear throughout, no decreased breath sounds, no stridor, no wheezing, 23:10 Abdomen/GI: Inspection: abdomen appears normal, Vital Signs: 22:48 BP 131 / 102; Pulse 94; Resp 16; Temp 98.9(O); Pulse Ox 100% on R/A; Weight 142.88 kg jb4 (R); Height 5 ft. 6 in. (R); Pain 0/10; 22:48 Body Mass Index 50.84 (142.88 kg, 167.64 cm) jb4 22:48 Pain Scale: Adult jb4 MDM: 23:30 Differential diagnosis: bronchitis, flu, URI, pneumonia, strep throat. 02/28 00:00 Medical Screening Exam initiated cp 00:00 Data reviewed: vital signs, nurses notes, lab test result(s), and as a result, I will cp discharge patient. 00:00 Counseling: I had a detailed discussion with the patient and/or guardian regarding the cp historical points, exam findings, and any diagnostic results supporting the discharge/admit diagnosis, lab results, to return to the emergency department if symptoms worsen or persist or if there are any questions or concerns that arise at home. 08 22:55 Order name: Group A Streptococcus Rapid 02/27 22:55 Order name: COVID-19 Ag + Flu A+B Ag 02/27 23:27 Order name: Throat Culture EDMS Administered Medications: No medications were administered Disposition: 06:48 Co-signature as Attending Physician, Zev Choe MD I reviewed the patient's care rn provided by the Advanced Practice Provider and agree with the diagnosis and treatment plan. Disposition Summary: 02/28/25 00:00 Discharge Ordered Notes: Location: Home cp Problem: new cp Symptoms: have improved cp Condition: Stable cp Diagnosis - Cough cp - Acute pharyngitis, unspecified cp Followup: cp - With: Private Physician - When: 2 - 3 days - Reason: Worsening of condition Discharge Instructions: - Discharge Summary Sheet cp - Pharyngitis cp - Upper Respiratory Infection, Adult cp - Cough, Adult cp Forms: - Medication Reconciliation Form cp - Antibiotic Education cp - Prescription Opioid Use cp - Patient Portal Instructions cp - Leadership Thank You Letter cp Prescriptions: - Bromfed DM 2-30-10 mg/5 mL Oral syrup - administer 10 milliliter ORAL route every 8 hours as needed for cold symptoms; cp 240 milliliter; Refills: 0, Product Selection Permitted - Ibuprofen 800 mg Oral Tablet - take 1 tablet ORAL route every 8 hours As needed take with food; 30 tablet; cp Refills: 0, Product Selection Permitted - Zithromax Z-Horacio 250 mg Oral Tablet - take 1 tablet ORAL route as directed for 5 days Day 1 - take two (2) tablets cp one time. Day 2, 3, 4 , 5 take one (1) tablet once daily.; 6 tablet; Refills: 0, Product Selection Permitted Signatures: Dispatcher [employer] EDZev Ribeiro MD MD rn Page, Corey, PA PA cp Garrick Carter RN RN jb4 Corrections: (The following items were deleted from the chart) 02/27 23:59 23:58 This 24 yrs old Black Female presents to ER via Ambulatory with complaints of Flu cp Symptoms. cp
[2025-02-28 00:51] VITALS: BP 131/102; TEMP 98.9; O2SAT 100
== END 2025-02-28 00:31 | disposition home or self-care (01) ==
LOC: ER 22:36
DX: R05.9 Cough, unspecified (principal); J02.9 Acute pharyngitis, unspecified; Z11.52 Encounter for screening for COVID-19
CPT/HCPCS: 36415; 87428; 99283